=== PATIENT | male | born 1960 | race Caucasian/White ===

== ENCOUNTER 2020-04-27 15:09 | Emergency (ER) | payer BC, SELFPAY ==
--- NOTE | ~2020-04-27 | CT_ITS ---
EXAMINATION: CT abdomen pelvis w con INDICATION: Diarrhea TECHNIQUE: Computed tomographic images of the abdomen and pelvis were obtained after the administrati on of 100 cc of Omnipaque 350 intravenous contrast. The dose-length product (DLP) was 991.60 mGy-cm. Automated exposure control and iterative reconstruction technique were employed. COMPARISON: None available FINDINGS: Minimal dependent atelectasis is present in the lung bases. The heart size is normal. The g allbladder is surgically absent. The liver is diffusely low in attenuation when compared with the spl een, consistent with hepatic steatosis. The spleen, pancreas, and adrenal glands are normal. The left kidney is unremarkable. There is a 1.4 x 1.1 cm exophytic soft tissue density lesion projecting from the posterolateral aspect of the right kidney lower pole. There is calcified atherosclerosis of the aorta and many of the other arteries. No pathologically enlarged abdominal or pelvic lymph nodes are identified. There is no free intraperitoneal gas or evidence of bowel obstruction. There was liquid s tool in the colon to the level of the rectum, consistent with clinical history of diarrhea. There is mild lumbar spondylosis. There is a small fat-containing umbilical hernia. IMPRESSION: 1. Liquid stool in colon to the level of the rectum, consistent with history of diarrhea. 2. Indeterminate right kidney mass. Follow-up with nonemergent CT or MRI without and with contrast is recommended. Reviewed, dictated and finalized at location A. IMPRESSION: 1. Liquid stool in colon to the level of the rectum, consistent with history of diarrhea. 2. Indeterminate right kidney mass. Follow-up with nonemergent CT or MRI withou t and with contrast is recommended.
[2020-04-27 15:14] VITALS: BP 147/67; PULSE 73; RESP 20; TEMP 36.2; O2SAT 98
[2020-04-27] MEDS: ONDANSETRON INJ 4 MG/2 ML VIAL IV PUSH (15:36)
[2020-04-27] MEDS: FAMOTIDINE 20 MG/2 ML VIAL IV PUSH (15:36)
[2020-04-27] MEDS: SODIUM CHLORIDE 0.9% IV 1,000 ML 999 ML IV CONT (15:36)
[2020-04-27 15:41] LABS: Basophils Absolute Auto 0.1 K/mm3 (0.0-0.1); Basophils Percent Auto 0.7 % (0.2-1.2); Eosinophils Absolute Auto 0.4 K/mm3 (0-0.3); Eosinophils Percent Auto 4.7 % (0-4.4); Hematocrit 38.3 % (42.0-52.0); Immature Granulocyte Absolute 0.02 K/mm3 (0.00-0.031); Immature Granulocyte Percent A 0.2 % (0-0.5); Lymphocytes Absolute Auto 2.53 K/mm3 (0.9-3.2); Lymphocytes Percent Auto 28.7 % (18.3-44.2); Mean Corpuscular HGB Conc 33.9 g/dl (32-36); Mean Corpuscular Hemoglobin 29.7 pg (26-34); Mean Corpuscular Volume 87.4 fl (80-100); Mean Platelet Volume 10.2 fl (7.4-10.4); Monocytes Absolute Auto 0.8 K/mm3 (0.1-0.6); Monocytes Percent Auto 9.4 % (2.6-8.5); Neutrophils Percent Auto 56.3 % (45.5-73.1); Platelet Count Result 285 k/mm3 (150-375); Red Blood Count 4.38 M/mm3 (4.6-6.20); Red Cell Distribution Width 13.2 % (11.5-14.5); White Blood Count 8.8 K/mm3 (4.5-10.0)
--- NOTE | 2020-04-27 15:47 | ED.GENADULT ---
HPI - General Adult General Chief complaint: Nausea/Vomiting/Diarrhea <Mal Pichardo PA-C - Last Filed: 04/27/20 19:15> Stated complaint: diarrhea <Mal Pichardo PA-C - Last Filed: 04/27/20 19:15> Time Seen by Provider: 04/27/20 15:19 <Mla Pichardo PA-C - Last Filed: 04/27/20 19:15> Source: patient <Mal Pichardo PA-C - Last Filed: 04/27/20 19:15> Mode of arrival: ambulatory <Mal Pichardo PA-C - Last Filed: 04/27/20 19:15> Limitations: no limitations <Mal Pichardo PA-C - Last Filed: 04/27/20 19:15> History of Present Illness HPI narrative: Patient is a 59-year-old male who presents to emergency department for evaluation of abdominal pain in the lower quadrants of the abdomen coupled with multiple loose stools for which she has been taken Imodium patient on arrival to emergency department is in the room in no distress denies similar occurrence in the past or any sick contacts patient. Denies rectal bleeding or melena. Notes nausea but denies emesis <Mal Pichardo PA-C - Last Filed: 04/27/20 19:15> Related Data Allergies/adverse reactions: Allergies Allergy/AdvReac Type Severity Reaction Status Date / Time No Known Allergies Allergy Verified 04/27/20 15:16 <Mal Pichardo PA-C - Last Filed: 04/27/20 19:15> Review of Systems Review of Systems: All systems reviewed & are unremarkable except as noted in HPI and below <Mal Pichardo PA-C - Last Filed: 04/27/20 19:15> [facility] Past Medical History Medical History: Medical History Alternating constipation and diarrhea Colon cancer screening GERD (gastroesophageal reflux disease) Psoriasis <Mal Pichardo PA-C - Last Filed: 04/27/20 19:15> Family History Family History: Family History (Updated 07/26/19 @ 14:40 by DOCTOR UNKNOWN) Father Family history of diabetes mellitus in first degree relative Family history of heart disease in male family member before age 55 Diabetes mellitus Mother Family history of diabetes mellitus in first degree relative Diabetes mellitus Grandparent Family history of malignant neoplasm Other Family history of allergic disorder Family history of tuberculosis Hypertension <Mal Pichardo PA-C - Last Filed: 04/27/20 19:15> Social History Social History: Social History Smoking status: Current every day smoker Alcohol intake: current <Mal Pichardo PA-C - Last Filed: 04/27/20 19:15> Exam Narrative: Exam Narrative: GENERAL: Well-appearing, well-nourished, and in no acute distress. HEAD: Normocephalic, atraumatic. EYES: PERRLA and EOMI. ENT: Nares clear, no rhinorrhea or epistaxis. Mucous membranes moist. CHEST: Clear to auscultation. No respiratory distress. No wheezes rales or rhonchi HEART: Regular rate and rhythm. No murmur heard. Normal peripheral pulses. ABDOMEN: Soft, tenderness in the lower quadrants of the abdomen, distended EXTREMITIES: Normal range of motion. No edema. SKIN: Warm, dry, no rash. NEURO: No focal deficits. Alert and oriented x3. Cranial nerves II through XII grossly intact PSYCH: Normal mood and affect. <Mal Pichardo PA-C - Last Filed: 04/27/20 19:15> Course Course Emergency Course: Patient in the room aware of case findings treatment plan and diagnosis agreeing to follow-up as directed or to return if symptoms worsen or concerns patient aware of case findings was given 3 L of fluid in the emergency department will be discharged home. Provided with reasons to return <Mal Pichardo PA-C - Last Filed: 04/27/20 19:15> Vital Signs Vital signs: Vital Signs Temperature 97.1 F L 04/27/20 15:14 Pulse Rate 73 04/27/20 15:14 Respiratory Rate 20 04/27/20 15:14 Blood Pressure 147/67 H 04/27/20 15:14 Pulse Oximetry 98 04/27/20 15:14 Te
[2020-04-27 16:02] LABS: Alanine Aminotransferase 92 U/L (4-50); Albumin Level 5.2 g/dL (3.5-5.1); Alkaline Phosphatase 71 U/L (38-126); Anion Gap 20.6 mmol/L (7-16); Aspartate Amino Transferase 85 U/L (17-59); Bilirubin,Total 0.8 mg/dL (0.2-1.3); Blood Urea Nitrogen 26 mg/dL (9-20); Calcium 9.8 mg/dL (8.4-10.2); Carbon Dioxide 19 mmol/L (22-30); Chloride 102 mmol/L (98-107); Estimated CRCL calculation 46 ml/min; Estimated Glomerular Filt Rate 42; Glucose 141 mg/dL (75-110); Lipase 113 U/L (23-300); Potassium 4.6 mmol/L (3.4-5.0); Sodium 137 mmol/L (137-145)
[2020-04-27] MEDS: LACTATED RINGERS 1,000 ML 999 ML IV CONT ×2 (17:00→18:05)
[2020-04-27 18:13] VITALS: BP 136/78; PULSE 80; RESP 12; O2SAT 99
[2020-04-27 18:36] LABS: Add Urine Microscopic? NO; Appearance Urine Clear (Clear); Bilirubin Urine Negative (Negative); Blood Urine Negative (Negative); Color Urine Colorless (Yellow); Glucose Urine UA Negative (Negative); Ketones Urine Negative (Negative); Leukocyte Esterase Ur Negative LEU/UL (Negative); Nitrate Urine Negative (Negative); Protein Urine Negative (Negative); Specific Grav Ur 1.016 (1.001-1.035); Urobilinogen Urine Negative mg/dL (<2.0)
[2020-04-27 19:32] VITALS: BP 141/82; PULSE 76; RESP 18; TEMP 36.7; O2SAT 99
== END 2020-04-27 19:33 | disposition home or self-care (01) ==
PROVIDERS: Emergency Medicine Emergency Medical Services; Emergency Provider Emergency Medicine; PCP Family Medicine Sports Medicine
DX: R19.7 Diarrhea, unspecified (principal); E86.0 Dehydration; K21.9 Gastro-esophageal reflux disease without esophagitis; F17.200 Nicotine dependence, unspecified, uncomplicated
CPT/HCPCS: 36415; 74177; 80053; 81003; 83690; 85025; 96361; 96374; 96375; 99284; J2405; J7030; J7120; Q9967

== ENCOUNTER 2021-04-20 00:18 | Day surgery (SDC) | payer BC, SELFPAY ==
[2021-04-04 12:28] VITALS: BMI 27.6
[2021-04-20 10:34] LABS: Glucose Point of Care 117 mg/dl (65-105)
[2021-04-20 10:35] VITALS: BP 150/78; PULSE 71; RESP 16; TEMP 36.3; O2SAT 98; BMI 29.0
[2021-04-20] MEDS: LACTATED RINGERS 1,000 ML 150 ML IV CONT (10:43)
--- NOTE | 2021-04-20 10:48 | WPDANESEPPF ---
Anes - Initial Pre Proc Eval Procedure: Operation Date: 04/20/21 11:30 Proposed Procedures p Esophagogastroduodenoscopy - Cecil Rai MD Date/Time: 04/20/21 10:48 Surgeon: eCcil Rai MD Pre Op Diagnosis: GERD Patient Data Age: 60 Gender: M Height: 1.8 m Weight: 94.3 kg Last Vital Signs Temp 36.3 C L 04/20/21 10:35 Pulse 71 04/20/21 10:35 Resp 16 04/20/21 10:35 BP 150/78 H 04/20/21 10:35 Pulse Ox 98 04/20/21 10:35 Allergies Allergy/AdvReac Type Severity Reaction Status Date / Time No Known Allergies Allergy Verified 04/20/21 10:34 Home Medications Medication Instructions Recorded Confirmed Type amlodipine 10 mg tablet 10 mg PO DAILY 02/08/21 04/04/21 History aspirin 81 mg tablet,delayed 81 mg PO DAILY 02/08/21 04/04/21 History release atorvastatin 40 mg tablet 40 mg PO DAILY 02/08/21 04/04/21 History certolizumab pegol 400 mg SUBCUT ONCE 02/08/21 04/04/21 History dulaglutide 0.75 mg/0.5 mL 0.75 mg SUBCUT WEEKLY 02/08/21 04/04/21 History subcutaneous pen injector fenofibrate 40 mg tablet 48 mg PO DAILY tablet 02/08/21 04/04/21 History icosapent ethyl 1 gram capsule 2 g PO BID 02/08/21 04/04/21 History losartan 100 1 tablet PO DAILY 02/08/21 04/04/21 History mg-hydrochlorothiazide 12.5 mg tablet meloxicam 7.5 mg tablet 7.5 mg PO DAILY 02/08/21 04/04/21 History metformin 1,000 mg tablet 1,000 mg PO BID 02/08/21 04/04/21 History metoprolol tartrate 50 mg tablet 50 mg PO Q12H 02/08/21 04/04/21 History Laboratory Tests 04/20/21 10:31 POC Capillary Glucose 117 mg/dl H mg/dl (65-105) Patient hx anesthesia problems: none Family hx anesthesia problems: none PMFSH Past Medical History Medical History Alternating constipation and diarrhea Arthritis Bloating CAD (coronary artery disease) Chronic pain syndrome Colon cancer screening Diabetes GERD (gastroesophageal reflux disease) Hyperlipidemia Hypertension Irritable bowel syndrome with diarrhea Myocardial infarction Psoriasis Surgical History Surgical History Stented coronary artery Family History Family History Father Family history of diabetes mellitus in first degree relative Family history of heart disease in male family member before age 55 Diabetes mellitus Mother Family history of diabetes mellitus in first degree relative Diabetes mellitus Grandparent Family history of malignant neoplasm Other Family history of allergic disorder Family history of tuberculosis Hypertension Social History Social History Smoking status: Former smoker Tobacco type: cigarettes Alcohol intake: current Alcohol use details: socially Substance use: never Substance use type: does not use Gender identity (if verbalized by the patient): Male Spiritual care concerns: No Anes - Eval Final PreProcedure Day of Procedure 04/20/21 10:48 Patient weight: obese Heart: regular rate and rhythm Lungs: decreased breath sounds Airway: Mallampati scale class III Neurological: alert and oriented ASA classification: III Emergent: no Anesthetic plan: proceed Anesthesia type and monitoring: general GIVS and standard monitoring Informed Consent: The patient's anesthetic plan and its attendant risks and benefits were discussed with the patient/family/POA. Questions were solicited and answers provided to the satisfaction of the patient/family/POA.
--- NOTE | 2021-04-20 12:25 | PM.HPGS ---
History of Present Illness History of Present Illness Consent: Risks, benefits, and alternatives have been discussed and questions answered. Patient agrees to proceed with procedure. Chief complaint: GERD Narrative: Alberto Schroeder is a 60 year old male with gerd controlled with ppi but recurrent bloating and diarrhea (improved briefly after second round of xifaxan), colonoscopy 2019 in [facility]. Review of Systems Constitutional: Constitutional: Denies headache(s) and Denies weakness Eyes: Eyes: Denies blurry vision ENT: Reports Normal hearing present, Denies headache(s) and Denies neck pain Cardiovascular: Cardiovascular: Denies chest pain and Denies dyspnea Respiratory: Respiratory: Denies dyspnea Gastrointestinal: Gastrointestinal: Reports no additional gastrointestinal complaints Genitourinary: Genitourinary: Denies dysuria Musculoskeletal: Musculoskeletal: Denies neck pain Integumentary/Breasts: Skin/Breast: Denies dry skin Neurologic: Reports Normal hearing present, Denies headache(s) and Denies weakness Psychiatric: Psychiatric: Denies anxiety Endocrine: Endocrine: Denies change in body appearance Hematologic/Lymphatic: Hematologic/Lymphatic: Denies easy bleeding Allergic/Immunologic: Allergic/Immunologic: Denies urticaria PMFSH Past Medical History Medical History Alternating constipation and diarrhea Arthritis Bloating CAD (coronary artery disease) Chronic pain syndrome Colon cancer screening Diabetes GERD (gastroesophageal reflux disease) Hyperlipidemia Hypertension Irritable bowel syndrome with diarrhea Myocardial infarction Psoriasis Surgical History Surgical History Stented coronary artery Family History Family History Father Family history of diabetes mellitus in first degree relative Family history of heart disease in male family member before age 55 Diabetes mellitus Mother Family history of diabetes mellitus in first degree relative Diabetes mellitus Grandparent Family history of malignant neoplasm Other Family history of allergic disorder Family history of tuberculosis Hypertension Social History Social History Smoking status: Former smoker Tobacco type: cigarettes Alcohol intake: current Alcohol use details: socially Substance use: never Substance use type: does not use Gender identity (if verbalized by the patient): Male Spiritual care concerns: No Meds Home Medications and Allergies Home Medications Medication Instructions Recorded Confirmed Type amlodipine 10 mg tablet 10 mg PO DAILY 02/08/21 04/20/21 History aspirin 81 mg tablet,delayed 81 mg PO DAILY 02/08/21 04/20/21 History release atorvastatin 40 mg tablet 40 mg PO DAILY 02/08/21 04/20/21 History certolizumab pegol 400 mg SUBCUT ONCE 02/08/21 04/20/21 History dulaglutide 0.75 mg/0.5 mL 0.75 mg SUBCUT WEEKLY 02/08/21 04/20/21 History subcutaneous pen injector fenofibrate 40 mg tablet 48 mg PO DAILY tablet 02/08/21 04/20/21 History icosapent ethyl 1 gram capsule 2 g PO BID 02/08/21 04/20/21 History losartan 100 1 tablet PO DAILY 02/08/21 04/20/21 History mg-hydrochlorothiazide 12.5 mg tablet meloxicam 7.5 mg tablet 7.5 mg PO DAILY 02/08/21 04/20/21 History metformin 1,000 mg tablet 1,000 mg PO BID 02/08/21 04/20/21 History metoprolol tartrate 50 mg tablet 50 mg PO Q12H 02/08/21 04/20/21 History Allergies Allergy/AdvReac Type Severity Reaction Status Date / Time No Known Allergies Allergy Verified 04/20/21 10:34 Vital Signs Vital Signs - 24 hr 04/20/21 10:35 Temperature 97.3 F L Pulse Rate 71 Respiratory Rate 16 Blood Pressure 150/78 H Pulse Oximetry 98 Exam Const: General: comfortable and no acute distress HENMT:
[2021-04-20] MEDS: BENZOCAINE (*SP) 60 ML SPRAY CAN (HURRICAINE) 1 SPRAY MUCOUS MEM (12:36)
[2021-04-20 12:50] VITALS: BP 143/70; PULSE 80; RESP 24; O2SAT 100
[2021-04-20 13:00] VITALS: BP 152/73; PULSE 72; RESP 20; O2SAT 97
[2021-04-20 13:10] VITALS: BP 145/79; PULSE 67; RESP 20; O2SAT 98
== END 2021-04-20 13:21 | disposition home or self-care (01) ==
PROVIDERS: PCP Family Medicine Sports Medicine; Visit Provider Internal Medicine Gastroenterology
PROC: 0DJ08ZZ Inspection of Upper Intestinal Tract, Via Natural or Artificial Opening Endoscopic (ICD-10-PCS; CPT 43235; principal; 2021-04-20 11:30)
DX: K21.9 Gastro-esophageal reflux disease without esophagitis (principal); K29.70 Gastritis, unspecified, without bleeding; K58.2 Mixed irritable bowel syndrome; R14.0 Abdominal distension (gaseous); I25.10 Atherosclerotic heart disease of native coronary artery without angina pectoris; E11.9 Type 2 diabetes mellitus without complications; E78.5 Hyperlipidemia, unspecified; I10 Essential (primary) hypertension; I25.2 Old myocardial infarction; L40.9 Psoriasis, unspecified; M19.90 Unspecified osteoarthritis, unspecified site; G89.29 Other chronic pain; Z95.5 Presence of coronary angioplasty implant and graft; Z87.891 Personal history of nicotine dependence
CPT/HCPCS: 43239; 82948; 87070; 87075; 87077; 87185; 87205; 88305; 88342; J2704; J7120

== ENCOUNTER 2021-04-20 09:10 | Outpatient (CLI) | payer BC, SELFPAY ==
[2021-04-20 09:36] LABS: Basophils Absolute Auto 0.1 K/mm3 (0.0-0.1); Basophils Percent Auto 0.9 % (0.2-1.2); Eosinophils Absolute Auto 0.2 K/mm3 (0-0.3); Eosinophils Percent Auto 2.5 % (0-4.4); Hematocrit 38.2 % (42.0-52.0); Hemoglobin 12.3 g/dL (14.0-18.0); Immature Granulocyte Absolute 0.02 K/mm3 (0.00-0.031); Immature Granulocyte Percent A 0.3 % (0-0.5); Lymphocytes Absolute Auto 2.79 K/mm3 (0.9-3.2); Lymphocytes Percent Auto 37.3 % (18.3-44.2); Mean Corpuscular HGB Conc 32.2 g/dl (32-36); Mean Corpuscular Hemoglobin 28.6 pg (26-34); Mean Corpuscular Volume 88.8 fl (80-100); Mean Platelet Volume 9.6 fl (7.4-10.4); Monocytes Absolute Auto 0.5 K/mm3 (0.1-0.6); Monocytes Percent Auto 7.2 % (2.6-8.5); Neutrophils Absolute Auto 3.9 K/mm3 (1.3-6.7); Neutrophils Percent Auto 51.8 % (45.5-73.1); Platelet Count Result 279 k/mm3 (150-375); Red Cell Distribution Width 13.2 % (11.5-14.5); White Blood Count 7.5 K/mm3 (4.5-10.0)
[2021-04-20 09:58] LABS: Alanine Aminotransferase 48 U/L (4-50); Albumin Level 4.9 g/dL (3.5-5.1); Alkaline Phosphatase 62 U/L (38-126); Anion Gap 14 mmol/L (8-16); Aspartate Amino Transferase 43 U/L (17-59); Bilirubin,Total 0.6 mg/dL (0.2-1.3); Blood Urea Nitrogen 26 mg/dL (9-20); Calcium 9.7 mg/dL (8.4-10.2); Carbon Dioxide 24 mmol/L (22-30); Chloride 101 mmol/L (98-107); Estimated Glomerular Filt Rate 39; Glucose 131 mg/dL (75-110); Potassium 4.6 mmol/L (3.4-5.0); Sodium 139 mmol/L (137-145)
== END 2021-04-20 09:11 | disposition home or self-care (01) ==
LOC: ANHLAB 09:11
PROVIDERS: PCP Family Medicine Sports Medicine; Visit Provider Internal Medicine Cardiovascular Disease
DX: I25.118 Atherosclerotic heart disease of native coronary artery with other forms of angina pectoris (principal)
CPT/HCPCS: 36415; 80053; 85025

== ENCOUNTER 2021-04-24 01:25 | Day surgery (SDC) | payer BC, SELFPAY ==
[2021-04-24] VITALS (19 sets, daily range): BP systolic 132–163; BP diastolic 45–91; PULSE 65–90; RESP 10–20; TEMP 36.4–36.7; O2SAT 96–100; BMI 28.8
--- NOTE | 2021-04-24 10:14 | WPDMODSED ---
Moderate Sedation Note-Pt Data Patient Data Allergies Allergy/AdvReac Type Severity Reaction Status Date / Time No Known Allergies Allergy Verified 04/20/21 10:34 Home Medications Medication Instructions Recorded Confirmed Type amlodipine 10 mg tablet 10 mg PO DAILY 02/08/21 04/23/21 History aspirin 81 mg tablet,delayed 81 mg PO DAILY 02/08/21 04/23/21 History release atorvastatin 40 mg tablet 40 mg PO DAILY 02/08/21 04/23/21 History certolizumab pegol 400 mg SUBCUT ONCE 02/08/21 04/23/21 History dulaglutide 0.75 mg/0.5 mL 0.75 mg SUBCUT WEEKLY 02/08/21 04/23/21 History subcutaneous pen injector fenofibrate 40 mg tablet 48 mg PO DAILY tablet 02/08/21 04/23/21 History icosapent ethyl 1 gram capsule 2 g PO BID 02/08/21 04/23/21 History losartan 100 1 tablet PO DAILY 02/08/21 04/23/21 History mg-hydrochlorothiazide 12.5 mg tablet meloxicam 7.5 mg tablet 15 mg PO DAILY 02/08/21 04/23/21 History metformin 1,000 mg tablet 1,000 mg PO BID 02/08/21 04/23/21 History metoprolol tartrate 50 mg tablet 50 mg PO Q12H 02/08/21 04/23/21 History clobetasol 1 applic TOPICAL PRN PRN 04/23/21 04/23/21 History [id number] oil-D3 1 cap PO 04/23/21 History [Vitamin-D + [place]-3] Current Medications: Active Medications Sodium Chloride (Normal Saline Iv) 500 mls @ 100 mls/hr IV CONT .Q5H JESUS Sedation/Anesthesia: No previous sedation/anesthesia problems (including family history). [facility] Past Medical History Medical History Alternating constipation and diarrhea Arthritis Bloating CAD (coronary artery disease) Chronic pain syndrome Colon cancer screening Diabetes GERD (gastroesophageal reflux disease) Hyperlipidemia Hypertension Irritable bowel syndrome with diarrhea Myocardial infarction Psoriasis Surgical History Surgical History Stented coronary artery Family History Family History Father Family history of diabetes mellitus in first degree relative Family history of heart disease in male family member before age 55 Diabetes mellitus Mother Family history of diabetes mellitus in first degree relative Diabetes mellitus Grandparent Family history of malignant neoplasm Other Family history of allergic disorder Family history of tuberculosis Hypertension Social History Social History Smoking status: Former smoker Tobacco type: cigarettes Additional smoking assessment comments: 3/4 PPD for 40 years Alcohol intake: never Alcohol use details: socially Substance use: never Substance use type: does not use Living arrangements: with family Additional living arrangements comments: with juventino Gender identity (if verbalized by the patient): Male Spiritual care concerns: No Mod Sed Physical Exam Physical Exam Pre Procedural Exam: Normal: Airway Hours since solid foods: 10 Hours since liquid intake: 10 Mallampati Classification: class II Internal Medicine - PN: Obj Da Vital Signs Vital Signs: Vital Signs - 24 hr 04/24/21 09:00 Temperature 36.4 C Pulse Rate 68 Respiratory Rate 11 L Blood Pressure 143/72 H Pulse Oximetry 96 Meds/Results Medications: Active Medications Generic Name Dose Route Start Last Admin Trade Name Freq PRN Reason Stop Dose Admin Sodium Chloride 500 mls @ 100 mls/hr 04/24/21 08:30 Normal Saline Iv IV CONT .Q5H JESUS ASA Classification/Sedation ASA Classification/Sedation ASA Class: III Emergent: No Risks: Risks, benefits and alternatives explained and patient/family accepted plan for sedation. Patient re-evaluated immediately prior to sedation.
--- NOTE | 2021-04-24 10:15 | WPDHPUPDATE1 ---
History and Physical Update Update Date/Time: 04/24/21 10:15 History and Physical has been reviewed, including an updated exam of the patient. There are NO changes in the patient's condition. Risks, benefits, and alternatives have been discussed and questions answered. Patient agrees to proceed with procedure.
--- NOTE | 2021-04-24 11:22 | WPDCARDPROC ---
Cardiac Cath Procedure Note Date of procedure:: 04/24/21 Performing physician:: Edwin Eastman MD Procedure Procedure note:: LEFT HEART CATHETERIZATION AND CORONARY ANGIOGRAM REPORT DATE OF PROCEDURE: 04/24/2021 INDICATION FOR PROCEDURE: Angina, CAD, history of PCI/stenting BRIEF CLINICAL HISTORY: 60-year-old male with CAD, history of PA, status post PCI/bare metal stenting of OM branch ( in ?2001 at [facility], intervention report not available), hypertension, diabetes mellitus, CKD, psoriatic arthritis; history of right groin pseudoaneurysm. Patient was referred by Dr. Berman for cardiac catheterization in the setting of anginal chest pain. Patient has been experiencing chest discomfort with radiation to the jaw and left arm associated with shortness of breath . Patient was prehydrated with normal saline prior to the catheterization. Benefits and risks of the procedure were discussed with the patient in depth, and informed consent was obtained prior to the procedure. Risks of the procedure include but are not limited to vascular complications including groin hematoma, retroperitoneal bleed, vessel perforation; periprocedural PA, cardiac arrhythmias, stroke, contrast induced nephropathy, and . After discussing all the benefits, risks and alternatives, patient was willing to proceed with the procedure. PROCEDURES PERFORMED: 1. Left heart catheterization- Selective left and right coronary angiogram; LV pressure measurement and hemodynamic assessment 2. Moderate sedation-CPT code 07797 MODERATE SEDATION: Midazolam 2 mg; fentanyl 50 mcg; Start time 1040 , Stop time 1106 ; Total [id number] time 26 minutes; Carmen Carranza RN was trained observer for moderate sedation. ACCESS SITE: Left common femoral artery PROCEDURE NOTE: After obtaining informed consent, patient was brought to catheterization lab and prepped and draped in a usual sterile manner. Patient has history of right femoral pseudoaneurysm repair. After local anesthesia with lidocaine, left common femoral artery access was taken with micropuncture needle followed by insertion of a 5 Lao sheath. Selective left and right coronary angiogram was performed using 5 Lao JL4 and JR4 catheters respectively. Orthogonal views were taken. Next, a 5 Lao pigtail catheter was advanced in the LV cavity and was flushed with normal saline. LV pressure measurement was performed LV gram was not performed due to patient's renal insufficiency. The gradient across the aortic valve was measured on the pullback of the catheter. The sheath was secured in place, which will be taken out in the analytical laboratory technician holding area, manual pressure will be used for local hemostasis. Patient tolerated procedure well without any immediate procedure related complications. FINDINGS: LEFT MAIN CORONARY: The left main coronary artery is a medium caliber vessel, no angiographic significant focal stenosis. The vessel bifurcates into LAD and left circumflex branches. LEFT ANTERIOR DESCENDING ARTERY: The LAD is a medium caliber vessel in the proximal most segment with minor irregularities. There is a high-grade about 80-90% stenosis in the lower part of the proximal segment at the origin of the major diagonal branch. The stenosis best seen in LEONARD cranial view. The major diagonal branch is a medium caliber vessel which arises at the site of the stenosis, however, the origin of the diagonal branch is not well visualized due to tortuosity in that segment. The remainder of the LAD in the mid segment has diffuse about 40% calcific stenosis. The LAD tapers distally and wraps LV apex. LEFT CIRCUMFLEX ARTERY: The left circumflex artery is a medium to large caliber, dominant vessel. There is poorly defined About 50-60% stenosis in the proximal -mid segment. The vessel gives rise to small caliber OM 1 to OM 3 branches, and medium caliber LPDA. previously placed stent in the LPDA is patent without significant lum
--- NOTE | 2021-04-24 14:31 | SUR.PHASEII ---
Unable to document administered medications in DEC. Called pharmacy to for assistance and still unable to document. The following medications have been given by this RN at these specified times: 10 mg hydralazine IV at 1141, 25 mcg fentanyl IV at 1211, additional 25 mcg IV at 1235. Administered dose of medications verified by second RNs Adriana Guillen RN and Lavinia Lua RN. Dr. Raiza rios.
== END 2021-04-24 19:18 | disposition home or self-care (01) ==
PROVIDERS: PCP Family Medicine Sports Medicine; Visit Provider Internal Medicine Cardiovascular Disease
PROC: 4A023N7 Measurement of Cardiac Sampling and Pressure, Left Heart, Percutaneous Approach (ICD-10-PCS; CPT 93452; principal; 2021-04-24 10:00)
DX: I25.10 Atherosclerotic heart disease of native coronary artery without angina pectoris (principal); R07.9 Chest pain, unspecified; I25.2 Old myocardial infarction; Z95.5 Presence of coronary angioplasty implant and graft; I12.9 Hypertensive chronic kidney disease with stage 1 through stage 4 chronic kidney disease, or unspecified chronic kidney disease; N18.9 Chronic kidney disease, unspecified; E11.22 Type 2 diabetes mellitus with diabetic chronic kidney disease; E78.5 Hyperlipidemia, unspecified; K58.0 Irritable bowel syndrome with diarrhea; L40.9 Psoriasis, unspecified; Z79.82 Long term (current) use of aspirin; Z79.84 Long term (current) use of oral hypoglycemic drugs; Z87.891 Personal history of nicotine dependence
CPT/HCPCS: 93458; C1887; C1894; J0360; J0461; J1644; J2250; J3010; J7030; J7040

== ENCOUNTER 2021-10-11 16:30 | Outpatient (RCR) | payer BC, SELFPAY ==
[2021-07-20 15:37] VITALS: PULSE 68
--- NOTE | 2021-08-20 15:21 | PCCPR ---
absent-not feeling well.
== END 2021-10-11 19:30 | disposition home or self-care (01) ==
LOC: ANHCPREHAB 16:30
PROVIDERS: PCP Family Medicine Sports Medicine; Visit Provider Internal Medicine Cardiovascular Disease
DX: Z95.1 Presence of aortocoronary bypass graft (principal)
CPT/HCPCS: 93798

== ENCOUNTER 2022-05-14 09:12 | Outpatient (CLI) | payer BC, SELFPAY ==
--- NOTE | ~2022-05-14 | XR_ITS ---
EXAMINATION: XR chest 2V 05/14/2022 09:25 INDICATION: Dyspnea with exertion. History of Covid. PROCEDURE: PA and lateral views of the chest COMPARISON: No prior studies for comparison FINDINGS: The lungs are clear. The cardiomediastinal silhouette is within normal limits. There are no pleural effusions. There is no pneumothorax suspected. Status post median sternotomy for CABG. IMPRESSION: 1: NO ACUTE CARDIOPULMONARY DISEASE. Reviewed, dictated and finalized at location A.
== END 2022-05-14 09:13 | disposition home or self-care (01) ==
PROVIDERS: PCP Family Medicine Sports Medicine; Visit Provider Internal Medicine Cardiovascular Disease
DX: R06.00 Dyspnea, unspecified (principal)
CPT/HCPCS: 71046

== ENCOUNTER 2022-05-14 14:22 | Outpatient (CLI) | payer BC, SELFPAY ==
--- NOTE | 2022-05-14 16:20 | WPDPFTINT ---
PFT Procedure Performed PFT Procedure Performed Spirometry with Pre/Post Bronchodilator Plethysmography (Lung Vol) Diffusing Cap (DLCO) Flow Vol Loop PFT Interpretation Lung volumes were measured with the body plethysmography method. Lung volumes are unremarkable. Spirometry showed normal expiratory flow rates and a normal FEV1 to FVC ratio of 75%. Lung diffusion capacity is mildly reduced at 61% predicted. No post bronchodilator study was carried out. Impression: Spirometry and lung volumes within normal range. Mild reduction in lung diffusion capacity.
== END 2022-05-14 14:23 | disposition home or self-care (01) ==
PROVIDERS: PCP Family Medicine Sports Medicine; Visit Provider Internal Medicine Cardiovascular Disease
DX: R06.00 Dyspnea, unspecified (principal); Z86.16 Personal history of COVID-19
CPT/HCPCS: 94375; 94726; 94729

== ENCOUNTER 2022-08-08 12:12 | Observation (INO) | payer BC, SELFPAY ==
[2022-08-08] VITALS (20 sets, daily range): BP systolic 141–213; BP diastolic 71–91; PULSE 68–103; RESP 12–18; TEMP 36.2–36.6; O2SAT 96–100; BMI 26.4
--- NOTE | ~2022-08-08 | CT_ITS ---
EXAMINATION: CTA chest PE protocol DATE: 08/09/2022 09:29 INDICATION: Chest pressure. TECHNIQUE: Computed tomography angiography (CTA) of the chest was performed with 100 mL Omnipaque-350 intravenous contrast timed to evaluate the pulmonary arteries. Coronal maximum intensity projection 3D-reconstructions were created by the technologist. Automated exposure control and iterative reconst ruction technique were employed. The dose-length product was 609.41 mGy-cm. COMPARISON: CT abdomen and pelvis 04/27/2020 FINDINGS: There is mild emphysema. There is mild atelectasis bilaterally. No pleural effusion. Cardio megaly is noted. No pericardial effusion. There are coronary artery calcifications. There are changes of coronary artery bypass grafting. There is no pulmonary embolus. There is diffuse hepatic steatosi s. There are changes of cholecystectomy. There are bridging endplate osteophytes at multiple levels i n the spine, consistent with diffuse idiopathic skeletal hyperostosis (DISH). IMPRESSION: 1. No pulmonary embolus. 2. Mild emphysema. Reviewed, dictated and finalized at location A.
--- NOTE | ~2022-08-08 | XR_ITS ---
EXAMINATION: XR chest 2V DATE: 08/08/2022 12:49 INDICATION: Palpitations. Chest pressure. TECHNIQUE: Frontal and lateral views of the chest were obtained. COMPARISON: Chest 2 views 05/14/22, CT abdomen and pelvis 04/27/2020 FINDINGS: The chest demonstrates clear lungs without pneumonia, pleural effusion, or pneumothorax. Th e heart size is normal. Median sternotomy wires and mediastinal surgical clips are seen, likely from prior coronary artery bypass grafting. Surgical clips in the right upper quadrant are likely from cho lecystectomy. There are changes of anterior fusion procedure in cervical spine. IMPRESSION: 1. No acute cardiopulmonary disease. Reviewed, dictated and finalized at location A.
--- NOTE | 2022-08-08 12:14 | ECG_ITS ---
Measurements Intervals [place] Rate: 90 P: 62 SD: 136 QRS: -42 QRSD: 102 T: 58 QT: 360 QTc: 442 Interpretive Statements SINUS RHYTHM LEFT AXIS DEVIATION INCOMPLETE RIGHT BUNDLE BRANCH BLOCK BORDERLINE R WAVE PROGRESSION, ANTERIOR LEADS BORDERLINE ST-T WAVE ABNORMALITY- ANT/HIGH LAT LEADS BORDERLINE ECG NO PREVIOUS ECG AVAILABLE FOR COMPARISON Electronically Signed On 08-08-2022 12:53:16 CDT by Per Hernandez D.O.
[2022-08-08] MEDS: ASPIRIN 81 MG CHEWABLE TABLET 324 MG PO (12:31)
[2022-08-08 12:40] LABS: Basophils Absolute Auto 0.1 K/mm3 (0.0-0.1); Basophils Percent Auto 0.8 % (0.2-1.2); Eosinophils Absolute Auto 0.2 K/mm3 (0-0.3); Eosinophils Percent Auto 2.4 % (0-4.4); Hematocrit 34.4 % (42.0-52.0); Hemoglobin 10.7 g/dL (14.0-18.0); Immature Granulocyte Absolute 0.03 K/mm3 (0.00-0.031); Immature Granulocyte Percent A 0.3 % (0-0.5); Lymphocytes Absolute Auto 2.24 K/mm3 (0.9-3.2); Mean Corpuscular HGB Conc 31.1 g/dl (32-36); Mean Corpuscular Hemoglobin 25.4 pg (26-34); Mean Corpuscular Volume 81.7 fl (80-100); Mean Platelet Volume 9.8 fl (7.4-10.4); Monocytes Absolute Auto 0.7 K/mm3 (0.1-0.6); Monocytes Percent Auto 8.1 % (2.6-8.5); Neutrophils Absolute Auto 5.4 K/mm3 (1.3-6.7); Neutrophils Percent Auto 62.4 % (45.5-73.1); Platelet Count Result 294 k/mm3 (150-375); Red Blood Count 4.21 M/mm3 (4.6-6.20); Red Cell Distribution Width 14.8 % (11.5-14.5); White Blood Count 8.6 K/mm3 (4.5-10.0)
[2022-08-08 12:50] LABS: Prothrombin Time 12.6 Seconds (11.1-14.7)
[2022-08-08 12:51] LABS: Partial Thromboplastin Time 35.8 SECONDS (22.3-36.8)
[2022-08-08 13:04] LABS: Alanine Aminotransferase 36 U/L (6-50); Alkaline Phosphatase 63 U/L (38-126); Anion Gap 15 mmol/L (8-16); Aspartate Amino Transferase 42 U/L (17-59); Bilirubin,Total 0.4 mg/dL (0.2-1.3); Blood Urea Nitrogen 23 mg/dL (9-20); Calcium 9.4 mg/dL (8.4-10.2); Carbon Dioxide 24 mmol/L (22-30); Chloride 98 mmol/L (98-107); Estimated CRCL calculation 50 ml/min; Estimated Glomerular Filt Rate 48; Glucose 114 mg/dL (65-110); Lipase 102 U/L (23-300); Potassium 4.3 mmol/L (3.4-5.0); Sodium 137 mmol/L (137-145)
[2022-08-08 13:16] LABS: Troponin I < 0.012 ng/mL (0.000-0.034)
--- NOTE | 2022-08-08 13:21 | ED.ARRPALP ---
HPI - Arrhythmia/Palpitations General Chief Complaint: Arrhythmia/Palpitations Stated Complaint: palpations Time Seen by Provider: 08/08/22 12:47 History of Present Illness HPI narrative: Patient is a 61-year-old male with a history of CAD status post CABG x3, hypertension, hyperlipidemia, diabetes presenting with palpitations and chest pressure. Patient states that he woke this morning around 6 AM and noticed that his heart was racing. States that this was associated with chest pressure as well as intermittent shortness of breath and diaphoresis. States that it would worsen as he was exerting himself and if he sat down for an extended period, his breathing and pulse rate would improve. States that Max heart rate was in the 120s. Patient reports having CABG approximately 1 year ago. Since that time, he states he has had very brief episodes of some chest pressure but they have never lasted this long. Patient also reports that he stopped taking metoprolol 4 days ago due to a cough. He denies fevers, headache, numbness or weakness, lightheadedness, cough, abdominal pain, nausea or vomiting, diarrhea, leg swelling. States he has been compliant with his daily aspirin and Plavix. States he received 4 baby aspirin from EMS earlier. Related Data Home Medications Medication Instructions Recorded Confirmed amlodipine 10 mg tablet 10 mg PO DAILY 02/08/21 08/08/22 aspirin 81 mg tablet,delayed 81 mg PO DAILY 02/08/21 08/08/22 release dulaglutide 0.75 mg/0.5 mL 0.75 mg subcut WEEKLY 02/08/21 08/08/22 subcutaneous pen injector (Trulicity) fenofibrate 40 mg tablet 48 mg PO HS 02/08/21 08/08/22 losartan 100 1 tablet PO DAILY 02/08/21 08/08/22 mg-hydrochlorothiazide 12.5 mg tablet metoprolol tartrate 50 mg tablet 50 mg PO Q12H 02/08/21 08/08/22 certolizumab pegol 400 mg/2 mL See Rx Instructions .Route 07/20/21 08/08/22 (200 mg/mL x2) subcutaneous .COMPLEX psorasis syringe kit (Cimzia) clopidogrel 75 mg tablet 75 mg PO DAILY 07/20/21 08/08/22 icosapent ethyl 0.5 gram capsule 1 g PO Q12H 07/20/21 08/08/22 (Vascepa) metformin 500 mg tablet 1,000 mg PO BID 07/20/21 08/08/22 ergocalciferol (vitamin D2) 1,000 1,000 unit PO DAILY 08/08/22 08/08/22 unit capsule omeprazole 20 mg capsule,delayed 20 mg PO DAILY 08/08/22 08/08/22 release rosuvastatin 40 mg tablet 40 mg DAILY 08/08/22 08/08/22 Allergies Allergy/AdvReac Type Severity Reaction Status Date / Time lisinopril AdvReac Cough Verified 08/08/22 17:12 Review of Systems Review of Systems: All systems reviewed & are unremarkable except as noted in HPI and below PMFSH Past Medical History Medical History (Updated 08/10/22 @ 13:10 by Geri Epstein MD) Alternating constipation and diarrhea Arthritis Bloating CAD (coronary artery disease) Chronic pain syndrome Chronic renal disease, stage 3, moderately decreased glomerular filtration rate (GFR) between 30-59 mL/min/1.73 square meter Colon cancer screening Diabetes GERD (gastroesophageal reflux disease) Hemorrhage following tonsillectomy and adenoidectomy Hyperlipidemia Hypertension Irritable bowel syndrome with diarrhea Myocardial infarction Psoriasis Psoriatic arthritis Surgical History Surgical History (Updated 08/08/22 @ 22:41 by Josefina Wu NP) History of eyelid surgery History of foot surgery Hx of cholecystectomy S/P CABG x 3 Stented coronary artery Family History Family History Father Family history of heart disease in male family member before age 55 Diabetes mellitus Family history of diabetes mellitus in first degree relative Hypertension Heart disease Acute myocardial infarction Mother Diabetes mellitus Family history of diabetes mellitus in first degree relative Hyperlipemia Hypertension Heart disease Acute myocardial infarction Grandparent Family history of malignant neoplasm Other Family history of
--- NOTE | 2022-08-08 14:42 | PC.NURSE ---
Patient ambulatory to the BR with steady gait.
--- NOTE | 2022-08-08 17:35 | ADMGEN ---
This patient, Alberto Schroeder, was admitted to IMU Room 214-01 @ 1530. Patient oriented to hospital policies and general routines including ID bracelet, bed and alarms, visiting hours, pain management, procedures, bathroom and other care routines, personal items, smoking policy, room service/diet, and visiting hours. Information on how to activate the Rapid Response Team has been discussed. Patient encouraged to report perceived risks to care and to ask questions if they do not understand what he is told
[2022-08-08 17:58] LABS: Troponin I < 0.012 ng/mL (0.000-0.034)
[2022-08-08 21:59] LABS: Troponin I < 0.012 ng/mL (0.000-0.034)
--- NOTE | 2022-08-08 22:34 | PM.IMHP ---
H&P: HPI History of Present Illness Date/Time: 08/08/22 22:34 Chief Complaint: Arrhythmia palpitations Narrative: this is a 61-year-old male patient who has a history of coronary artery disease with 1 [address] bypass approximately 1 year ago. He also has a history of hypertension, hyperlipidemia and diabetes. The patient was having palpitations and chest pain. He woke up this morning around 6:00 a.m. and noticed his heart racing. He also had some chest pressure as well as intermittent shortness of breath and diaphoresis. The pain worsened with movement and then calmed down once he sat down for an extended period time. His pulse and breathing would improve after he rested for quite a bit. He stated that his heart rate got up to 120s. The patient has had some chest pressure in the past after his CABG but it did not last this long. He denies any fever or chills. No lightheadedness. No cough for fever chills. No nausea vomiting or diarrhea. The patient stated he believes he had a echo the last 3 months. He has been compliant with his aspirin and Plavix. He received 4 baby aspirins per via EMS today. Patient's H&H is 10.7 and 34.4. His creatinine is 1.5 with a previous reading of 1.8. All 3 troponins have been negative. The patient stated that he recently had COVID and has had a cough since COVID. The patient stated that he had been on metoprolol but was taken off because of his cough. Patient's heart rate was in the 90s with the sinus rhythm incomplete right bundle-branch block.The patient is being admitted to observation status on the date of service of 08/08/2022. Review of Systems Review of Systems: See HPI All systems reviewed & are unremarkable except as noted in HPI and below Constitutional: Constitutional: Reports as per HPI and Reports no additional constitutional complaints Eyes: Eyes: Reports as per HPI and Reports no additional eye complaints ENT: Reports system reviewed and no additional complaints, except as documented and Reports Normal hearing present Cardiovascular: Cardiovascular: Reports no additional cardiovascular complaints Respiratory: Respiratory: Reports no additional respiratory complaints and Reports no additional respiratory complaints Gastrointestinal: Gastrointestinal: Reports as per HPI and Reports no additional gastrointestinal complaints Musculoskeletal: Musculoskeletal: Reports no additional musculoskeletal complaints Integumentary/Breasts: Skin/Breast: Reports system reviewed and no additional complaints, except as docu and Reports as per HPI Neurologic: Reports system reviewed and no additional complaints, except as documented, Reports as per HPI and Reports Normal hearing present Psychiatric: Psychiatric: Reports no additional psychiatric complaints and Reports as per HPI Endocrine: Endocrine: Reports no additional endocrine complaints Hematologic/Lymphatic: Hematologic/Lymphatic: Reports no additional hematologic/lymphatic complaints Allergic/Immunologic: Allergic/Immunologic: Reports no additional allergic/immunologic complaints [facility] Past Medical History Medical History (Updated 08/08/22 @ 22:56 by Josefina Wu NP) Alternating constipation and diarrhea Arthritis Bloating CAD (coronary artery disease) Chronic pain syndrome Chronic renal disease, stage 3, moderately decreased glomerular filtration rate (GFR) between 30-59 mL/min/1.73 square meter Colon cancer screening Diabetes GERD (gastroesophageal reflux disease) Hemorrhage following tonsillectomy and adenoidectomy Hyperlipidemia Hypertension Irritable bowel syndrome with diarrhea Myocardial infarction Psoriasis Psoriatic arthritis Surgical History Surgical History (Updated 08/08/22 @ 22:41 by Josefina Wu NP) History of eyelid surgery History of foot surgery Hx of cholecystectomy S/P CABG x 3 Stented coronary artery Family History Family History (Reviewed 08/08/22 @ 22:43 by Josefina Cortez
[2022-08-09] VITALS (8 sets, daily range): BP systolic 124–144; BP diastolic 66–75; PULSE 62–88; RESP 16–70; TEMP 36.1–37; O2SAT 97–100
[2022-08-09] MEDS: METOPROLOL TARTRATE 50 MG TAB PO ×2 (01:45→08:50)
[2022-08-09] MEDS: PANTOPRAZOLE SODIUM IV 40 MG VIAL IV PUSH ×2 (01:45→08:51)
[2022-08-09] MEDS: FENOFIBRATE,MICRONIZED 48 MG TABLET PO (01:45)
[2022-08-09 05:18] LABS: Basophils Absolute Auto 0.1 K/mm3 (0.0-0.1); Eosinophils Absolute Auto 0.3 K/mm3 (0-0.3); Eosinophils Percent Auto 5.4 % (0-4.4); Hematocrit 32.6 % (42.0-52.0); Hemoglobin 10.2 g/dL (14.0-18.0); Immature Granulocyte Absolute 0.02 K/mm3 (0.00-0.031); Immature Granulocyte Percent A 0.3 % (0-0.5); Lymphocytes Absolute Auto 2.64 K/mm3 (0.9-3.2); Lymphocytes Percent Auto 43.4 % (18.3-44.2); Mean Corpuscular HGB Conc 31.3 g/dl (32-36); Mean Corpuscular Volume 79.9 fl (80-100); Mean Platelet Volume 10.2 fl (7.4-10.4); Monocytes Absolute Auto 0.6 K/mm3 (0.1-0.6); Neutrophils Absolute Auto 2.4 K/mm3 (1.3-6.7); Neutrophils Percent Auto 39.9 % (45.5-73.1); Platelet Count Result 248 k/mm3 (150-375); Red Blood Count 4.08 M/mm3 (4.6-6.20); Red Cell Distribution Width 14.7 % (11.5-14.5); White Blood Count 6.1 K/mm3 (4.5-10.0)
[2022-08-09 05:34] LABS: Alanine Aminotransferase 36 U/L (6-50); Albumin Level 4.4 g/dL (3.5-5.1); Alkaline Phosphatase 58 U/L (38-126); Anion Gap 13 mmol/L (8-16); Aspartate Amino Transferase 39 U/L (17-59); Bilirubin,Total 0.4 mg/dL (0.2-1.3); Blood Urea Nitrogen 18 mg/dL (9-20); Calcium 8.9 mg/dL (8.4-10.2); Carbon Dioxide 24 mmol/L (22-30); Chloride 103 mmol/L (98-107); Estimated CRCL calculation 50 ml/min; Estimated Glomerular Filt Rate 48; Glucose 115 mg/dL (65-110); Lipase 78 U/L (23-300); Magnesium 1.4 mg/dL (1.6-2.3); Phosphorus 4.3 mg/dL (2.5-4.5); Potassium 4.1 mmol/L (3.4-5.0); Sodium 140 mmol/L (137-145)
[2022-08-09 05:49] LABS: Hemoglobin A1C 7.1 % (<5.7)
--- NOTE | 2022-08-09 08:23 | PM.IMPN ---
Progress Note: A&P Assessment and Plan (1) Chest pain: Code(s): R07.9 - Chest pain, unspecified Status: Acute Assessment and Plan: -the patient has a history of coronary artery disease and he has had 1 stent in a 3 vessel CABG. The patient stated he has been faithful with his Plavix and aspirin. -An echo has been ordered the patient stated he thought he had in echo approximately 3 months ago but I do not see any in the system. - Restarted his metoprolol since he initially had some tachycardia and was feeling palpitations. -continue with his rosuvastatin -all 3 cardiac enzymes have been negative. 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 -Continue with heart healthy diet. (2) CAD (coronary artery disease): Code(s): I25.10 - Atherosclerotic heart disease of [place] coronary artery without angina pectoris Status: Acute Assessment and Plan: - continue with heart healthy diet - the patient has a history of having 1 Cardiac stent and 3 vessel CABG - continue with aspirin and Plavix -restart metoprolol -continue with fenofibrate and Crestor (3) Diabetes: Code(s): E11.9 - Type 2 diabetes mellitus without complications Status: Acute Assessment and Plan: -hold metformin for tonight. The patient does have chronic renal failure may consider alternative. -Accu-Cheks AC and HS with sliding scale insulin. - A1c is 7.1 - Trulicity is weekly and I believe it is non formulary. The patient may bring his from home. (4) Hyperlipidemia: Code(s): E78.5 - Hyperlipidemia, unspecified Status: Acute Assessment and Plan: -Continue with Crestor and fenofibrate the patient is on Vascepa which may be non formulary and he may need to bring his from home. (5) Hypertension: Code(s): I10 - Essential (primary) hypertension Status: Acute Assessment and Plan: -continue with amlodipine -losartan with hydrochlorothiazide -metoprolol (6) Psoriatic arthritis: Code(s): L40.50 - Arthropathic psoriasis, unspecified Status: Acute Assessment and Plan: Cimzia is non formulary. The patient may bring his own from home (7) GERD (gastroesophageal reflux disease): Qualifiers: Esophagitis presence: esophagitis presence not specified Qualified Code(s): K21.9 - Gastro-esophageal reflux disease without esophagitis Code(s): K21.9 - Gastro-esophageal reflux disease without esophagitis Status: Acute Assessment and Plan: - IV per time (8) Chronic renal disease, stage 3, moderately decreased glomerular filtration rate (GFR) between 30-59 mL/min/1.73 square meter: Code(s): N18.30 - Chronic kidney disease, stage 3 unspecified Status: Acute Assessment and Plan: stage III. Creatinine stable and at baseline Plan Hypo magnesemia replace Subjective Date/time seen: 08/09/22 08:23 Interval history: this is a 61-year-old male patient who has a history of coronary artery disease with 1 stent [address] bypass approximately 1 year ago.? He also has a history of hypertension, hyperlipidemia and diabetes.? The patient was having palpitations and chest pain.? He woke up this morning around 6:00 a.m. and noticed his heart racing.? He also had some chest pressure as well as intermittent shortness of breath and diaphoresis.? The pain worsened with movement and then calmed down once he sat down for an extended period time.? His pulse and breathing would improve after he rested for quite a bit.? He stated that his heart rate got up to 120s.? The patient has had some chest pressure in the past after his CABG but it did not last this long.? He denies any fever or chills.? No lightheadedness.? No cough for fever chills.? No nausea vomiting or diarrhea.? The patient stated he believes he had a echo the last 3 months.? He has been compliant with his aspirin and Plavix.? He received 4 ba
[2022-08-09 08:26] LABS: Glucose Point of Care 179 mg/dl (65-105)
[2022-08-09] MEDS: amLODIPine BESYLATE 5 MG TABLET 10 MG PO (08:50)
[2022-08-09] MEDS: ROSUVASTATIN 10 MG TABLET 40 MG BY MOUTH (08:50)
[2022-08-09] MEDS: CLOPIDOGREL BISULFATE 75 MG TABLET PO (08:50)
[2022-08-09] MEDS: CHOLECALCIFEROL 1,000 UNITS TABLET 1000 UNITS PO (08:50)
[2022-08-09] MEDS: LOSARTAN POTASSIUM 100 MG TABLET PO (08:50)
[2022-08-09] MEDS: hydroCHLOROthiazide 12.5 MG CAPSULE PO (08:50)
[2022-08-09] MEDS: ASPIRIN 81 MG ENTERIC TABLET PO (08:51)
[2022-08-09] MEDS: ENOXAPARIN 40 MG/0.4 ML SYRINGE SUB-Q (08:51)
[2022-08-09] MEDS: MAGNESIUM SULF 1 GM/D5W 100 ML 1 GM/100 ML BAG IVPB (09:30)
--- NOTE | 2022-08-09 10:51 | PM.CNCAR ---
Assessment and Plan Assessment and plan (1) Chest pain: Code(s): R07.9 - Chest pain, unspecified Status: Acute Plan This is a 61-year-old man with multivessel coronary disease who underwent surgical revascularization a year ago as described in my note. He has not had any anginal-type chest pain since revascularization. He has noticed some coughing and some occasional palpitations after promise coronavirus in the early part of this calendar year. There was an attempt this week to remove his beta-alma to see if that was contributing to his symptoms. He came to the hospital yesterday it sounds like feeling worse off of the metoprolol. I would recommend resuming the medication and the hospitalist team has already done that. There is no evidence of acute coronary syndrome his a biomarkers showed no signs of ACS and at this point I do not have additional cardiac reasons he needs to remain in the hospital. I will make my partner aware that he was admitted overnight for observation and we will arrange appropriate follow-up in our office. He did have a favorable echocardiogram as recently as May of this year. I do not feel strongly that he needs another 1 in the hospital at this time it looks that way like 1 has been ordered by the hospitalist team Rc Pham MD [facility] History of Present Illness History of Present Illness Consult date/time: 08/09/22 10:51 Consult reason: chest pain Reason For Visit: Chest Pain Narrative: This is a pleasant 61-year-old man I am seeing at the request of the hospitalist after he was admitted yesterday following experiencing some palpitations and chest pain while he was at his home. The patient has a known history of coronary artery disease, hyperlipidemia and psoriatic arthritis. He follows in our office actively with my partner, Dr. Berman. He was in his usual state of fairly good health when he has been noticing problems with occasional coughing and some occasional palpitations beginning in the early part of this year after he was infected with coronavirus. He had a relatively mild illness with his COVID but has been not feeling well since then. He saw my partner in the office on Friday and there was some discussion about the coughing and whether his beta-alma might be associated with this. The patient consulted with his PCP and his metoprolol was discontinued on Friday. Yesterday he came to the hospital after feeling a bit worse with the sense of palpitations he stated he noticed his heart rate which typically is in the about 70 beats per minute was in the range of 90-110 and was somewhat variable. He became concerned and came to the emergency room. In the emergency room his ECG shows sinus rhythm with an incomplete right bundle branch block and some mild nonspecific ST segment changes. He had 3 sets of troponin levels done which are normal. He is comfortable this morning and denies any active complaints. The patient has a known history of coronary artery disease and underwent stenting of a distal obtuse marginal branch of his circumflex a long time ago in the setting of an acute MS. He I he was reporting symptoms of exertional angina last year underwent a follow-up angiogram here at [facility] demonstrating significant proximal LAD disease as well as stenosis in the mid circumflex and left PDA. He underwent coronary bypass grafting in May of 2021 at [facility] receiving an ROSALIE graft to the LAD, a vein graft to the diagonal and a vein graft to the left PDA. He did well following his operation and was once again seen in the office just as recently as Friday of this week. The remainder of his cardiac medical regimen consists of aspirin, clopidogrel, amlodipine, losartan with hydrochlorothiazide and rosuvastatin. Review of Systems Constitutional: Constitutional: Reports no additional constitutional complaints Eyes: Eyes: Reports no additional eye complaints ENT: R
--- NOTE | 2022-08-09 11:35 | PM.DS ---
DS: Admitting Diagnosis Discharge Date 08/09/2022 Admitting Diagnosis palpitations DS: Discharge Diagnosis Discharge Diagnosis (1) Chest pain: Code(s): R07.9 - Chest pain, unspecified Status: Acute (2) CAD (coronary artery disease): Code(s): I25.10 - Atherosclerotic heart disease of [place] coronary artery without angina pectoris Status: Acute (3) Diabetes: Code(s): E11.9 - Type 2 diabetes mellitus without complications Status: Acute (4) Hyperlipidemia: Code(s): E78.5 - Hyperlipidemia, unspecified Status: Acute (5) Hypertension: Code(s): I10 - Essential (primary) hypertension Status: Acute (6) Psoriatic arthritis: Code(s): L40.50 - Arthropathic psoriasis, unspecified Status: Acute (7) GERD (gastroesophageal reflux disease): Qualifiers: Esophagitis presence: esophagitis presence not specified Qualified Code(s): K21.9 - Gastro-esophageal reflux disease without esophagitis Code(s): K21.9 - Gastro-esophageal reflux disease without esophagitis Status: Acute (8) Chronic renal disease, stage 3, moderately decreased glomerular filtration rate (GFR) between 30-59 mL/min/1.73 square meter: Code(s): N18.30 - Chronic kidney disease, stage 3 unspecified Status: Acute DS: Summary Hospital Course Hospital Course: # Chest pain: atypical ?-the patient has a history of coronary artery disease and he has had 1 stent in a 3 vessel CABG.? The patient stated he has been faithful with his Plavix and aspirin. -An echo has been ordered the patient stated he thought he had? in echo approximately 3 months ago Which was unremarkable per Cardiology note. - He has been recently taken off metoprolol due to his chronic cough. Since he has been on he has been having tachycardia palpitations. No arrhythmias were noted on telemetry review His all 3 cardiac enzymes is negative. He was restarted back on his metoprolol which is resolved his symptoms. Will continue to follow-up with his PCP with regard to his chronic cough management. CTA was done which ruled out PE but does show mild emphysema.? # coronary artery disease status post three-vessel CABG and cardiac stent: - continue with aspirin and Plavix -restart metoprolol -continue with fenofibrate and Crestor # diabetes mellitus type 2: ? Continue home medication at discharge - A1c is 7.1 # hyperlipidemia: ? -Continue with Crestor and fenofibrate ?the patient is on Vascepa which may be non formulary and he may need to bring his from home. # Hypertension: ?-continue with amlodipine -losartan with hydrochlorothiazide -metoprolol # psoriatic arthritis: ?? Cimzia is non formulary.? The patient may bring his own from home # GERD: Home medication # chronic kidney disease stage 3 ?stage III.? Creatinine stable and at baseline # Hypo magnesemia replace Time Spent with Patient Time attestation: Total time spent providing and/or coordinating discharge services: 40 minutes Exam Narrative: GENERAL: Well-appearing, well-nourished, and in no acute distress. HEAD: Normocephalic, atraumatic. EYES: PERRLA and EOMI. ENT: Nares clear, no rhinorrhea or epistaxis.? Mucous membranes moist. NECK: Supple. CHEST: Clear to auscultation.? No respiratory distress.? Well-healed midsternal incision HEART: Regular rate and rhythm.? No murmur heard.? Normal peripheral pulses in all 4 extremities ABDOMEN: Soft, nontender, nondistended, normal active bowel sounds. EXTREMITIES: Normal range of motion.? No edema. SKIN: Warm, dry, no rash. NEURO: No focal deficits.? Alert and oriented x3. PSYCH: Normal mood and affect. DS: Data Data Completed and Pending Labs on day of discharge: Labs from last 24 hours 08/09/22 08/09/22 08/09/22 08:23 04:57 04:57 WBC RBC Hgb Hct MCV MCH MCHC RDW Plt Count MPV Immature Gran % (Auto) Neut % (Auto) Lymph % (
[2022-08-09 11:46] LABS: Glucose Point of Care 174 mg/dl (65-105)
== END 2022-08-09 12:15 | disposition home or self-care (01) ==
LOC: ANHED 13:01 → ANHIMU 17:05
PROVIDERS: Emergency Medicine; Nurse Practitioner; Admitting Provider Family Medicine; Emergency Provider Emergency Medicine; PCP Family Medicine Sports Medicine; Visit Provider Internal Medicine
DX: R07.9 Chest pain, unspecified (principal); I25.10 Atherosclerotic heart disease of native coronary artery without angina pectoris; Z95.1 Presence of aortocoronary bypass graft; Z95.5 Presence of coronary angioplasty implant and graft; E78.5 Hyperlipidemia, unspecified; I12.9 Hypertensive chronic kidney disease with stage 1 through stage 4 chronic kidney disease, or unspecified chronic kidney disease; E11.22 Type 2 diabetes mellitus with diabetic chronic kidney disease; N18.30 Chronic kidney disease, stage 3 unspecified; L40.50 Arthropathic psoriasis, unspecified; K21.9 Gastro-esophageal reflux disease without esophagitis; R00.2 Palpitations; R06.02 Shortness of breath; Z86.16 Personal history of COVID-19; G89.4 Chronic pain syndrome; K58.0 Irritable bowel syndrome with diarrhea; I45.10 Unspecified right bundle-branch block; I25.2 Old myocardial infarction; Z87.891 Personal history of nicotine dependence; Z79.82 Long term (current) use of aspirin; Z79.02 Long term (current) use of antithrombotics/antiplatelets; Z79.84 Long term (current) use of oral hypoglycemic drugs; Z79.899 Other long term (current) drug therapy; Z82.49 Family history of ischemic heart disease and other diseases of the circulatory system; Z83.3 Family history of diabetes mellitus
CPT/HCPCS: 36415; 71046; 71275; 80053; 82948; 83036; 83690; 83735; 84100; 84443; 84484; 85025; 85610; 85730; 93005; 96372; 96374; 96375; 96376; 99285; A9270; C9113; G0378; J1650; J3475; Q9967

== ENCOUNTER 2025-04-28 09:48 | Outpatient (CLI) | payer BC, SELFPAY ==
--- NOTE | ~2025-04-28 | US_ITS ---
US right upper quadrant INDICATION: Elevated liver enzymes PROCEDURE: Realtime right upper abdominal ultrasound. COMPARISON: No prior studies for comparison. FINDINGS: The pancreas is normal without focal mass or pancreatic ductal dilation. Liver echotexture is increased, consistent with fatty infiltration. There is normal directional flow in the portal ve in. Gallbladder is surgically absent. Common bile duct measures 4 mm. No sonographic Au's sign. IMPRESSION: 1: Fatty infiltration of the liver. Reviewed, dictated and finalized at location A.
== END 2025-04-28 09:49 | disposition home or self-care (01) ==
LOC: MICIMG 09:50
PROVIDERS: PCP Internal Medicine; Visit Provider Internal Medicine
DX: K76.0 Fatty (change of) liver, not elsewhere classified (principal); R74.8 Abnormal levels of other serum enzymes
CPT/HCPCS: 76705

== ENCOUNTER 2025-07-08 09:18 | Inpatient (IN) | payer BC, SELFPAY ==
--- OUTSIDE RECORDS SUMMARY | 2024-06-24 11:23 | XMS_ITS | Continuity of Care Document ---
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 Role Phone Mane WRIGHT, Amber Unavailable Unavailable Medications Medication Instructions Dosage Effective Dates (start - stop) Status Comments Remicade 100 mg intravenous solution infuse (5MG/KG) by intravenous route every 6 weeks over 5 MG/KG - Active metformin 1,000 mg tablet take 1 tablet by oral route 2 times every day with morning and evening meals 1000 MG - Active FENOFIBRATE (unknown strength) take 1 capsule by oral route every day with a meal Not Available - Active metoprolol tartrate 50 mg tablet take 1 tablet by oral route 2 times every day with meals 50 MG - Active meloxicam 7.5 mg tablet take 1 tablet by oral route every day 7.5 MG - Active atorvastatin 40 mg tablet take 1 tablet by oral route every day 40 MG - Active clopidogrel 75 mg tablet take 1 tablet by oral route every day 75 MG - Active clopidogrel 75 mg tablet take 1 tablet by oral route every day 75 MG - Active FLUOCINONIDE (unknown strength) apply by topical route 2 times every day to the affected area(s) Not Available - Active NITROMIST (unknown strength) place 1 spray by translingual route onto or under the tongue at the first sign of an attack; no more than3 sprays/15 minute period as needed Not Available - Active Procedures Procedure Date COLONOSCOPY AND BIOPSY Advance Directives Directive Yes / No Effective Date File Name No Information Encounters Encounter Description Practice Location Reason(s) For Visit Diagnoses Date Provider Providers Copied on Encounter [facility], [address], [place], [place], [id number], tel:[phone] [facility] No Information Mane Marcdul. [facility], [address], [id number], . tel:[phone] [facility] [employer], [address], [place], [place], [id number], tel:[phone] [facility] No Information Mane Satoñodul. [address] [facility], [address], [id number], . tel:[phone] Referring Provider: Jimbo Pinzon, [facility], [place], [address]. tel:[phone] [facility] [employer], [address], [place], [place], [id number], tel:[phone] [facility] No Information Mane Marcdul. [address] [place] [address], [address], [id number], . tel:[phone] Family History Family Member Type Diagnosis Age At Onset No Information Payers Payer name Insurance type Covered libertarian ID Authorbrendaa jorge(s) [facility] ACCESS BL [id number] Social History Type Description Quantity Date Captured Comments Sex Male Smoking Status No Information Sexual Orientation Straight or heterosexual Gender Identity Male Chief Complaint And Reason For Visit No Information Reason For Referral Reason For Referral No Information History Of Present Illness Encounter Date Complaint History Of Prese nt Illness No Information Functional Status Date Functional Assessmen t No Information Instructions Date Instruction Additional Infor mation No Information Assessments Type Assessment Date No Information Patient Care Teams Name Effective Dates (start - stop) Status Members No Information
[2025-07-08] VITALS (12 sets, daily range): BP systolic 119–173; BP diastolic 44–70; PULSE 59–82; RESP 14–19; TEMP 36.5–36.8; O2SAT 97–100; BMI 30.2; BMI 30.3
--- NOTE | ~2025-07-08 | US_ITS ---
EXAMINATION: US renal BI, 07/09/2025 12:02 CDT HISTORY: Chronic renal failure Comparison: None Technique: Hart-scale and color Doppler images were obtained. Findings: KIDNEYS: Renal cortices intact, no solid masses, cysts or calculi, no hydronephrosis. Right Kidney: Right kidney 8.5 x 5.8 x 5.5 cm. Left Kidney: Left kidney 11.1 x 6 x 5.4 cm. Bladder: The bladder is unremarkable. . Impression: No acute abnormality. Reviewed, dictated and finalized at location P. Impression: No acute abnormality.
--- NOTE | ~2025-07-08 | XR_ITS ---
EXAMINATION: XR chest 2V, 07/08/2025 9:42 CDT HISTORY: chest pain, hx of heart attack in 2013, hx of cardiac bypass COMPARISON: No comparisons available. Technique: 2 views obtained. Findings: The lungs are clear, no effusion. No pneumothorax. Heart is normal size. Mediastinal and hilar contours are within normal limits. Bony thorax no acute abnormality. Impression: No acute cardiopulmonary abnormality. Reviewed, dictated and finalized at location P. Impression: No acute cardiopulmonary abnormality.
--- NOTE | 2025-07-08 09:19 | ECG_ITS ---
Test Date: 2025-07-08 09:26:01 Measurements Intervals Leupp Rate: 63 P: 35 LA: 152 QRS: -45 QRSD: 101 T: 76 QT: 352 QTc: 361 Interpretive Statements SINUS RHYTHM INCOMPLETE RIGHT BUNDLE BRANCH BLOCK LEFT ANTERIOR FASCICULAR BLOCK POSSIBLE ANTERIOR MYOCARDIAL INFARCTION , OF INDETERMINATE AGE BORDERLINE ST-T WAVE ABNORMALITY- ANT/HIGH LAT LEADS BASELINE ARTIFACT- I, II, III, AVR, AVL, AVF ABNORMAL ECG No previous ECG available for comparison Electronically Signed On 07-08-2025 09:47:41 CDT by Per Hernandez D.O.
--- OUTSIDE RECORDS SUMMARY | 2025-07-08 09:25 | XMS_ITS | Clinical Summary ---
Author Organization [facility] Address [address] [place] [address] Phone Care Team Providers Care Resaw Tailer Name Role Phone Les Jennings MD Primary Care Provider [phone] Allergies Active Allergy Reactions Criticality Noted Date Comments Lisinopril Cough 06/01/2020 Medications amLODIPine (NORVASC) 10 MG tablet 0 Active atorvastatin (LIPITOR) 40 MG tablet TK 1 T PO QD 0 Active azelastine (OPTIVAR) 0.05 % ophthalmic solution INT 1 GTT IN OD BID 0 Active Clobetasol Propionate 0.05 % external spray 0 Active clotrimazole (LOTRIMIN) 1 % cream BHUMI EXT AA BID 0 Active TRULICITY 0.75 MG/0.5ML solution pen-injector INJ 0.75 MG SC ONCE A WK 0 Active famotidine (PEPCID) 20 MG tablet TK 1 T PO BID 0 Active fenofibrate (TRICOR) 48 MG tablet TK 1 T PO D 0 Active Fluocinonide 0.1 % cream 0 Active hyoscyamine (ANASPAZ,LEVSIN) 0.125 MG tablet TK 1 T PO QID PRF UPSET STOMACH 0 Active losartan-hydroCHLO ROthiazide (HYZAAR) 100-12.5 MG per tablet TK 1 T PO QD 0 Active metFORMIN XR (GLUCOPHATE-XR) 500 MG 24 hr tablet TK 2 TS PO BID 08/05/202 0 Active metoprolol tartrate (LOPRESSOR) 50 MG tablet TK 1 T PO BID 0 Active ondansetron ODT (ZOFRAN-ODT) 4 MG dispersible tablet DIS 1 T ON THE TONGUE Q 6 H PRF NAUSEA OR VOM 0 Active aspirin EC 81 MG EC tablet Take 81 mg by mouth daily Active Calcium Polycarbophil (FIBER) 625 MG tablet 625 mg 6 Active certolizumab pegol (Cimzia Prefilled) 2 X 200 MG/ML kit inj Inject 400 mg under the skin 9 Active Magnesium 200 MG tablet 200 mg Active meloxicam (MOBIC) 7.5 MG tablet Take 7.5 mg by mouth daily Active nitroglycerin (NITROSTAT) 0.4 MG SL tablet 0.4 mg 6 Active omeprazole (PriLOSEC) [address] capsule Take 10 mg by mouth daily Active Saline 0.9 % aerosol solution 0.9 % 6 Active Active Problems Problem Noted Date Diagnosed Date Low back pain 01/02/2021 Entropion of right lower eyelid 05/31/2020 Overview (06/01/2020): Added automatically from request for surgery [id number] Diabetic dyslipidemia associ ated with type 2 diabetes mellitus 10/31/2017 Dyspnea on exertion 10/31/2017 Tobacco use and exposure - finding 10/31/2017 Atypical chest pain 09/04/2016 Overview (06/01/2020): Atypical chest pain Aneurysm of heart 03/09/2013 Diabetes mellitus Chronic kidney disease Hypertension Gastroesophageal reflux disease Hyperlipidemia Psoriasis Psoriatic arthritis Renal mass Family History Medical History Relation Comments Diabetes mellitus Father Diabetes mellitus Mother Heart failure Mother Hypertension Mother Relation Status Comments Father Mother Social History Tobacco Use Types Packs/Day Years Used Date Smoking Tobacco: Former Cigarettes Q uit: 2012 Smokeless Tobacco: Never Alcohol Use Standard Drinks/Week Comments Yes 0 (1 standard drink = 0.6 oz pur e alcohol) Sex and Gender Information Value Date Recorded Sex Assigned at Not on file Legal Sex Male 12:32 PM MDT Gender Identity Not on file Sexual Orientation Not on file Last Filed Vital Signs Vital Sign Reading Time Taken Comments Blood Pressure 132/72 01/02/2021 2:18 PM CDT Pulse - - Temperature 36.4 C (97.6 F) 01/02/2021 2:18 PM CDT Respiratory Rate 18 01/02/2021 2:18 PM CDT Oxygen Saturation - - Inhaled Oxygen Concentration - - Weight 94.8 kg (209 lb) 01/02/2021 2:18 PM CDT Height 180.3 cm (5' 11) 01/02/2021 2:18 PM CDT Body Mass Index 29.15 01/02/2021 2:18 PM CDT Plan of Treatment Health Maintenance Due Date Last Done Comments Influenza Vaccine (#1) 2025 Insurance Care Teams Resaw Tailer Relationship Specialty Start Date End Date Les Jennings MD PCP - General Family Medicine 05/25/20
--- OUTSIDE RECORDS SUMMARY | 2025-07-08 09:25 | XMS_ITS | Patient Health Record ---
Author Organization [employer] [facility] Address 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 Name Role Phone Jimbo Pinzon Primary Care Provider Katie Gar Unavailable [phone] DICK ALMAZAN Unavailable Unavailable REASON FOR REFERRAL No Information MEDICATIONS Medication SIG (Take, Route, Fr equency, Duration) Notes Start Date End Date Status Remicade 100 mg 0 intravenously every 8 weeks Active clopidogrel 75 mg 1 tab(s) orally once a day Active fenofibrate 48 mg 1 tab(s) orally once a day Active metoprolol 50 mg 1 tab(s) orally once a day Active atorvastatin 40 mg 1 tab(s) orally once a day (at bedtime) Active metFORMIN 1000 mg 1 tab(s) orally 2 times a day Active aspirin 81 mg 1 tab(s) orally once a day Active lisinopril 20 mg 1 tab(s) orally once a day Active Tramadol 50 mg 1 tablet orally tid prn for 30 day 06/02/2015 Not-Taking SOCIAL HISTORY Tobacco Use: Social History Observation Description Date Details (start date - stop date) Current Smoker NA - NA Sex Assigned At : Social History Observation Description Sex Assigned At Unknown Tobacco Use: Question Answer Notes Smoking Status current smoker PROBLEMS Problem Type ICD Code Onset Dates Problem Status W/U Status Risk SNOMED Code Notes Problem Psoriatic Arthritis (696.0) Active confirmed Psoriatic arthritis (294648973) Problem Low back pain (724.2) Active confirmed Low back pain (838252812) Problem MONITOR MED (V58.69) Active confirmed Long-term drug therapy (361862245) Problem Psoriatic arthritis (L40.50) Active confirmed 72908519 Problem Other skilled nursing (current) drug therapy (Z79.899) Active confirmed [id number] PLAN OF TREATMENT Pending Test Test Name Order Date X ray : Hand, left 05/26/2015 X ray : Hand, right 05/26/2015 Insurance Providers Payer Name Payer Address Payer Phone Subscriber Number Group Number Insured Name Patient Relationship to Insured Coverage Start Date Coverage End Date [facility] [address] [address] [place] [address] [id number] Alberto Schroeder Self - patient is the insured 1 MEDICAL (GENERAL) HISTORY Medical History History ICD Code bruises easily migraine headache Ringing in ears sinus problems diabetes high blood pressure pneumonia heart attack measles Surgical History Surgery Date(Month/Year) Stent 2012 femoral artery repair 2012 cervical fusion 2008 bone spurr 2004
--- OUTSIDE RECORDS SUMMARY | 2025-07-08 09:25 | XMS_ITS | Clinical Summary ---
Author Organization [facility] Address [address] [place] [address] Care Team Providers Care Staff Trainer Name Role Phone Unavailable Primary Care Provider Unavailabl e Source Comments [facility],non-owned Affiliates and Associated Physician Practices is amultiple site organization consisting of ambulatory clinics and hospital sitesin [place], [place], [place] and [place]. This disclosure is being madepursuant to the Care Everywhere program and may not contain all information available regarding this patient. Last updated 18.[facility] Allergies Active Allergy Reactions Criticality Noted Date Comments Lisinopril Cough Low 06/01/2020 Medications * Be aware that medications may not be up to date on this document. Alwaysverify current medications with the patient. metoprolol tartrate IR (LOPRESSOR) 25 MG tablet Take 1 (one) tablet by mouth 2 times daily Active aspirin EC (ECOTRIN) 81 MG tablet Take 1 (one) tablet by mouth once daily Active fenofibrate (TRICOR) 48 MG tablet Take 1 (one) tablet by mouth once daily Active clopidogrel (plaVIX) 75 MG tablet 1 tab(s) Active amLODIPine (Norvasc) 10 MG tablet 08/06/20 22 Active Trulicity 0.75 MG/0.5ML injection INJECT 0.75 MG SUBCUTANEOUSLY ONCE A WEEK 09/03/20 22 Active certolizumab pegol (Cimzia) injectionIndica tions:Other psoriasis Inject 400 (four hundred) mg subcutaneously every 14 days 1 kit 5 10/09/19 23 Active ISOSORBIDE MONONITRATE ER PO Take 30 mg by mouth once daily Active metoprolol tartrate IR (Lopressor) 50 MG tablet Take 1 (one) tablet by mouth 2 times daily 01/03/20 23 Active rosuvastatin (Crestor) 40 MG tablet Take 1 (one) tablet by mouth once daily 01/21/20 23 Active metFORMIN ER 24hr (Glucophage XR) 500 MG tablet Take 2 (two) tablets by mouth 2 times daily 12/17/19 23 Active losartan-hydroC HLOROthiazide (Hyzaar) 100-12.5 MG tablet Take 1 (one) tablet by mouth once daily 12/17/19 23 Active Fluocinonide 0.1 % APPLY CREAM TOPICALLY TWICE DAILY NEEDED TO THE AFFECTED AREA OF ARMS, LEGS AND TORSO DIRECTED 11/22/19 22 Active clobetasol (Temovate) 0.05 % creamIndication s:Other psoriasis APPLY CREAM TOPICALLY TO AFFECTED AREAS DAILY NEEDED TO CONTROL PSORIASIS 60 g 3 02/07/20 23 Active Active Problems No known active problems Social History Tobacco Use Types Packs/Day Years Used Date Smoking Tobacco: Former Cigarettes 1 - 07/28/2012 Tobacco Cessation:Counseling Given: No Alcohol Use Standard Drinks/Week Comments No 0 (1 standard drink = 0.6 oz pur e alcohol) Sex and Gender Information Value Date Recorded Sex Assigned at Not on file 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 Gender Identity Not on file Sexual Orientation Not on file Last Filed Vital Signs Vital Sign Reading Time Taken Comments Blood Pressure 156/85 08/07/2012 10:25 AM CDT Pulse 60 08/07/2012 10:25 AM CDT Temperature 37.1 C (98.7 F) 08/07/2012 10:25 AM CDT Respiratory Rate 16 08/07/2012 10:25 AM CDT Oxygen Saturation 100% 08/07/2012 10:25 AM CDT Inhaled Oxygen Concentration - - Weight 92 kg (202 lb 13.2 oz) 08/07/2012 7:02 AM CDT Height 180.3 cm (5' 11) 08/07/2012 7:02 AM CDT Body Mass Index 28.29 08/07/2012 7:02 AM CDT Plan of Treatment Health Maintenance Due Date Last Done Comments COLOGMATTY (AGES 45-75) - COLON CA SCREENING 1961 COLON MONITORING 1961 COLONOSCOPY - COLON CA SCREENING 1961 CT COLONOGRAPHY - COLON CA SCREENING 1961 Colorectal Cancer Screening 1961 FIT - COLON CA SCREENING 1961 FLEX SIG - COLON CA SCREENING 1961 HIV SCREENING 1976 HEPATITIS C SCREENING 08/14/1979 DTAP/TDAP/TD VACCINES (1 - Tdap) 1980 PNEUMOCOCCAL VACCINE 50+ (1 of 1 - PCV) 2011 ZOSTER VACCINE (1 of 2) 2011 Respiratory Syncytial Virus (RSV) Vaccine Pt: or over 60 yrs (1 - Risk 60-74 years 1-dose series) 2021 DEPRESSION SCREENING 10/06/2024 COVID-19 VACCINE (3 - season) 2025 12/05/2020, 11/14/2020 INFLUENZA VACCINE (#1) 2025 , 07/24/2020, 07/14/2015, Additional history exists HEPATITIS B VACCINE Aged Out No longe r eligible based on patient's age to complete this topic HIB VACCINE Aged Out No longer eligi ble based on patient's age to complete this topic HPV VACCINE Aged Out No longer eligi ble based on patient's age to complete this topic MENINGOCOCCAL (Group B) VACCINE SHARED DECISION-MAKING Aged Out No longer eligible based on patient's age to complete this topic MENINGOCOCCAL GROUPS A/C/Y/W VACCINE Aged Out No longer eligible based on patient's age to complete this topic Insurance [facility] Address: [facility] [id number] [place] [address]
--- OUTSIDE RECORDS SUMMARY | 2025-07-08 09:25 | XMS_ITS | Clinical Summary ---
Author Organization [facility] [address] Address [address] [place] [address] Care Team Providers Care Cloth Picker Name Role Phone Frantz Presley MD Unavailable [phone] Jose Simon MD Primary Care Provide r Allergies Active Allergy Reactions Criticality Noted Date Comments Lisinopril Cough Low 06/01/2020 Medications metFORMIN (GLUCOPHAGE) 1,000 mg tablet take 1 tablet by oral route 2 times every day with morning and evening meals 0 0 10/15/19 14 Active aspirin 81 mg enteric coated tabletIndications:My ocardial Reinfarction Prevention Take 1 tablet (81 mg total) by mouth daily before breakfast Active ergocalciferol, vitamin D2, (VITAMIN D2 ORAL) Take 1,000 Units by mouth daily Active metoprolol tartrate (LOPRESSOR) 50 mg immediate release tablet Take 1 tablet (50 mg total) by mouth 2 (two) times a day Active losartan-hydroCHLORO thiazide (HYZAAR) 100-12.5 mg per tablet Take 1 tablet by mouth daily Active omeprazole (PriLOSEC) 20 mg capsule Take 1 capsule (20 mg total) by mouth daily Active nitroglycerin (NITROSTAT) 0.[address] 1 tablet (0.4 mg total) under the tongue every 5 (five) minutes as needed for chest pain May repeat dose q 5 min, up to 3 doses total 25 tablet 3 07/15/20 23 025 Active clobetasoL (TEMOVATE) 0.05 % cream Apply 1 Application topically as needed 06/10/20 23 Active colchicine (COLCRYS) 0.6 mg tablet Take 1 tablet (0.6 mg total) by mouth daily 30 tablet 1 08/01/20 23 Active Skyrizi 150 mg/mL pen injector Every 12 weeks 12/01/19 24 Active cyclobenzaprine (FLEXERIL) 5 mg tablet Take 1 tablet (5 mg total) by mouth 2 (two) times a day as needed for muscle spasms 05/03/20 24 Active Mounjaro 2.5 mg/0.5 mL pen injector Inject 0.5 mL (2.5 mg total) under the skin once a week 08/12/20 24 Active amLODIPine (NORVASC) 10 mg tabletIndications:Co ronary artery disease of [place] artery of [place] heart with stable angina pectoris,Hypertensio n associated with diabetes (HCC) TAKE 1 TABLET BY MOUTH ONCE DAILY BEFORE BREAKFAST 90 tablet 3 08/19/20 24 Active rosuvastatin (CRESTOR) 40 mg tabletIndications:Co ronary artery disease of [place] artery of [place] heart with stable angina pectoris,Hyperlipide vivi associated with type 2 diabetes mellitus (HCC) Take 1 tablet by mouth once daily 90 tablet 1 10/18/19 25 Active fenofibrate nanocrystallized (TRICOR) 48 mg tablet Take 1 tablet (48 mg total) by mouth daily before breakfast 90 tablet 3 02/01/20 25 Active clopidogreL (PLAVIX) 75 mg tablet Take 1 tablet by mouth once daily 90 tablet 1 02/22/20 25 Active isosorbide mononitrate ER (IMDUR) 60 mg 24 hr tabletIndications:Co ronary artery disease of [place] artery of [place] heart with stable angina pectoris Take 1 tablet (60 mg total) by mouth daily 90 tablet 3 03/15/20 25 026 Active Active Problems Problem Noted Date Diagnosed Date Palpitations 03/15/2025 Coronary artery disease invo lving [place] coronary artery of [place] heart with unstable angina pectoris 07/29/2023 History of COVID-19 04/23/2022 Chronic renal impairment 07/04/2021 Entropion of right lower eyelid 05/31/2020 Overview (05/31/2020): Added automatically from request for surgery [id number] Dyslipidemia 12/03/2018 Coronary artery disease of n ative artery of [place] heart with stable angina pectoris 10/31/2017 Hyperlipidemia LDL goal <70 10/31/2017 Hyperlipidemia associated with type 2 diabetes m ellitus 10/31/2017 Essential hypertension 10/31/2017 Hypertension associated with diabetes 10/31/2017 History of tobacco abuse 10/31/2017 CONTRERAS (dyspnea on exertion) 10/31/2017 Type 2 diabetes mellitus 09/04/2016 Overview (01/10/2017): Type 2 diabetes mellitus with hyperlipidemia Chest tightness 09/04/2016 Overview (01/10/2017): Atypical chest pain Immunizations Immunization Administration Dates Next Due Pfizer SARS-CoV-2 Monovalent Vaccination (12+ Yrs) PURPLE 12/05/2020,11/14/2020 Surgical History Surgery Date Site/Laterality Comments CORONARY STENT PLACEMENT Coronary Stent Placement OTHER SURGICAL HISTORY Pseudo-aneurysm repair NECK SURGERY Neck surgery FOOT SURGERY Foot surgery CHOLECYSTECTOMY ENTROPION REPAIR 06/16/2020 Right Extensive lower eyelid entropion repair, right TONSILLECTOMY CORONARY ARTERY BYPASS GRAFT Medical History Medical History Date Comments Hx Other Medical Dyslipidemia Hx Other Medical Tobacco use Cardiovascular disease Coronary Artery Disease Myocardial infarction (HCC) Myoc ardial infarction Psoriasis Psoriasis Hx Other Medical Psoriatic arthr itis Coronary artery disease GERD (gastroesophageal reflux disease) Type 2 diabetes mellitus Psoriatic arthritis (HCC) Heart disease Hypertension CAD (coronary artery disease) CONTRERAS (dyspnea on exertion) Family History Medical History Relation Name Comments Heart attack Father Mario Myocardial Infa rction; Heart disease Father Mario Cataracts Mother Kelly Heart attack Mother Kelly Heart disease Mother Kelly Amblyopia Neg Hx Anesthesia problems Neg Hx Blindness Neg Hx Glaucoma Neg Hx Macular degeneration Neg Hx Retinal detachment Neg Hx Strabismus Neg Hx Relation Name Status Comments Father Mario Alive Mother Kelly Social History Tobacco Use Types Packs/Day Years Used Date Smoking Tobacco: Former Cigarettes 0.8 40.4 0 10/06/1978 - 09/30/2016 Smokeless Tobacco: Never Tobacco Cessation:Counseling Given: Not Answered Alcohol Use Standard Drinks/Week Comments Yes 0 (1 standard drink = 0.6 oz pur e alcohol) [facility] Utilities Answer Date Recorded In the past 12 months has th e electric, gas, oil, or water company threatened to shut off services in your home? No 07/29/2023 Social Connection and Isolation Panel Answer Date Recorded In a typical week, how many times do you talk on the phone with family, friends, or neighbors? More than three times a week 07/29/2023 How often do you get togethe r with friends or relatives? More than three times a week 07/29/2023 How often do you attend chur ch or congregation services? Never 07/29/2023 Do you belong to any clubs o r organizations such as religion groups, unions, fraternal or athletic groups, or school groups? No 07/29/2023 How often do you attend meet ings of the clubs or organizations you belong to? Never 07/29/2023 Are you , , di vorced, , never , or living with a partner? 07/29/2023 AUDIT-C Answer Date Recorded Q1: How often do you have a drink containing alc ohol? Never 05/18/2021 Average Number of Drinks Not on file 021 Frequency of Binge Drinking Not on file 05/06 Overall Financial Resource Strain (CARDIA) Answe r Date Recorded How hard is it for you to pa y for the very basics like food, housing, medical care, and heating? Not hard at all 07/29/2023 Hunger Vital Sign Answer Date Recorded Within the past 12 months, y ou worried that your food would run out before you got the money to buy more. Never true 07/29/20 23 Within the past 12 months, t he food you bought just didn't last and you didn't have money to get more. Never true 07/29/2023 PRAPARE - Transportation Answer Date Re corded In the past 12 months, has l ack of transportation kept you from medical appointments or from getting medications? No 07/07 In the past 12 months, has l ack of transportation kept you from meetings, work, or from getting things needed for daily living? No 07/29/2023 Housing Stability Vital Sign Answer Kem e Recorded In the last 12 months, was t here a time when you were not able to pay the mortgage or rent on time? No 07/29/2023 In the last 12 months, how many places have you lived? 1 07/29/2023 In the last 12 months, was t here a time when you did not have a steady place to sleep or slept in a senior living (including now)? No 07/29/2023 Personal Safety Answer Date Recorded Have you ever been in or are you currently in a harmful physical or emotional relationship or is someone making you feel afraid or unsafe? Denies 07/29/2023 Sex and Gender Information Value Date Recorded Sex Assigned at Not on file Legal Sex Male 9:27 AM [employer] PLATE [employer] Gender Identity Male 05/11/2021 11:00 AM CDT Sexual Orientation Not on file Obstetrics History Last Filed Vital Signs Vital Sign Reading Time Taken Comments Blood Pressure 132/80 03/15/2025 3:02 PM CDT Pulse 60 03/15/2025 3:02 PM CDT Temperature 36.6 C (97.9 F) 07/31/2023 12:15 PM CDT Respiratory Rate 16 05/04/2024 3:07 PM CDT Oxygen Saturation 99% 03/15/2025 3:02 PM CDT Inhaled Oxygen Concentration - - Weight 95.3 kg (210 lb) 03/15/2025 3:02 PM CDT Height 185.4 cm (6' 1) 03/15/2025 3:02 PM CDT Body Mass Index 27.71 03/15/2025 3:02 PM CDT Plan of Treatment Health Maintenance Due Date Last Done Comments Albumin Creatinine Ratio, Urine 1961 Colon Cancer Screening-Colonoscopy 1961 Depression Screening 1961 Hepatitis C Screening 1961 Prostate Cancer Screening-PSA 1961 Dilated Eye Exam 1961 Foot Exam 1961 Hepatitis B Screening 1979 Regular Well Visit/Exam 18-64 1979 Pneumococcal vaccine <65 (1 of 2 - PCV) 1980 Lung Cancer Screening 2011 Covid-19 Vaccine (3 - Pfizer risk series) 10/19/2021 09/21/2021, 12/05/2020, 11/14/2020 Hemoglobin A1C 11/22/2021 05/22/2021 eGFR 01/23/2025 01/24/2024, 07/07, 07/30/2023, Additional history exists Influenza Vaccine (#1) 2025 , 07/01/2023, 08/10/2022, Additional history exists Lipid Panel 03/15/2026 03/15/2025, /, 05/07/2023, Additional history exists DTaP/Tdap/Td Vaccine (2 - Td or Tdap) 08/05/2034 08/05/2024 Zoster Vaccine Completed 08/15/2023, 05/14/2023 Medical Devices Implanted Type Area Civil Preparedness Coordinator Device Identifier Shelf Expiration Date Model / Serial / Lot Medtronic [facility] Vasc Surgery 3.0 X 15mm [place] Economy Rx Coronary Stent [id number] - [id number] Implanted:Qty: 1 on 07/29/2023 by Mireille Ley MD at [facility] Medtronic [facility] Vas Surgery 03/25/2026 [id number] / / [id number] Medtronic [facility] Surgery 3.0 X 18mm [place] Economy Rx Coronary Stent [id number] - [id number] Implanted:Qty: 1 on 07/29/2023 [facility] Vas Surgery 12/07/2025 [id number] / / [id number] [employer] Pk Papyrus 3mm 15mm 140mm Delivery System Cover Nonwoven [id number] - [id number] Implanted:Qty: 1 on 07/29/2023 by Mireille Ley MD at [facility] [employer] 08/06/2024 [id number] / / [id number] [employer] Pk Papyrus 3mm 15mm 140mm Delivery System Cover Nonwoven [id number] - [id number] Implanted:Qty: 1 on 07/29/2023 by Mireille Ley MD at [facility] [employer] 01/22/2025 [id number] / / [id number] [employer] Pk Papyrus 2.5mm 15mm 140mm Delivery System Cover Nonwoven [id number] - [id number] Implanted:Qty: 1 on 07/29/2023 by Mireille Ley MD at [facility] Metaps 07/31/2024 [id number] / / [id number] The Gluten Free [employer] 2Peer ([employer]lipso) [facility] Device Vascular Closure Femoral Artery Bioabsorbable Dual Method Vascade 6-7fr Collagen [id number] - [id number] Implanted:Qty: 1 on 07/29/2023 by Mireille Ley MD at [facility] Lanyrd 01/13/2025 [id number] / / [id number] Procedures Procedure Name Priority Date/Time Associated Diagnosis Comments POCT LIPID PANEL Routine 03/15/2025 2:57 PM CDT Coronary artery disease of [place] artery of [place] heart with stable angina pectoris Hyperlipidemia associated with type 2 diabetes mellitus (HCC) COMPREHENSIVE METABOLIC PANEL Routine 01/24/2024 9:18 AM CDT Chest tightness Coronary artery disease of [place] artery of [place] heart with stable angina pectoris Pre-operative cardiovascular examination HEMOGLOBIN A1C Add-On 05/22/2021 8:15 AM CDT from Last 3 Months or Most Recently Relevant to Health Maintenance Results * (ABNORMAL) POCT lipid panel (03/15/2025 2:57 PM CDT) Cholesterol, POC 105 <200 MG/DL HDL, POC 31(A) >=40 mg/dL Triglycerides, POC 205(A) <=149 mg/dL LDL Cholesterol POC 33 <=129 mg/dL Chol/HDL Ratio, POC 3.4 NONE Non-HDL Cholesterol, POC 74 NONE mg/dL Cholesterol Total, POC 105 30 - 199 mg/dL Capillary blood 03/15/2025 2 :57 PM CDT us Gerard Berman MD POINT OF CARE TEST ORDERA BLES Final Result * (ABNORMAL) Comprehensive metabolic panel (01/24/2024 9:18 AM CDT) Glucose 134(H) 70 - 99 mg/dL [facility] - 01 BUN 23 8 - 27 mg/dL [facility] - 01 Creatinine, Serum 1.54(H) 0.76 - 1.27 mg/dL [facility] - 01 eGFR 51(L) >59 mL/min/1.7 3 [facility] - 01 BUN/creat ratio 15 10 - 24 [facility] - 01 Sodium 137 134 - 144 mmol/L [facility] - 01 Potassium, sr 4.8 3.5 - 5.2 mmol/L [facility] - 01 Chloride 100 96 - 106 mmol/L [facility] - 01 CO2 22 20 - 29 mmol/L [facility] - 01 Calcium 9.7 8.6 - 10.2 mg/dL [facility] - 01 Protein, sr 7.5 6.0 - 8.5 g/dL [facility] - 01 Albumin 4.7 3.9 - 4.9 g/dL [facility] - 01 Globulin, Total 2.8 1.5 - 4.5 g/dL [facility] - 01 A/G Ratio 1.7 1.2 - 2.2 [facility] - 01 Bilirubin, Total 0.3 0.0 - 1.2 mg/dL [facility] - 01 Alk phos 62 44 - 121 IU/L [facility] - 01 AST 45(H) 0 - 40 IU/L [facility] - 01 ALT 41 0 - 44 IU/L [facility] - 01 Blood 01/24/2024 9:18 AM CDT 01/24/2024 Narrative [facility] - 01/25/2024 7:07 AM CDT Performed at: - [facility] [id number] Corporate Relations Director: Roberto Gordon PhD, Phone: [phone] us Gerard Berman MD LAB BLOOD ORDERABLES [facility] Result [facility] - 01 * (ABNORMAL) Hemoglobin A1c (05/22/2021 8:15 AM CDT) Hgb A1C 6.5(H) 4.0 - 5.6 % [facility] Estimated Average Glucose 140 mg/dL [facility] Comment: The ADA recommends reporting an estimated Average Glucose (eAG) with all Hemoglobin A1c results using the equation derived from a study of 507 normal and diabetic adults. Minority populations were underrepresented and children were not included. (Diabetes Care 31:7976-6098, 2008). The eAG is not equivalent to a fasting glucose. 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
[2025-07-08] MEDS: ASPIRIN 81 MG CHEWABLE TABLET 324 MG PO (09:31)
--- NOTE | 2025-07-08 09:34 | ED.GENADULT ---
HPI - General Adult General Chief complaint: Chest Pain Stated complaint: chest pain Time Seen by Provider: 07/08/25 09:20 History of Present Illness HPI narrative: 64-year-old male with prior cardiac history presents to the emergency department for evaluation for chest pain that started last night. Patient states that about 230 he rolled over and had chest pain that radiate into his back jaw and left arm. Patient reports he does have prior history of [place] in 2012 a CABG and 2020 done at [facility] and then an additional 5 stents placed in 2022. Related Data Home Medications ?Medication ?Instructions ?Recorded ?Confirmed ?Last Taken ?Type amlodipine 10 mg tablet 10 mg PO DAILY 02/08/21 05/16/25 08/07/22 09:00 History aspirin 81 mg tablet,delayed 81 mg PO DAILY 02/08/21 05/16/25 08/07/22 09:00 History release fenofibrate 40 mg tablet 48 mg PO HS 02/08/21 05/16/25 08/07/22 21:00 History losartan 100 1 tablet PO DAILY 02/08/21 05/16/25 08/07/22 09:00 History mg-hydrochlorothiazide 12.5 mg tablet metoprolol tartrate 50 mg tablet 50 mg PO Q12H 02/08/21 05/16/25 08/05/22 09:00 History clopidogrel 75 mg tablet 75 mg PO DAILY 07/20/21 05/16/25 08/07/22 21:00 History metformin 500 mg tablet 1,000 mg PO BID 07/20/21 05/16/25 08/07/22 17:00 History ergocalciferol (vitamin D2) 1,000 1,000 unit PO DAILY 08/08/22 05/16/25 08/07/22 21:00 History unit capsule omeprazole 20 mg capsule,delayed 20 mg PO DAILY 08/08/22 05/16/25 08/07/22 09:00 History release atorvastatin 80 mg tablet 80 mg PO DAILY 05/16/25 05/16/25 Unknown History meloxicam 15 mg tablet 15 mg PO DAILY 05/16/25 05/16/25 Unknown History risankizumab-rzaa 150 mg/mL mg subcut ONCE 05/16/25 05/16/25 Unknown History subcutaneous pen injector (Jaylan) tirzepatide 5 mg/0.5 mL mg subcut 05/16/25 05/16/25 Unknown History subcutaneous pen injector (Mounjaro) Allergies Allergy/AdvReac Type Severity Reaction Status Date / Time lisinopril AdvReac Cough Verified 07/08/25 09:26 Review of Systems Review of Systems: All systems reviewed & are unremarkable except as noted in HPI and below PMFSH Past Medical History Medical History Chronic renal disease, stage 3, moderately decreased glomerular filtration rate (GFR) between 30-59 mL/min/1.73 square meter Hemorrhage following tonsillectomy and adenoidectomy Psoriatic arthritis Arthritis Chronic pain syndrome Myocardial infarction Hypertension Hyperlipidemia Diabetes CAD (coronary artery disease) Bloating Irritable bowel syndrome with diarrhea Colon cancer screening GERD (gastroesophageal reflux disease) Psoriasis Alternating constipation and diarrhea Surgical History Surgical History History of foot surgery History of eyelid surgery Hx of cholecystectomy S/P CABG x 3 Stented coronary artery Family History Family History Father Family history of heart disease in male family member before age 55 Diabetes mellitus Family history of diabetes mellitus in first degree relative Hypertension Heart disease Acute myocardial infarction Mother Diabetes mellitus Family history of diabetes mellitus in first degree relative Hyperlipemia Hypertension Heart disease Acute myocardial infarction Grandparent Family history of malignant neoplasm Other Family history of allergic disorder Family history of tuberculosis Social History Social History Social History: the patient works at [employer] 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 He has 3 children. The patient quit smoking in approximately 2016. He lives with his Linda and she is the durable power ip attorney for healthcare. He denies any marijuana alcohol or illicit drugs. Code status full code Smoking packs per day: 0.75 Smoking cigarettes per day: 15.0 Years smoked: 30 Smoking pack-years: 22.50 Smoking status: Former smoker Tobacco type: cigarettes Second hand tobacco smoke exposure: No Additional smoking assessment comments: 3/4 PPD for 40 years Alcohol intake: never Drinks per week: 1 Alcohol use details: socially Substance use: never Substance use type: does not use Lack of Transportation: No Lack of Food: Never True Current Housing: I Have Housing Concerned About Future Housing: No Difficulty Paying Gas/Electric Bills: No Difficulty Paying for Meds: No Currently Unemployed: No Education: Decline to Answer Difficulty w/ Childcare or Family Care: Decline to Answer Living arrangements: with family Additional living arrangements comments: with linda Gender identity (if verbalized by the patient): Male Sexual Orientation (if Verbalized by the Patient): Straight or Heterosexual Spiritual care concerns: No Exam Narrative: APPEARANCE: Well appearing, no pain, no distress, well-nourished. HEAD: normocephalic, atraumatic. EYES: PERRLA/EOMI, conjunctivae clear. NOSE: Normal no drainage EARS:TMS clear with good light reflex. THROAT: Pharynx clear, no exudate. NECK: Supple. No adenopathy, no masses. RESPIRATORY: Airway patent, respirations nonlabored. Clear to auscultation bilaterally, no rales, rhonchi, wheezing. CARDIOVASCULAR: Regular rate and rhythm without murmurs rubs or gallops. ABDOMINAL: Soft, nontender, nondistended, normal bowel sounds MUSCULOSKELETAL: Moves all extremities. Strength/ROM intact, No edema, No calf tenderness. NEURO: Alert. Cranial nerves II through XII intact. Grossly intact SKIN: Warm, dry. Normal Color Course Vital Signs Vital signs: Vital Signs Pulse Rate 69 07/08/25 09:22 Respiratory Rate 19 07/08/25 09:22 Blood Pressure 164/67 H 07/08/25 09:22 Pulse Oximetry 99 07/08/25 09:22 Oxygen Delivery Room Air 07/08/25 09:22 Temperature 97.7 F 07/08/25 09:26 Pulse Rate 71 07/08/25 17:38 Respiratory Rate 18 07/08/25 17:38 Blood Pressure 138/53 L 07/08/25 17:38 Pulse Oximetry 99 07/08/25 17:38 Oxygen Delivery Room Air 07/08/25 09:28 Medical Decision Making [facility] Narrative Medical decision making narrative: 64-year-old male with significant cardiac history presents emergency department for evaluation for chest pain that does sound reminiscent cardiac chest pain. Patient states his pain is significantly improved but does still have some radiation pain to the left arm. Patient denies any associated shortness of breath. Patient is currently afebrile with no leukocytosis hemoglobin of 12.0. INR of 1.0. Patient does have a creatinine 1.53 which is similar to his baseline chronic kidney disease. Patient had negative serial troponins and EKG showing no evidence of acute STEMI. I did consult Cardiology and we discussed transfer to [facility] versus cardiac catheterization at our facility. Patient's last cardiac catheterization here resulted in a transfer to [facility]. Cardiology did feel comfortable keeping the patient here over the weekend and anticipates doing a cardiac catheterization on Friday morning. Patient and family were updated on results of the workup and plan for admission and cardiac catheterization Friday. Patient was comfortable with the plan for admission. All questions concerns were addressed and patient was pain-free and well appearing at time of admission. Hospitalist was updated on the plan for admission. All questions were addressed. Differential Diagnosis Differential Diagnosis: ACS, pulmonary embolism, pneumonia, CHF, COVID, RSV, influenza, pleurisy, pneumothorax Vital Signs Vital Signs: Vital Signs Pulse Rate 69 07/08/25 09:22 Respiratory Rate 19 07/08/25 09:22 Blood Pressure 164/67 H 07/08/25 09:22 Pulse Oximetry 99 07/08/25 09:22 Oxygen Delivery Room Air 07/08/25 09:22 Temperature 97.7 F 07/08/25 09:26 Pulse Rate 71 07/08/25 17:38 Respiratory Rate 18 07/08/25 17:38 Blood Pressure 138/53 L 07/08/25 17:38 Pulse Oximetry 99 07/08/25 17:38 Oxygen Delivery Room Air 07/08/25 09:28 Lab Data Lab results reviewed: Yes I reviewed the patient's lab results. 07/08/25 09:32 07/08/25 09:32 Labs: Lab Results 07/08/25 07/08/25 07/08/25 Range/Units 09:32 12:35 15:25 WBC 6.4 (4.5-10.0) K/mm3 RBC 4.75 (4.6-6.20) M/mm3 Hgb 12.0 L (14.0-18.0) g/dL Hct 38.1 L (42.0-52.0) % MCV 80.2 (80-100) fl MCH 25.3 L (26-34) pg MCHC 31.5 L (32-36) g/dl RDW 15.2 H (11.5-14.5) % Plt Count 259 (150-375) k/mm3 MPV 10.1 (7.4-10.4) fl Immature Gran % (Auto) 0.3 (0-0.5) % Neut % (Auto) 57.1 (45.5-73.1) % Lymph % (Auto) 30.3 (18.3-44.2) % [place] % (Auto) 7.8 (2.6-8.5) % Eos % (Auto) 3.1 (0-4.4) % Baso % (Auto) 1.4 H (0.2-1.2) % Lymph # (Auto) 1.94 (0.9-3.2) K/mm3 [place] # (Auto) 0.5 (0.1-0.6) K/mm3 Eos # (Auto) 0.2 (0-0.3) K/mm3 Baso # (Auto) 0.1 (0.0-0.1) K/mm3 Abs Immat Gran (auto) 0.02 (0.00-0.031) K/mm3 Absolute Neuts (auto) 3.7 (1.3-6.7) K/mm3 Absolute Nucleated RBC 0.000 (0.0-0.012) K/mm3 Nucleated RBC % 0.0 (0.0-0.2) % PT 13.1 (11.1-14.7) Seconds INR 1.0 APTT 26.4 (22.3-36.8) Seconds Sodium 135 L (137-145) mmol/L Potassium 4.5 (3.4-5.0) mmol/L Chloride 102 (98-107) mmol/L Carbon Dioxide 20 L (22-30) mmol/L Anion Gap 13 H (4-12) mmol/L BUN 30 H D (9-20) mg/dL Creatinine 1.53 H (0.7-1.3) mg/dL Estim Creat Clear Calc 53 ml/min Estimated GFR 46 L (59 - ) Glucose 216 H (65-110) mg/dL Calcium 9.9 (8.4-10.2) mg/dL Total Bilirubin 0.5 (0.2-1.3) mg/dL AST 85 H (17-59) U/L ALT 96 H (6-50) U/L Alkaline Phosphatase 74 (38-126) U/L Troponin I < 0.012 < 0.012 < 0.012 (0.000-0.034) ng/mL Total Protein 8.7 H (6.3-8.2) g/dL Albumin 4.8 (3.5-5.1) g/dL Amylase 104 (30-110) U/L Lipase 404 H (23-300) U/L Imaging Data Radiologist's impression: Impressions Chest X-Ray 07/08/25 09:53 Impression: No acute cardiopulmonary abnormality. ECG Data EKG #1: EKG Interpretation: normal rate, sinus rhythm, no ectopy, non-specific ST changes, normal QRS and NL axis Discharge Plan Discharge Clinical Impression: Chest pain Patient Disposition: Still a Patient Condition: Serious Quality HEART score for chest pain patients History: moderately suspicious ECG: normal Age: > 45 and < 65 years Risk factors: > or = to 3 risk factors of atherosclerotic disease Troponin: < or = to 1x normal limit Heart score: 4
[2025-07-08] MEDS: MORPHINE SULFATE (*CRX) 4 MG/ML INJ 2 MG IV PUSH (09:36)
[2025-07-08] MEDS: NITROGLYCERIN SL 0.4 MG TABLET SUBLINGUAL (09:38)
[2025-07-08 09:42] LABS: Hematocrit 38.1 % (42.0-52.0); Hemoglobin 12.0 g/dL (14.0-18.0); Immature Granulocyte Percent A 0.3 % (0-0.5); Lymphocytes Absolute Auto 1.94 K/mm3 (0.9-3.2); Mean Corpuscular HGB Conc 31.5 g/dl (32-36); Mean Corpuscular Hemoglobin 25.3 pg (26-34); Mean Corpuscular Volume 80.2 fl (80-100); Nucleated Red Blood Cells Absolute Auto 0.000 K/mm3 (0.0-0.012); Nucleated Red Blood Cells Perc 0.0 % (0.0-0.2); Platelet Count Result 259 k/mm3 (150-375); Red Blood Count 4.75 M/mm3 (4.6-6.20); White Blood Count 6.4 K/mm3 (4.5-10.0)
[2025-07-08 09:56] LABS: Alanine Aminotransferase 96 U/L (6-50); Albumin Level 4.8 g/dL (3.5-5.1); Alkaline Phosphatase 74 U/L (38-126); Anion Gap 13 mmol/L (4-12); Aspartate Amino Transferase 85 U/L (17-59); Bilirubin,Total 0.5 mg/dL (0.2-1.3); Blood Urea Nitrogen 30 mg/dL (9-20); Calcium 9.9 mg/dL (8.4-10.2); Carbon Dioxide 20 mmol/L (22-30); Chloride 102 mmol/L (98-107); Estimated CRCL calculation 53 ml/min; Estimated Glomerular Filt Rate 46; Glucose 216 mg/dL (65-110); Lipase 404 U/L (23-300); Potassium 4.5 mmol/L (3.4-5.0); Sodium 135 mmol/L (137-145); Total Protein 8.7 g/dL (6.3-8.2)
[2025-07-08 10:06] LABS: Troponin I < 0.012 ng/mL (0.000-0.034)
[2025-07-08 10:17] LABS: INR 1.0; Prothrombin Time 13.1 Seconds (11.1-14.7)
[2025-07-08 10:18] LABS: Partial Thromboplastin Time 26.4 Seconds (22.3-36.8)
--- OUTSIDE RECORDS SUMMARY | 2025-07-08 10:28 | XMS_ITS | Clinical Summary ---
Author Organization [facility] Address [address] [place] [address] Care Team Providers Care Director Of Residence Life Name Role Phone Unavailable Primary Care Provider Unavailabl e Source Comments [facility],non-owned Affiliates and Associated Physician Practices is amultiple site organization consisting of ambulatory clinics and hospital sitesin [place], [place], [place] and [place]. This disclosure is being madepursuant to the Care Everywhere program and may not contain all information available regarding this patient. 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
--- OUTSIDE RECORDS SUMMARY | 2025-07-08 10:28 | XMS_ITS | Clinical Summary ---
Author Organization [facility] Address [address] [place] [address] Phone Care Team Providers Care Prosthetic Aides Teacher Name Role Phone Les Jennings MD Primary Care Provider Allergies Active Allergy Reactions Criticality Noted Date [...] (06/01/2020): Added automatically from request for surgery [id number] Diabetic dyslipidemia associ ated with type 2 [...] Influenza Vaccine (#1) 2025 Insurance Care Teams Prosthetic Aides Teacher Relationship Specialty Start Date End Date Les Jennings MD PCP - General Family Medicine 05/25/20
--- OUTSIDE RECORDS SUMMARY | 2025-07-08 10:28 | XMS_ITS | Clinical Summary ---
Author Organization [facility] [address] Address [address] [place] [address] Care Team Providers Care Talcer Name Role Phone Frantz Presley MD Unavailable [phone] Jose Simon MD Primary Care Provide r [...] 10 mg tabletIndications:Co ronary artery disease of council artery of council heart with stable angina pectoris,Hypertensio n associated with diabetes (HCC) TAKE 1 TABLET BY MOUTH ONCE DAILY BEFORE BREAKFAST 90 tablet 3 08/19/20 24 Active rosuvastatin (CRESTOR) 40 mg tabletIndications:Co ronary artery disease of council artery of council heart with stable angina pectoris,Hyperlipide vivi associated [...] 24 hr tabletIndications:Co ronary artery disease of council artery of council heart with stable angina pectoris Take 1 tablet (60 mg total) by mouth daily 90 tablet 3 03/15/20 25 026 Active Active Problems Problem Noted Date Diagnosed Date Palpitations 03/15/2025 Coronary artery disease invo lving council coronary artery of council heart with unstable angina pectoris 07/29/2023 History of COVID-19 04/23/2022 Chronic renal impairment 07/04/2021 Entropion of right lower eyelid 05/31/2020 Overview (05/31/2020): Added automatically from request for surgery [id number] Dyslipidemia 12/03/2018 Coronary artery disease of n ative artery of council heart with stable angina pectoris 10/31/2017 Hyperlipidemia [...] drink = 0.6 oz pur e alcohol) [facility] Utilities Answer Date Recorded In the [...] often do you attend chur ch or uatsdin services? Never 07/29/2023 Do you belong to any clubs o r organizations such as scientology groups, unions, fraternal or athletic groups, or [...] place to sleep or slept in a group home (including now)? No 07/29/2023 Personal Safety Answer Date Recorded Have you ever been in or are you currently in a harmful physical or emotional relationship or is someone making you feel afraid or unsafe? 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 Gender Identity Male 05/11/2021 11:00 AM CDT [...] 08/15/2023, 05/14/2023 Medical Devices Implanted Type Area Relationship Counselor Device Identifier Shelf Expiration Date Model / Serial / Lot Medtronic [facility] Vasc Surgery 3.0 X 15mm [place] [employer] Coronary Stent [id number] - [id number] Implanted:Qty: 1 on 07/29/2023 by Mireille Ley MD at [facility] Medtronic [facility] Vas Surgery 03/25/2026 [id number] / / [id number] Medtronic [facility] Surgery 3.0 X 18mm [place] [employer] Coronary Stent [id number] - [id number] Implanted:Qty: 1 on 07/29/20[facility] 12/07/2025 [id number] / / [id number] [employer] Pk Papyrus 3mm 15mm 140mm Delivery System Cover Nonwoven [id number] - [id number] Implanted:Qty: 1 on 07/29/2023 by Mireille Ley MD at [facility] [employer] 08/06/2024 [id number] / / [id number] [employer] Pk Papyrus 3mm 15mm 140mm Delivery System Cover Nonwoven [id number] - [id number] Implanted:Qty: 1 on 07/29/2023 by Mireille Ley MD at [facility] [employer] 01/22/2025 [id number] / / [id number] [employer] Pk Papyrus 2.5mm 15mm 140mm Delivery System Cover Nonwoven [id number] - [id number] Implanted:Qty: 1 on 07/29/2023 by Mireille Ley MD at [facility] [employer] 07/31/2024 [id number] / / [id number] [employer] [facility] Device Vascular Closure Femoral Artery Bioabsorbable Dual Method Vascade 6-7fr Collagen [id number] - [id number] Implanted:Qty: 1 on 07/29/2023 by Mireille Ley MD at [facility] [employer] 42cm 01/13/2025 [id number] / / [id number] Procedures Procedure Name Priority Date/Time Associated Diagnosis Comments POCT LIPID PANEL Routine 03/15/2025 2:57 PM CDT Coronary artery disease of council artery of council heart with stable angina pectoris Hyperlipidemia associated with type 2 diabetes mellitus (HCC) COMPREHENSIVE METABOLIC PANEL Routine 01/24/2024 9:18 AM CDT Chest tightness Coronary artery disease of council artery of council heart with stable angina pectoris Pre-operative cardiovascular [...] 01/25/2024 7:07 AM CDT Performed at: - [address] [id number] Railroad Baggage Porter: Roberto Gordon PhD, Phone: [phone] us Gerard Berman MD LAB BLOOD ORDERABLES [...] and children were not included. (Diabetes Care 31:3778-1082, 2008). The eAG is not equivalent to a fasting glucose. 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 [facility] [address] [address] [place] [address] PCP - General Internal Medicine 08/17/24 Frantz Presley MD Surgeon Ophthalmology 06/16/20
--- OUTSIDE RECORDS SUMMARY | 2025-07-08 10:28 | XMS_ITS | Data Portability ---
Author Organization [facility] [employer], Main Office Address [address] [place] [address] Care Team Providers Care Echocardiographer Name Role Phone FREDDY SIMON Primary Care Provider FREDDY SIMON Referring Provider [phone] FREDDY SIMNO Primary Care Provider YOUSUF GILLIAM Cobol Programmer [phone] Assessment Encounter Date Assessment Date Assessment LastModified by Organization Details LastModified Time 09/14/2024 09/14/2024 Heel lift and low-dye tape/strap Lt. [email or web address] Not available 09/15/2024 13:07:55 12/01/2024 12/01/2024 08/12/2024: PSA 0.68 A1C 7.1 Urine micro alb 934.2H Not available 12/01/2024 17:34:46 03/30/2025 03/30/2025 08/12/2024: PSA 0.68 A1C 7.1 Urine micro alb 934.2H 03/05/2025: A1C 6.2 H/H 11.2/37.1 Gluc 141, Cr 1.42, GFR 56, AST 46 TG 234 Not available 03/30/2025 18:01:18 04/06/2025 04/06/2025 64-year-old patient presents today with bilateral hip pain that has been going on for about 10 months but is starting to get worse. He states that when he is walking 50+ yds he starts to have pain in both hips. If he sits and rests for a few minutes he feels better and is able to continue walking. He states he does not have pain at rest. The pain is located in the posterior hips and pelvis And sometimes radiates up to his lower back. For treatment he has tried ibuprofen and Aspercreme which did not help. He rates the pain 4/10. Review of systems per patient questionnaire Imaging: X-rays reviewed of bilateral hips show no acute bony abnormality or fracture. Mild degenerative osteoarthritic changes, left worse than right. Physical exam: No tenderness to palpitation over lateral hip bilaterally. No restrictions in range of motion, no pain with range of motion. Negative FADIR TONY. No weakness or pain with straight leg raise bilaterally. No tenderness along posterior hips with palpitation. Sensation intact. We discussed the since he is having difficulty walking long distances he would benefit from a course of physical therapy to help strengthen the hips. This suggestion upset him, as he works during the day and would not have time to do this. I explained that he could find a location close to work or home and inquire about evening hours, but he disagreed that this would be possible. He stated that this appointment was a waste of time. I also recommended a stronger anti-inflammatory , we will try meloxicam. We provided a hip exercise handout to work on at home. If the pain continues we can try fluro guided cortisone injections. He states he will call if he decides to come back. [email or web address] Not available 04/06/2025 17:09:08 06/29/2025 06/29/2025 08/12/2024: PSA 0.68 A1C 7.1 Urine micro alb 934.2H 03/05/2025: A1C 6.2 H/H 11.2/37.1 Gluc 141, Cr 1.42, GFR 56, AST 46 TG 234 06/25/2025: Dr Weinstein Gluc 182, GFR 44 Not available 06/29/2025 18:05:48 Plan of Treatment Reminders Order Date Submit Date Provider Last Modified By Organization Details Last Modified Time Details Appointments New Patient 15 2024 02:00P M Kerri Pete MD Not available Not available Not available Any 15 2025 04:00P M Freddy zhou MD Not available Not available Not available Lab lipid panel, serum 2024 025 [facility], [address] [place], [address], 06/30/2025 12:35:24 CMP, serum or plasma 2024 025 [facility], [address] [place], [address], 06/30/2025 12:35:24 CBC w/ auto diff 2024 025 [facility], [address] [place], [address], 06/30/2025 12:35:24 TSH, serum or plasma 2024 025 [facility], [address] [place], [address], 06/30/2025 12:35:24 T4, free, serum 2024 025 [facility], [address] [place], [address], 06/30/2025 12:35:24 vitamin D, 25-hydro xy, total, serum 2024 025 [facility], [address] [place], [address], 06/30/2025 12:35:24 microalb umin, urine 2024 025 [facility], [address] [place], [address], 06/30/2025 12:35:24 glycohem oglobin, total, blood 2024 025 [facility], [address] [place], [address], 06/30/2025 12:35:24 gamma-gl utamyl transfer ase (ggt), serum 2024 025 [facility], [address] [place], [address], 06/30/2025 12:35:24 hepatiti s panel (A+B+C), acute, serum 2024 025 [facility], [address] [place], [address], 06/30/2025 12:35:24 vitamin B12 + folate, serum or blood 2024 025 [facility], [address] [place], [address], 06/30/2025 12:35:24 lipid panel, serum [address] Outpatient Lab, [address] [place], [address], 04/07/2025 08:57:29 CMP, serum or plasma [address] Outpatient Lab, [address] [place], [address], 04/07/2025 08:57:38 CBC w/ auto diff [address] Outpatient Lab, [address] [place], [address], 04/07/2025 08:57:46 TSH, serum or plasma [address] Outpatient Lab, [address] [place], [address], 04/07/2025 08:57:58 T4, free, serum [address] Outpatient Lab, [address] [place], [address], 04/07/2025 08:58:06 vitamin D, 25-hydro xy, total, serum [address] Outpatient Lab, [address] [place], [address], 04/07/2025 08:57:12 microalb umin, urine [address] Outpatient Lab, [address] [place], [address], 04/07/2025 08:57:01 glycohem oglobin, total, blood [address] [facility], [address] [place], [address], 03/31/2025 12:41:27 gamma-gl utamyl transfer ase (ggt), serum [address] [place] [address] Outpatient Lab, [address] [place], [address], 04/07/2025 08:58:15 hepatiti s panel (A+B+C), acute, serum [address] Outpatient Lab, [address] [place], [address], 04/07/2025 08:58:23 vitamin B12 + folate, serum or blood [address] [place] [address] Outpatient Lab, [address] [place], [address], 04/07/2025 08:57:21 lipid panel, serum [address] [place] [address] Outpatient Lab, [address] [place], [address], 12/14/2024 15:15:31 CMP, serum or plasma [address] Outpatient Lab, [address] [place], [address], 12/14/2024 15:15:31 CBC w/ auto diff [address] Outpatient Lab, [address] [place], [address], 12/14/2024 15:15:32 TSH, serum or plasma [address] Outpatient Lab, [address] [place], [address], 12/14/2024 15:15:32 T4, free, serum [address] Outpatient Lab, [address] [place], [address], 12/14/2024 15:15:32 vitamin D, 25-hydro xy, total, serum [address] Outpatient Lab, [address] [place], [address], 12/14/2024 15:15:31 microalb umin, urine [address] Outpatient Lab, [address] [place], [address], 12/14/2024 15:15:31 glycohem oglobin, total, blood [address] Outpatient Lab, [address] [place], [address], 05/30/2025 10:54:38 vitamin B12 + folate, serum or blood [address] Outpatient Lab, [address] [place], [address], 12/14/2024 15:15:31 Referral orthoped ic surgeon referral - Please call patient to schedule an appointm ent. Thank you. 2024 025 [email or web address] Les Lopez MD, [address], [place], [address], 06/30/2025 15:19:17 pulmonol ogist referral - Please call patient to schedule an appointm ent. Thank you. 2024 025 [email or web address] Jim Humphries MD, [address], [place], [address], 07/06/2025 10:38:33 nephrolo gist referral - Please call patient to schedule an appointm ent. Thank you. 2024 025 KARTHIK Weinstein MD, [address], [address], [place], [address], 07/06/2025 11:12:[address] referral - Please call patient to schedule an appointm ent. Thank you. 2024 025 KARTHIK Willis MD, [address], [address], [place], [address], 07/06/2025 11:11:13 orthoped ic surgeon referral - Please call patient to schedule an appointm ent. Thank you. 2024 025 FAMILIA Lopez MD, [address], [place], [address], 04/06/2025 17:10:29 urologis t referral - Please call patient to schedule an appointm ent. Thank you. 2024 025 [email or web address] Avtar Martin MD, [address], [address], [place], [address], 07/05/2025 09:16:43 nephrolo gist referral - Please call patient to schedule an appointm ent. Thank you. 2024 025 [email or web address] Alice Weinstein MD, [address] [facility] [address], [place], [address], 07/05/2025 09:05:07 cardiolo gist referral - Please call patient to schedule an appointm ent. Thank you. 2024 025 dutch Berman, [address] [facility], [place], [address], 06/09/2025 11:25:36 Procedures None recorded . Surgeries None recorded . Imaging LDCT, chest, for lung cancer screenin g - Please call patient to schedule . 2024 025 [facility] ([facility]), [address], [place], [address], 06/30/2025 10:50:44 XR, hip + pelvis, unilater al 2024 025 [email or web address] [facility]leen Osorio, [address] [facility] [address], [place], [address], 04/17/2025 18:49:47 US, liver - Please call patient to schedule . [address] [facility], [address], [place], [address], 04/28/2025 15:07:23 Medication Orders Mounjaro 7.5 mg/0.5 mL subcutan eous pen injector 2024 025 [facility], [place], [address], 06/29/2025 18:12:09 meloxica m 15 mg tablet 2024 [facility] [address], [place], [address], 06/29/2025 17:27:57 atorvast atin 80 mg tablet 2024 025 [facility], [address], [place], [address], 03/30/2025 17:57:37 amoxicil jair 875 mg-potas sium clavulan ate 125 mg tablet 2024 025 [facility], [address], [place], [place], [address], 03/30/2025 17:09:50 metoprol ol tartrate 50 mg tablet 2024 025 [facility], [address], [place], [place], [address], 12/01/2024 17:49:00 Patient TargetsNo targets recorded. Patient Instructions Encounter Date Encounter Id Patient Instructions Last Modified By Organization Details Last Modified Time 09/14/2024 [id number] Pt to leave dressing intact and dry for three d and RTC for orthotics/heel lift as needed. [email or web address] Not available 09/15/2024 13:08:17 Reason for Referral Heading And Priming Tool Setter Referral for Co ronary arteriosclerosis Please call patient to schedule an appointment. Thank you. Referring Physician: Freddy Simon, Internal Medicine, Encounter Date: 12/01/2024 Certified Lactation Counselor Referral for Ch ronic kidney disease Please call patient to schedule an appointment. Thank you. Referring Physician: Freddy Simon Internal Medicine, Encounter Date: 03/30/2025 Urologist Referral for Benig n prostatic hyperplasia without outflow obstruction Please call patient to schedule an appointment. Thank you. Referring Physician: Freddy Simon Internal Medicine, Encounter Date: 03/30/2025 Orthopedic Surgeon Referral for Pain of hip region Please call patient to schedule an appointment. Thank you. Referring Physician: Freddy Simon Internal Medicine, Encounter Date: 03/30/2025 Certified Lactation Counselor Referral for Ch ronic kidney disease Please call patient to schedule an appointment. Thank you. Referring Physician: Freddy Simon, Internal Medicine, Encounter Date: 06/29/2025 Orthopedic Surgeon Referral for Pain of hip region Please call patient to schedule an appointment. Thank you. Referring Physician: Freddy Simon, Internal Medicine, Encounter Date: 06/29/2025 Cobol Programmer Referral for Liver enzymes level above reference range Please call patient to schedule an appointment. Thank you. Referring Physician: Freddy Simon, Internal Medicine, Encounter Date: 06/29/2025 Director Medicaid Referral for D isorder of respiratory system suspected Please call patient to schedule an appointment. Thank you. Referring Physician: Freddy Simon, Internal Medicine, Encounter Date: 06/29/2025 Results Created Date Observation Date Name Description Value Unit Range Abnormal Flag Note LastModifiedBy Organization Detail LastModifiedTime 08/25/20 24 08/25/2024 LDCT, chest , for lung cance r scree tila [facility] [place] [address] Patien t Name: ALBERTO CRISTINA Access ion #: [id number] Sex: M : 1959 9 Dictat ed By: Jesse Trujillo ms Attend ing Physic manuel: DEE SANCHES Orderi Physic manuel: DEE SANCHES Exam Date: 2023 11:02 AM Exam Name: CT LOW DOSE CNCR SCREEN ING Admitt ing Diagno sis(es ): CT Chest withou t intrav enous contra st INDICA TION: [place]acc o use TECHNI QUE: Multid etecto r spiral CT of the chest was perfor med from the lung apices to the upper abdome n utiliz ing axial images . Peng l and sagitt al multip lanar reform ats were perfor med. Radiat ion Dose : 1. Chest: CTDI volume is 2.2 mGy. Dose-l ength produc t is 93.2 mGy*cm The dose indica tors for CT are the volume Comput ed Tomogr aphy (CT) Dose Index (CTDIv ol) and the Dose Length Produc t (DLP), and are measur ed in units of mGy and mGy-cm , respec tively . These indica tors are not patien t dose, but values genera john from the CT scanne r acquis ition factor s. The report includ es radiat ion exposu re data for exposu res receiv ed during this examin ation. Compar timmy: Chest radiog raph perfor med on 2021. Findin gs: Lower neck: Unrema rkable thyroi d Lungs: Left lower lobe atelec tasis. No suspic ious pulmon haley nodule s. Bilate ral apical emphys carolynn. Centra l airway s: Patent . Pleura : No pleura l effusi ons. No pneumo thorax Heart/ Vascul ar Struct ures: The heart is normal in size. No perica rdial Page 1 [facility] [address] [address] Patien t Name: ALBERTO CRISTINA Access ion #: [id number] Sex: M : 1959 9 Dictat ed By: Jesse Trujillo ms Attend ing Physic manuel: MILKA PEREZ [facility] Physic manuel: DEE SANCHES Exam Date: 2023 11:02 AM Exam Name: CT LOW DOSE CNCR SCREEN ING Admitt ing Diagno sis(es ): effusi on. There are peng ry artery calcif icatio ns. Normal calibe r thorac ic aorta. The main pulmon haley artery is normal in calibe r. Lymph Nodes: No adenop athy Muscul oskele rosalee: No fractu re or suspic ious bone lesion s. Body wall: Unrema rkable Upper abdome n: Unrema rkable . IMPRES TAHMINA: 1. No suspic ious pulmon haley nodule s. 2. Emphys carolynn. 3. Left lower lobe atelec tasis. 4. Peng ry artery calcif icatio ns. Lung-R ADS: Catego ry 1: Recomm endati on: Contin ue annual screen ing with LDCT https: //[email or web address]. [email or web address] [email or web address] [email or web address] /[email or web address]- [email or web address] [email or web address]-[email or web address] Electr onical ly Signed by: Jessenew Trujillo ms at 2023 12:16: 35 PM Page [email or web address] [facility] (Imaging) [address] [place], [address], 12/01/2024 17:50:15 08/25/20 24 08/25/2024 LDCT, chest , for lung cance r scree tila No observ ation record ed. [facility] [address] [place], [address], 08/25/2024 13:29:40 04/06/20 25 XR, hip + pelvi s, unila teral No observ ation record ed. [email or web address] [facility] [place] [address], [place], [address], 04/06/2025 17:08:18 04/28/20 25 04/28/2025 US, liver No observ ation record ed. [facility] [address], [place], [address], 04/28/2025 15:07:23 Result Notes None recorded. Problems Name Problem SNOMED Code Status Onset Date Resolution Date Notes Provider Name and Address Organization Details Recorded Time Essential hypertensio n 36568105 Active 2023 Freddy lima MD [address], [address], [place], [address], [facility] [employer] 16:10:55 Hyperlipide [facility] 69233862 Active 2023 Freddy lima MD [address], [address], [place], [address], [facility] 5 18:12:51 Type 2 diabetes mellitus without complicatio n 969222717 Active 2023 Freddy lima MD [address], [address], [place], [address], [facility] 5 18:08:37 Coronary arterioscle rosis 67848203 Active 2023 Freddy lima MD [address], [address], [place], [address], [facility] 5 18:03:56 Vitamin D deficiency 94767984 Active 2023 Freddy lima MD [address], [address], [place], [address], [facility] 5 09:31:13 Serum vitamin B12 below reference range 917046831 Active 2023 Freddy lima MD [address], [address], [place], [address], [facility] 5 09:31:13 Benign prostatic hyperplasia without outflow obstruction 808300051 Active 2023 Freddy lima MD [address], [address], [place], [address], [facility] - [facility] [employer] [facility] 5 18:10:13 Plaque psoriasis 587088818 Active 2023 Freddy lima MD [address], [address], [place], [address], [facility] 5 09:31:13 Otitis media 36511987 Active 2023 Freddy lima MD [address], [address], [place], [address], [facility] 4 16:55:24 Otitis media 07674809 Active 2023 Freddy lima MD [address], [address], [place], [address], [employer] 4 16:56:20 Benign prostatic hyperplasia with outflow obstruction 387528430 Active 2023 Brian Amaya MD [address], [address], [place], [address], [employer] 4 18:54:13 Peripheral neuropathy due to type 2 diabetes mellitus 0350384478017 Active 2023 Cameron Zuleta DPM [address], [address], [place], [address], [employer] - [facility] [employer] 4 09:02:01 Pain in right foot 0476342786699 07 Active 2023 Cameron Zuleta DPM [address], [place], [address], [facility] [employer] [facility] [employer] [facility] 4 09:02:09 Paronychia of toe 073195981 Active 2023 Clifton Daniels [facility] null, [place] [employer] [facility] 4 16:47:20 Upper respiratory infection 28935042 Active 2024 Freddy lima MD [address], [place], [address], [employer] [facility] 5 17:47:25 Chronic kidney disease 729348710 Active 2024 Freddy lima MD [address], [address], [place], [address], [employer] [facility] [employer] [facility] 5 13:57:02 Liver enzymes level above reference range 158737633 Active 2024 Freddy lima MD [address], [address], [place], [address], [employer] [facility] 5 17:53:18 Pain of hip region 20086108 Active 2024 Freddy ilma MD [address], [place], [address], [facility] 18:01:12 Daytime somnolence 449039110693 Active 2024 Freddy lima MD [address], [place], [address], [facility] 18:10:14 Disorder of respiratory system suspected 345186361 Active 2024 Freddy lima MD [address], [place], [address], [facility] [employer] [facility] [facility] 18:10:25 Problem Notes Documentation Provider Name and Address Organization Details Recorded Time Orthopedic Surgeon Consult Note : [facility] [address], [facility] [id number], Tony (id #[id number], : 1960) Documents sent via fax will include the following message: This fax may contain sensitive and confidential personal health information that is being sent for the sole use of the intended recipient. Unintended recipients are directed to securely destroy any materials received. You are hereby notified that the unauthorized disclosure or other unlawful use of this fax or any personal health information is prohibited. To the extent patient information contained in this fax is subject to 42 CFR Part 2, this regulation prohibits unauthorized disclosure of these records. If you received this fax in error, please visit [email or web address] to notify the sender and confirm that the information will be destroyed. If you do not have internet access, please call to notify the sender and confirm that the information will be destroyed. Thank you for your attention and cooperation. [ID:[id number]] , Date: 04/06/2025RE: Anais Stacy MD, I would like to thank you for referring Alberto Cristina to me for consultation and evaluation of Bilateral hip pain , on 04/06/2025. I have enclosed a copy of the office assessment and plan for your records. Once again, thank you for allowing me to participate in the care of this patient. Sincerely, Electronically Signed by: MARIANO HANEY NP Assessment/Manx46-ndod-qa d patient presents today with bilateral hip pain that has been going on for about 10 months but is starting to get worse. He states that when he is walking 50+ yds he starts to have pain in both hips. If he sits and rests for a few minutes he feels better and is able to continue walking. He states he does not have pain at rest. The pain is located in the posterior hips and pelvis And sometimes radiates up to his lower back. For treatment he has tried ibuprofen and Aspercreme which did not help. He rates the pain 4/10. Review of systems per patient questionnaire Imaging: X-rays reviewed of bilateral hips show no acute bony abnormality or fracture. Mild degenerative osteoarthritic changes, left worse than right. Physical exam: No tenderness to palpitation over lateral hip bilaterally. No restrictions in range of motion, no pain with range of motion. Negative FADIR TONY. No weakness or pain with straight leg raise bilaterally. No tenderness along posterior hips with palpitation. Sensation intact. We discussed the since he is having difficulty walking long distances he would benefit from a course of physical therapy to help strengthen the hips. This suggestion upset him, as he works during the day and would not have time to do this. I explained that he could find a location close to work or home and inquire about evening hours, but he disagreed that this would be possible. He stated that this appointment was a waste of time. I also recommended a stronger anti-inflammatory, we will try meloxicam. We provided a hip exercise handout to work on at home. If the pain continues we can try fluro guided cortisone injections. He states he will call if he decides to come back. 1.Bilateral hip painM25.551: Pain in right hip M25.552: Pain in left hip XR, HIP + PELVIS, UNILATERAL Side: BILATERAL meloxicam 15 mg tablet - Take 1 tablet(s) every day by oral route. Qty: (30) tablet Refills: 2 [facility] XR, HIP + PELVIS, UNILATERAL Side: BILATERAL Return to Office Freddy Simon MD for Any [address] [facility] Primary Care Zimmerman on 06/29/2025 at 04:15 PM Not Available [facility] 04/06/2025 17:11:34 Procedures Surgical History Date Name Laterality Status Provider Name and Address Organization Details Recorded Time 09/14/20 24 Strapping Foot & Ankle completed Cameron Zuleta DPM [address], [address], [place], [address], [facility] [employer] [facility] [facility] [employer] [facility] 09/15/2024 13:07:38 08/31/20 24 Trigger Point Injection completed Cameron Zuleta DPM [address], [address], [place], [address], [facility] [employer] [facility] [employer] [facility] 09/01/2024 11:33:33 08/25/20 24 Trigger Point Injection completed Cameron Zuleta DPM [address], [address], [place], [address], [facility] [employer] [facility] [facility] [employer] [facility] 08/26/2024 09:01:43 open heart surgery completed Ines Kraft MA [facility] [employer] [facility] 08/05/2024 15:56:00 coronary artery bypass grafts x 3 completed Ines Kraft MA [facility] [employer] [facility] 08/05/2024 15:56:10 Cardiac Stent Placement completed Ines Kraft MA [facility] [employer] [facility] 08/05/2024 15:56:37 [facility]ole[facility] [employer] [facility] 08/05/2024 15:56:45 Tonsillectomy completed NICK Cantu [facility] [employer] [facility] 08/05/2024 15:56:55 Cyst Removal [facility] [employer] [facility] 08/05/2024 15:57:16 procedure on eyelid completed Santos Kraft MA [facility] [employer] [facility] 08/05/2024 15:57:26 Foot Surgery completed Ines Kraft MA [facility] [employer] 08/05/2024 15:57:44 Imaging Results None recorded. Procedure Notes None recorded. Medical Equipment None Reported. Allergies Allergen ID Allergen Name Allergen Category Reaction Reaction Severity Criticality Documentation Date Start Date Code Code System Note Provider Name and Address Organization Details Recorded Time 63229 lisinopri l medicatio n cough severe Not available 07/21/2024 95127 RxNorm ANAND Cartwright, [facility] 16:24:13 Medications Name Sig Start Date Stop Date Status Note LastModified by Organization Details LastModified Time cyclobenzap rine 10 mg tablet 08/05 completed Not Available Not Available Not Available amoxicillin 500 mg capsule TAKE 1 CAPSULE BY MOUTH TWICE DAILY FOR 7 DAYS 08/05 completed Not Available Not Available Not Available atorvastati n 80 mg tablet TAKE 1 TABLET BY MOUTH ONCE DAILY active Not Available Not Available No t Available doxycycline hyclate 100 mg capsule TAKE 1 CAPSULE BY MOUTH TWICE DAILY FOR 7 DAYS 08/05 completed Not Available Not Available Not Available azithromyci n 250 mg tablet TAKE 2 TABLETS BY MOUTH ON DAY 1, AND THEN TAKE 1 TABLET BY MOUTH ONCE A DAY ON DAY 2 THROUGH DAY 5 06/29 completed Not Available Not Available Not Available meloxicam 15 mg tablet TAKE 1 TABLET BY MOUTH ONCE DAILY 06/29 completed Not Available Not Available Not Available isosorbide mononitrate ER 30 mg tablet,exte nded release 24 hr TAKE 1 TABLET BY MOUTH ONCE DAILY 03/30 completed Not Available Not Available Not Available clopidogrel 75 mg tablet TAKE 1 TABLET BY MOUTH ONCE DAILY active Not Available Not Available No t Available isosorbide mononitrate ER 60 mg tablet,exte nded release 24 hr TAKE 1 TABLET BY MOUTH ONCE DAILY active Not Available Not Available No t Available tamsulosin 0.4 mg capsule TAKE 1 CAPSULE BY MOUTH TWICE DAILY active Not Available Not Available No t Available amlodipine 10 mg tablet TAKE 1 TABLET BY MOUTH ONCE DAILY BEFORE BREAKFAST active Not Available Not Available No t Available metformin 1,000 mg tablet TAKE 1 TABLET BY MOUTH TWICE DAILY 03/30 completed Not Available Not Available Not Available metoprolol tartrate 50 mg tablet TAKE 1 TABLET BY MOUTH TWICE DAILY active Not Available Not Available No t Available nitroglycer in 0.4 mg sublingual tablet DISSOLVE ONE TABLET UNDER THE TONGUE EVERY 5 MINUTES NEEDED FOR CHEST PAIN. DO NOT EXCEED A TOTAL OF 3 DOSES IN 15 MINUTES active Not Available Not Available No t Available albuterol sulfate HFA 90 mcg/actuati on aerosol inhaler INHALE 2 PUFFS BY MOUTH 4 TIMES DAILY NEEDED FOR SHORTNESS OF BREATH FOR WHEEZING active Not Available Not Available No t Available clobetasol 0.05 % scalp solution APPLY SOLUTION TOPICALLY ONE TO TWO TIMES DAILY FOR UP TO 2 CONSECUTI VE WEEKS AT A TIME. MAY RESUME WITH FLARES NEEDED FOR NO LONGER THAN 2 WEEKS AT A TIME active Not Available Not Available No t Available metformin ER 500 mg tablet,exte nded release 24 hr TAKE 2 TABLETS BY MOUTH TWICE DAILY 08/05 completed Not Available Not Available Not Available amoxicillin 875 mg-potassiu m clavulanate 125 mg tablet TAKE 1 TABLET BY MOUTH EVERY 12 HOURS FOR 7 DAYS 03/30 completed Not Available Not Available Not Available cyclobenzap rine 5 mg tablet TAKE 1 TABLET BY MOUTH THREE TIMES DAILY WITH ONE DOSE AT BEDTIME 08/05 completed Not Available Not Available Not Available rosuvastati n 40 mg tablet TAKE 1 TABLET BY MOUTH ONCE DAILY 03/30 completed Not Available Not Available Not Available clobetasol 0.05 % shampoo APPLY TOPICALLY TO AFFECTED AREA DAILY. LET SIT FOR 3 TO 5 MINUTES BEFORE RINSING. active Not Available Not Available No t Available losartan 100 mg-hydrochl orothiazide 12.5 mg tablet TAKE 1 TABLET BY MOUTH ONCE DAILY active Not Available Not Available No t Available Fish Oil active Not Available Not Avai lable Not Available fenofibrate nanocrystal lized 48 mg tablet TAKE 1 TABLET BY MOUTH ONCE DAILY BEFORE BREAKFAST active Not Available Not Available No t Available fenofibrate 40 mg tablet Take 1 tablet every day by oral route. 03/30 completed Not Available Not Available Not Available Trulicity 0.75 mg/0.5 mL subcutaneou s pen injector INJECT 3/4 (THREE-FO URTHS ) ML SUBCUTANE OUSLY ONCE A WEEK 08/05 completed Not Available Not Available Not Available Skyrizi 150 mg/mL subcutaneou s pen injector Inject 150 mg every 3 months by subcutane ous route. active Not Available Not Available No t Available aspirin 81 mg capsule Take 1 capsule every day by oral route. active Not Available Not Available No t Available Mounjaro 7.5 mg/0.5 mL subcutaneou s pen injector Inject 7.5 mg every week by subcutane ous route for 30 days. 2024 active Not Available Not Available Not Avai lable Mounjaro 5 mg/0.5 mL subcutaneou s pen injector active Not Available Not Available Not Available Mounjaro 2.5 mg/0.5 mL subcutaneou s pen injector INJECT 2.5 MG SUBCUTANE OUSLY ONCE A WEEK, EVERY 7 DAYS 03/30 completed Not Available Not Available Not Available Vitals Date Recorded Body height Body mass index (BMI) Body weight Body temperature Heart rate Systolic And Diastolic Provider Name and Address Organization Details Last Updated DateTime 180.34 cm 28.7 kg/m2 94801.0 3 g 98.2 [degF] 66 /min 122/64 mm[Hg] ANAND Mcconnell [employer] 17:25:08 Date Recorded Body height Body mass index (BMI) Body weight Body temperature Heart rate Oxygen saturation Oxygen saturation in Arterial blood by Pulse oximetry Pain severity - 0-10 verbal numeric rating [Score] - Reported Systolic And Diastolic Provider Name and Address Organization Details Last Updated DateTime 180.34 cm 29.1 kg/m2 57566.8 1 g 98.2 [degF] 62 /min 97 % 97 % 0 124/62 mm[Hg] Ines Kraft MA [employer] 17:09:15 Date Recorded Body height Body mass index (BMI) Body weight Provider Name and Address Organization Details Last Updated DateTime 04/06/2025 180.34 cm 27.9 kg/m2 51421.47 g Sosa Saavedra [employer] 04/06/2025 15:42:30 Date Recorded Body height Body mass index (BMI) Body weight Body temperature Pain severity - 0-10 verbal numeric rating [Score] - Reported Heart rate Oxygen saturation Oxygen saturation in Arterial blood by Pulse oximetry Systolic And Diastolic Provider Name and Address Organization Details Last Updated DateTime 180.34 cm 30.5 kg/m2 94186.7 3 g 98.1 [degF] 0 70 /min 99 % 99 % 128/64 mm[Hg] Ines Kraft MA [facility] [employer] 17:27:05 Date Recorded Body height Provider Name an d Address Organization Details Last Updated DateTime 09/14/2024 180.34 cm [place] ANAND Daniels [facility] [employer] 09/14/2024 16:23:30 Social History Question Answer Notes LastModified by Organization Details LastModified Time Tobacco Smoking Status Former [facility] Sep 2016 [facility] [employer] [facility] 17:21:18 What Is Your Level Of Caffeine Consumption? Heavy Information not available 08/05/2024 In The 14 Days Before Symptom Onset, Have You Had Close Contact With A Laboratory-confi rmed COVID-19 While That Case Was Ill? No Information not available 08/05/2024 In The 14 Days Before Symptom Onset, Have You Had Close Contact With A Person Who Is Under Investigation For COVID-19 While That Person Was Ill? No Information not available 08/05/2024 What Type Of Diet Are You Following? REGULAR Information not available 08/05/2024 Have There Been Any Changes To Your Family Or Social Situation? No Information not available 08/05/2024 When Did You Quit Smoking? 6-10yearssincelastc igarette Information not available 08/05/2024 Do You Use Insect Repellent Routinely? Yes Information not available 08/05/2024 Where Do You Live? SingleLevelHouse Information not available 08/05/2024 What Was The Date Of Your Most Recent Tobacco Screening? 06/29/2025 Information not available 06/29/2025 How Many Children Do You Have? 2 Information not available 08/05/2024 What Is Your Current Pack Years? 30ormorepackyears Information not available 06/30/2025 Do You Have Any Pets? Yes Information not available 08/05/2024 What Is Your Relationship Status? Information not available 08/05/2024 Do You Use Your Seat Belt Or Car Seat Routinely? Yes Information not available 08/05/2024 Do You Have Smoke And Carbon Monoxide Detectors In Your Home? Yes Information not available 08/05/2024 At What Age Did You Start Smoking Tobacco? 17 Information not available 08/05/2024 Are You Passively Exposed To Smoke? No Information not available 08/05/2024 Are There Any Smokers In Your House? No Information not available 08/05/2024 How Much Tobacco Do You Smoke? No Was 1ppd [email or web address] Information not available 2024 Do You Use Sunscreen Routinely? Yes Information not available 08/05/2024 How Many Years Have You Smoked Tobacco? 39 [email or web address] Information not available 06/30/2025 Have You Recently Traveled Abroad? No Information not available 08/05/2024 Do You Have Any Dietary Restrictions? No Information not available 08/05/2024 Sex: Unknown Functional Status Question Answer Note LastModified by Organizat ion Details LastModified Time Do you use any illicit or recreational drugs? No Information not available 08/05/2024 Do you or have you ever used any other forms of tobacco or nicotine? No Information not available 08/05/2024 What is your level of alcohol consumption? Occasional Information not available 08/05/2024 Are you currently employed? Yes Information not available 08/05/2024 What is your occupation? [employer] Information not available 08/05/2024 What is your exercise level? Occasional Information not available 08/05/2024 Mental Status Question Answer Note LastModified by Organization D etails LastModified Time Do you feel stressed (tense, restless, nervous, or anxious, or unable to sleep at night)? [id number] Information not available 08/05/2024 Family History Relationship Description Onset Age of this Age Resolved Age Notes LastModified by Organization Details LastModified Time Mother Diabetes mellitus [email or web address] Not available 2023 17:20:10 Mother Myocardial infarction [email or web address] Not available 08/18 17:20:43 Father Hypertensive disorder [email or web address] Not available 2023 17:20:20 Father Myocardial infarction [email or web address] Not available 08/18 17:20:43 Medical History Condition Response HEART DISEASE/HEART PROBLEMS Y SKIN PROBLEMS Y ARTHRITIS Y DIABETES, TYPE Y USE OF BLOOD THINNERS Y Immunizations Vaccine Type Date Status Note Provider Nam e and Address Organization Details Recorded Time Influenza, MDCK, quadrivalent, PF 07/20/2021 completed Joan Freeman RMA null, [facility] 2024 17:19:45 Influenza, MDCK, quadrivalent, PF 08/10/2022 completed Joan Freeman RMA null, [facility] 2024 17:19:45 Influenza, MDCK, quadrivalent, PF 09/06/2017 completed Joan Freeman RMA null, [facility] 2024 17:19:45 zoster recombinant 05/14/2023 completed Joan Freeman RMA null, [facility] 2024 17:19:45 zoster recombinant 08/15/2023 completed Joan Freeman RMA null, [facility] 2024 17:19:45 COVID-19, mRNA, LNP-S, PF, 100 mcg/0.5mL dose or 50 mcg/0.25mL dose 09/21/2021 completed Joan Freeman RMA null, [facility] 2024 17:19:45 COVID-19, mRNA, LNP-S, PF, esequiel-sucrose, 30 mcg/0.3 mL 08/15/2023 completed Joan Freeman RMA null, [facility] 2024 17:19:45 Influenza, split virus, trivalent, PF 07/02/2024 completed Joan Freeman RMA null, [facility] 2024 17:19:45 Influenza, split virus, quadrivalent, PF 07/01/2023 completed ANAND Mcconnell, [place] [facility] [employer] [facility] 2024 17:19:45 Tdap 08/05/2024 completed ANAND Mcconnell[place] [facility] [employer] [facility] 08/06/2024 11:12:19 Past Encounters Encounter ID Performer Location Encounter Start Date Encounter Closed Date Diagnosis/Indication Diagnosis SNOMED-CT Code Diagnosis ICD10 Code Diagnosis IMO Codes Diagnosis Note [id number] Freddy zhou MD [facility] [address] [facility], [address] [place] [address] 08/05/2024 15:37:44 08/05/2024 16:49:29 Screening - NAD 435051405 Z13.9 C-scope: Dr Amber Gilliam MD 06/11/2024 , next in 6 years Get yearly flu shotGet tdap if not doneCan do shingrix vaccineCan do COVID 19 boostersGe t RSV vaccine RTC in 3 months, do labs, ER if worse, he did verbalize his understand ing of the above Ex-cigarette smoker 2810 09066 Z87.891 Get LDCTGet [place] AAA at age 66 years Hyperlipidemia 50169624 E78.5 On rosuvastat in 40mg dailyGet labs Type 2 linnea betes mellitus without complication 592613600 E11.9 On metformin 1000mg bidOn trulicity will d/c this as his insurance is not paying for this, will start on MounjaroNo hx of MEN2 or MCT or thyroid or parathyroi d or pancreatic complaints Will bring the pen for teachingGe t labs Coronary arteriosclerosis 56428037 I25.10 On ASAOn amlodipine 10mg dailyOn plavixOn isosorbide ER 30mg dailyOn losartan-H CTZ 100-12.5mg dailyOn metoprolol 50mg bidOn NTG Sees cardiologi st Dr Berman Screening for malignant neoplasm of prostate 148058753 Z12.5 Vitamin D deficiency 347 91425 E55.9 Serum kam min B12 below reference range 626139306 R79.89 Benign pro static hyperplasia without outflow obstruction 614532323 N40.0 Seen on his c-scopeGet a referral to urologist Plaque psoriasis 09 L40.0 Sees dermatolog ist On SkyriziOn clobetasol Otitis media 34891628 H6 6.91 TM not red, mild redness of the post pharynxGet on augmentinN otify if not better [id number] Freddy zhou MD [facility] [address] [facility] [address] [place] [address] 2024 16:34:14 2024 18:01:35 Type 2 diabetes mellitus without complication 163685080 E11.9 On metformin 1000mg bidOn trulicity will d/c this as his insurance is not paying for this, will start on MounjaroNo hx of MEN2 or MCT or thyroid or parathyroi d or pancreatic complaints Will bring the pen for teachingGe t labs OV 2024 :On Mounjaro, all side effects explained, demonstrat ed the use of the pen, must hydrate and take his supplement sIs to see Dr Zuleta 08/25/2024 Screening - NAD 25075754 3 Z13.9 C-scope: Dr Amber Gilliam MD 06/11/2024 , next in 6 years Get yearly flu shotGet tdap if not doneCan do shingrix vaccineCan do COVID 19 boostersGe t RSV vaccine RTC in 3 months, do labs, ER if worse, he did verbalize his understand ing of the above Ex-cigarette smoker 2810 79549 Z87.891 Get LDCTGet [place] AAA at age 66 years Hyperlipidemia 14867431 E78.5 On rosuvastat in 40mg dailyGet labs Coronary arteriosclerosis 10893296 I25.10 On ASAOn amlodipine 10mg dailyOn plavixOn isosorbide ER 30mg dailyOn losartan-H CTZ 100-12.5mg dailyOn metoprolol 50mg bidOn NTG Sees cardiologi st Dr Berman Vitamin D deficiency 347 04628 E55.9 Serum kam min B12 below reference range 883330867 R79.89 Benign pro static hyperplasia without outflow obstruction 155485535 N40.0 Seen on his c-scopeGet a referral to urologist, will see Dr Amaya 08/20/2024 Plaque psoriasis 09 L40.0 Sees dermatolog ist On SkyriziOn clobetasol [id number] Brian Amaya MD [facility] [address] [place] [address] 08/20/2024 16:04:43 08/20/2024 16:36:54 Benign prostatic hyperplasia with outflow obstruction 051982109 N40.1 [id number] Cameron Zuleta DPM [facility] [place] [address] [address] [place] [address] 08/25/2024 15:52:10 08/26/2024 16:40:41 Peripheral neuropathy due to type 2 diabetes mellitus 1935342155 107 E11.42 Pain in right foot 61495 77376 39029 M79.639 [id number] Cameron Zuleta DPM [facility] [place] [address] [address] [place] [address] 08/31/2024 16:20:55 09/13/2024 10:26:06 [id number] Cameron Zuleta DPM [facility] [place] [address] [address] 09/14/2024 16:13:02 09/15/2024 15:01:04 [id number] Freddy zhou MD [facility] [address] [place] [address] 12/01/2024 17:11:55 12/01/2024 17:49:35 Type 2 diabetes mellitus without complication 534456786 E11.9 On metformin 1000mg bidOn trulicity will d/c this as his insurance is not paying for this, will start on MounjaroNo hx of MEN2 or MCT or thyroid or parathyroi d or pancreatic complaints Will bring the pen for teachingGe t labs OV 2024 :On Mounjaro, all side effects explained, demonstrat ed the use of the pen, must hydrate and take his supplement sIs to see Dr Zuleta 08/25/2024 OV 12/01/2024 :On metformin 1000mg dailyOn Mounjaro 5mg weeklyOn losartan-H CTZGet labs Screening - NAD 76215333 3 Z13.9 C-scope: Dr Amber Gilliam MD 06/11/2024 , next in 6 years Get yearly flu shotGet tdap if not doneCan do shingrix vaccineCan do COVID 19 boostersGe t RSV vaccine RTC in 3 months, do labs, ER if worse, he did verbalize his understand ing of the above Ex-cigarette smoker 2810 91977 Z87.891 LDCT 08/25/2024 Get [place] AAA at age 66 years Hyperlipidemia 55463011 E78.5 On rosuvastat in 40mg dailyGet labs Coronary arteriosclerosis 10282170 I25.10 On ASAOn amlodipine 10mg dailyOn plavixOn isosorbide ER 30mg dailyOn losartan-H CTZ 100-12.5mg dailyOn metoprolol 50mg bidOn NTG Sees cardiologi st Dr Berman Vitamin D deficiency 347 76406 E55.9 Serum kam min B12 below reference range 396882663 R79.89 Benign pro static hyperplasia without outflow obstruction 500845104 N40.0 Seen on his c-scopeGet a referral to urologist, will see Dr Amaya 08/20/2024 Plaque psoriasis 3105241 09 L40.0 Sees dermatolog ist On SkyriziOn clobetasol Upper resp iratory infection 32958875 J06.9 Has noted sinus drainage and congestion Does use OTC flonase and has not had much relief, did have the flu, wants to get an antibiotic Will start on augmentin, notify if not better, ER if worse [id number] Freddy zhou MD [facility] [address] [facility] [address] [place] [address] 03/30/2025 16:43:06 03/30/2025 18:09:04 Type 2 diabetes mellitus without complication 855707395 E11.9 No hx of MEN2 or MCT or thyroid or parathyroi d or pancreatic complaints Hydrate and take supplement s On metformin 1000mg daily, d/c 03/30/2025 On Mounjaro 5mg weeklyOn losartan-H CTZGet labs Screening - NAD 44916354 3 Z13.9 C-scope: Dr Amber Gilliam MD 06/11/2024 , next in 6 years Get yearly flu shotGet tdap if not doneCan do shingrix vaccineCan do COVID 19 boostersGe t RSV vaccine RTC in 3 months, do labs, ER if worse, he did verbalize his understand ing of the above Ex-cigarette smoker 2810 59501 Z87.891 LDCT 08/25/2024 Get [place] AAA at age 66 years Hyperlipidemia 53284112 E78.5 On rosuvastat in 40mg daily, d/cGet on atorvastat in 80mg dailyMore diet and exercise Get labs Coronary arteriosclerosis 61796774 I25.10 On ASAOn amlodipine 10mg dailyOn plavixOn isosorbide ER 30mg daily, increased by Dr Berman to 60mg daily 03/18/2025 On losartan-H CTZ 100-12.5mg dailyOn metoprolol 50mg bidOn NTG Sees cardiologi st Dr Berman, last 03/18/2025 and to wear 48 hour Holter and f/u in 4 months Vitamin D deficiency 347 21734 E55.9 Serum kam min B12 below reference range 196962692 R79.89 Benign pro static hyperplasia without outflow obstruction 693620446 N40.0 Seen on his c-scopeGet a referral to urologist Plaque psoriasis 7632367 09 L40.0 Sees dermatolog ist On SkyriziOn clobetasol Chronic ki dney disease 660211461 N18.9 [address]48[address] Refer to nephrologi st Liver enzy mes level above reference range 837131534 R74.8 [id number] Get labs and US liver Pain of hip region 57367 002 M25.551 M25.552 [id number] Get a referral Dr Lopez [id number] Les Lopez MD [facility] Kayleen Osorio [address] [place] [address] 04/06/2025 15:25:01 04/06/2025 16:26:40 Pain of hip region 51797721 M25.551 M25.552 [id number] Freddy zhou MD [facility] [address] [facility] [address] [place] [address] 06/29/2025 16:53:57 06/29/2025 18:15:47 Type 2 diabetes mellitus without complication 362208273 E11.9 No hx of MEN2 or MCT or thyroid or parathyroi d or pancreatic complaints Hydrate and take supplement s On metformin 1000mg daily, d/c 03/30/2025 On Mounjaro 5mg weekly, will increase to 7.5mg weekly, does wellOn losartan-H CTZGet labs Screening - NAD 49042001 3 Z13.9 C-scope: Dr Amber Gilliam MD 06/11/2024 , next in 6 years Get yearly flu shotGet tdap if not doneCan do shingrix vaccineCan do COVID 19 boostersGe t RSV vaccine RTC in 3 months, do labs, ER if worse, he did verbalize his understand ing of the above Ex-cigarette smoker 2810 64342 Z87.891 LDCT 08/25/2024 Get [place] AAA at age 66 years Hyperlipidemia 59531156 E78.5 On rosuvastat in 40mg daily, d/cNot on atorvastat in 80mg dailyOn fenofibrat eMore diet and exercise Get labs Coronary arteriosclerosis 09626069 I25.10 On ASAOn amlodipine 10mg dailyOn plavixOn isosorbide ER 30mg daily, increased by Dr Berman to 60mg daily 03/18/2025 On losartan-H CTZ 100-12.5mg dailyOn metoprolol 50mg bidOn NTG Sees cardiologi st Dr Berman Vitamin D deficiency 347 42439 E55.9 Serum kam min B12 below reference range 107087106 R79.89 Benign pro static hyperplasia without outflow obstruction 066198482 N40.0 Seen on his c-scopeOn flomax bidSees [place] [employer] Plaque psoriasis 1278473 09 L40.0 Sees dermatolog ist On SkyriziOn clobetasol Chronic ki dney disease 948589172 N18.9 [id number] Refer to nephrologi st Liver enzy mes level above reference range 607287631 R74.8 [id number] Get labsUS liver: 04/28/2025 : Fatty liver Pain of hip region 12189 002 M25.551 M25.552 [id number] Get a referral [address] Lopez Daytime somnolence 44772 97217 00 G47.19 [id number] See pulmonary Disorder o f respiratory system suspected 622231956 R29.818 [id number] See pulmonary Health Concerns Section Related Observation LastModified by Organization Detai ls LastModified Time None Recorded Concern Status LastModified by Organization Details LastModified Time None Recorded Advance Directives Directive None Recorded Payers Insurance Date Sequence Insurance Name Policy Number Policy Dsouza Covered Member ID Dsouza Member ID Guarantor Name 06/27/2025 1 [place] 113 Alberto Cristina [id number] Alberto Cristina Notes Date Note Type Note Provider Name and Address Organization Details Recorded Time 09/14/2024 text/html Pt RTC for c/o neuropathies sherrell LE, 80% improved w/ previous injections trigger sherrell. Pt is very satisfied at this time and conducting normal activity and WB w/ very little pain. Cameron Zuleta DPM [address], [place], [address], [employer] 09/15/2024 13:08:25 12/01/2024 text/html OV 08/05/2024: Here to establish care Present Hx:Yoseph asisEx smoker Here to discuss above and get labs, he has noted also R ear ache, no ear d/c, no fevers or chills, no dizziness OV 2024: Here to discuss his use of Mounjaro, he feels well, he did do the labs and he did bring the pen to the office OV 12/01/2024: Here for his f/u apt, he has noted some URI sx, nasal and sinus congestion, no fevers or chills, no chest pain or SOB, he does see his cytotechnologist/histotechnologist Fredyd Simon MD [address], [place], [address], [employer] [facility] [employer] 12/01/2024 17:50:32 03/30/2025 text/html OV 08/05/2024: Here to establish care Present Hx:Yoseph asisEx smoker Here to discuss above and get labs, he has noted also R ear ache, no ear d/c, no fevers or chills, no dizziness OV 2024: Here to discuss his use of Mounjaro, he feels well, he did do the labs and he did bring the pen to the office OV 12/01/2024: Here for his f/u apt, he has noted some URI sx, nasal and sinus congestion, no fevers or chills, no chest pain or SOB, he does see his cytotechnologist/histotechnologist OV 03/30/2025: Here for his f/u apt, he is doing well today, he did do the labsHas noted some sherrell hip pain states that it occurs with walking Freddy Simon MD [address], [address], [place], [address], Join The Wellness Team [facility] [employer] 04/08/2025 15:12:13 06/29/2025 text/html OV 08/05/2024: Here to establish care Present Hx:ELEAZARMIHarshaori asisEx smoker Here to discuss above and get labs, he has noted also R ear ache, no ear d/c, no fevers or chills, no dizziness OV 2024: Here to discuss his use of Mounjaro, he feels well, he did do the labs and he did bring the pen to the office OV 12/01/2024: Here for his f/u apt, he has noted some URI sx, nasal and sinus congestion, no fevers or chills, no chest pain or SOB, he does see his cytotechnologist/histotechnologist OV 03/30/2025: Here for his f/u apt, he is doing well today, he did do the labsHas noted some sherrell hip pain states that it occurs with walking OV 06/29/2025: Here for his f/u aptHe is doing well todayHe is c/o EDSHe did see urology and nephrology Freddy Simon MD [address], [place], [address], In [facility] [employer] 06/29/2025 18:21:14
--- NOTE | 2025-07-08 11:00 | PC.NURSE ---
Patient denies all chest pain
--- NOTE | 2025-07-08 12:31 | ECG_ITS ---
Test Date: 2025-07-08 12:39:51 Measurements Intervals [place] Rate: 64 P: 26 MD: 133 QRS: -40 QRSD: 114 T: 8 QT: 403 QTc: 419 Interpretive Statements SINUS RHYTHM WITH OCCASIONAL VENTRICULAR PREMATURE COMPLEXES LEFT AXIS DEVIATION INCOMPLETE RIGHT BUNDLE BRANCH BLOCK POSSIBLE ANTERIOR MYOCARDIAL INFARCTION , OF INDETERMINATE AGE BORDERLINE ST-T WAVE ABNORMALITY- ANT/HIGH LAT LEADS BASELINE ARTIFACT- I, II, III, AVR, AVL, AVF ABNORMAL ECG Compared to ECG 07/08/2025 09:26:01 NO SIGNIFICANT CHANGE Electronically Signed On 07-08-2025 12:45:43 CDT by Per Hernandez D.O.
[2025-07-08 13:03] LABS: Troponin I < 0.012 ng/mL (0.000-0.034)
--- NOTE | 2025-07-08 15:20 | ECG_ITS ---
Test Date: 2025-07-08 15:25:02 Measurements Intervals [place] Rate: 64 P: 99 IA: 166 QRS: -42 QRSD: 92 T: 9 QT: 336 QTc: 347 Interpretive Statements SINUS RHYTHM WITH SINUS ARRHYTHMIA INCOMPLETE RIGHT BUNDLE BRANCH BLOCK CONSIDER ANTERIOR INFARCT, AGE INDETERMINATE BORDERLINE T WAVE ABNORMALITY- ANTERIOR LEADS BASELINE ARTIFACT- I, II, III, AVR, AVL, AVF ABNORMAL ECG Compared to ECG 07/08/2025 12:39:51 Ventricular premature complex(es) no longer present Electronically Signed On 07-08-2025 15:42:07 CDT by Per Hernandez D.O.
[2025-07-08 15:51] LABS: Troponin I < 0.012 ng/mL (0.000-0.034)
--- NOTE | 2025-07-08 15:54 | PM.CNCAR ---
Assessment and Plan Assessment and plan (1) Chest pain: Code(s): R07.9 - Chest pain, unspecified Status: Acute (2) CAD (coronary artery disease): Code(s): I25.10 - Atherosclerotic heart disease of [place] coronary artery without angina pectoris Status: Acute (3) Benign hypertension with chronic kidney disease: Code(s): I12.9 - Hypertensive chronic kidney disease with stage 1 through stage 4 chronic kidney disease, or unspecified chronic kidney disease Status: Acute (4) Hyperlipidemia: Code(s): E78.5 - Hyperlipidemia, unspecified Status: Acute (5) Diabetes mellitus with chronic kidney disease: Code(s): E11.22 - Type 2 diabetes mellitus with diabetic chronic kidney disease Status: Acute Plan Chest pain. concerning for ACS as patient has anginal equivalent in patient with known CAD. His troponin have been negative x 2 and EKG demonstrates NSR with no acute ST/T wave changes. His CXR is with no acute cardiopulmonary process. His lipase is mildly elevated would check amylase as well. Would resume patient home aspirin 81 mg, metoprolol 50 mg BID, plavix 75 mg and atorvastatin 80 mg daily. Add isosorbide 30 mg daily. Will plan for LHC on Friday at 7:15. Can use therapeutic lovenox 1mg/kg BID in setting of ACS. Will do f/u echo to look for any new LV dysfunction or WMA. Mildly elevated LFTs and lipase. Will check amylase. Further evaluation and management as per primary team. History of CAD. With history of stents and CABG. Last cath in 2022 showed patent GOLD to the LAD, patent SVG to the diagonal and patent SVG to the posterior lateral. His pLAD had 60% stenosis, mLAD 70% stenosis and LPDA 60-70% stenosis. He had RCA disease and had stents x 2 placed in pRCA, with 3 covered stents to the RCA to seal perforation. Last echo showed EF of 60%. continue aspirin, plavix and atorvastatin Hypertension. Blood pressure with reasonable control would resume home meds and monitor Hyperlipidemia. On atorvastatin. Would update lipid panel Chronic kidney disease. Cr of 1.53 today. Appears at baseline. Will monitor. May benefit from IV hydration prior to LHC Diabetes Mellitus. glycemic control per primary team Obesity. Weight loss encouraged Plan: will check echo check lipid panel check amylase lovenox 1mg/kg BID in setting of ACS plan for LHC on Friday or sooner if needed. History of Present Illness History of Present Illness Consult date/time: 07/08/25 15:54 Requesting physician: Hubert Arambula MD Consult reason: chest pain Reason For Visit: chest pain Narrative: Alberto Schroeder is a 64 y.o. male with a known history of CAD s/p stents and CABG. He presents to the ER today with complaints of mid sternal chest pressure. He reports this am he got up and had dizziness and chest discomfort. Discomfort radiated up the right side of his jaw and into the left arm. He states dizziness was made worse with position changes. He denies any associated shortness of breath or palpitations. No diaphoresis. Did have some nausea, but no vomiting. Reports symptoms were similar to how he felt prior to his last cardiac cath in 2022 when he had stents. He states he has been compliant with all medications and after taking his isosorbide this am pain lessened. He reports that he has been having this chest pain on and off for the last couple of months. Pain is made worse with exertion and better with rest. Review of Systems Review of Systems: All systems reviewed & are unremarkable except as noted in HPI and below PMFSH Past Medical History Medical History Chronic renal disease, stage 3, moderately decreased glomerular filtration rate (GFR) between 30-59 mL/min/1.73 square meter Hemorrhage following tonsillectomy and adenoidectomy Psoriatic arthritis Arthritis Chronic pain syndrome Myocardial infarction Hypertension Hyperlipidemia Diabetes CAD (coronary artery disease) Bloating Irritable bowel syndrome with diarrhea Colon cancer screening GERD (gastroesophageal reflux disease) Psoriasis Alternating constipation and diarrhea Surgical History Surgical History History of foot surgery History of eyelid surgery Hx of cholecystectomy S/P CABG x 3 Stented coronary artery Family History Family History Father Family history of heart disease in male family member before age 55 Diabetes mellitus Family history of diabetes mellitus in first degree relative Hypertension Heart disease Acute myocardial infarction Mother Diabetes mellitus Family history of diabetes mellitus in first degree relative Hyperlipemia Hypertension Heart disease Acute myocardial infarction Grandparent Family history of malignant neoplasm Other Family history of allergic disorder Family history of tuberculosis Social History Social History Social History: the patient works at [employer] 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 He has 3 children. The patient quit smoking in approximately 2015. He lives with his Linda and she is the durable power claims attorney for healthcare. He denies any marijuana alcohol or illicit drugs. Code status full code Smoking packs per day: 0.75 Smoking cigarettes per day: 15.0 Years smoked: 30 Smoking pack-years: 22.50 Smoking status: Former smoker Tobacco type: cigarettes Second hand tobacco smoke exposure: No Additional smoking assessment comments: 3/ PPD for 40 years Alcohol intake: never Drinks per week: 1 Alcohol use details: socially Substance use: never Substance use type: does not use Lack of Transportation: No Lack of Food: Never True Current Housing: I Have Housing Concerned About Future Housing: No Difficulty Paying Gas/Electric Bills: No Difficulty Paying for Meds: No Currently Unemployed: No Education: Decline to Answer Difficulty w/ Childcare or Family Care: Decline to Answer Living arrangements: with family Additional living arrangements comments: with linda Gender identity (if verbalized by the patient): Male Sexual Orientation (if Verbalized by the Patient): Straight or Heterosexual Spiritual care concerns: No Meds Home Medications and Allergies Home Medications ?Medication ?Instructions ?Recorded ?Confirmed ?Type amlodipine 10 mg tablet 10 mg PO DAILY 02/08/21 05/16/25 History aspirin 81 mg tablet,delayed 81 mg PO DAILY 02/08/21 05/16/25 History release fenofibrate 40 mg tablet 48 mg PO HS 02/08/21 05/16/25 History losartan 100 1 tablet PO DAILY 02/08/21 05/16/25 History mg-hydrochlorothiazide 12.5 mg tablet metoprolol tartrate 50 mg tablet 50 mg PO Q12H 02/08/21 05/16/25 History clopidogrel 75 mg tablet 75 mg PO DAILY 07/20/21 05/16/25 History metformin 500 mg tablet 1,000 mg PO BID 07/20/21 05/16/25 History ergocalciferol (vitamin D2) 1,000 1,000 unit PO DAILY 08/08/22 05/16/25 History unit capsule omeprazole 20 mg capsule,delayed 20 mg PO DAILY 08/08/22 05/16/25 History release atorvastatin 80 mg tablet 80 mg PO DAILY 05/16/25 05/16/25 History meloxicam 15 mg tablet 15 mg PO DAILY 05/16/25 05/16/25 History risankizumab-rzaa 150 mg/mL mg subcut ONCE 05/16/25 05/16/25 History subcutaneous pen injector (Skyrizi) tirzepatide 5 mg/0.5 mL mg subcut 05/16/25 05/16/25 History subcutaneous pen injector (Mounjaro) Allergies Allergy/AdvReac Type Severity Reaction Status Date / Time lisinopril AdvReac Cough Verified 07/08/25 09:26 Vital Signs Vital Signs - 24 hr 07/08/25 09:22 07/08/25 09:26 07/08/25 09:28 Temperature 36.5 C Pulse Rate 69 65 Respiratory Rate 19 Blood Pressure 164/67 H Pulse Oximetry 99 Oxygen Delivery Room Air 07/08/25 09:28 07/08/25 11:13 Temperature Pulse Rate 59 L Respiratory Rate 18 Blood Pressure 119/58 L Pulse Oximetry 97 100 Oxygen Delivery Room Air Exam Const: General: comfortable and no acute distress Eyes: General: appearance normal, both eyes and all related structures Neck: Neck: supple and no JVD Thyroid: thyroid normal Carotids: no bruits Resp: Effort & Inspection: normal respiratory effort Auscultation: clear to auscultation bilaterally Cardio: Rate: regular rate Rhythm: regular rhythm Heart sounds: no gallops, no murmurs and no rubs Skin: General skin exam: normal color Lesions: no lesions noted Extrem: General: normal to inspection Psych: Mental Status: mental status grossly normal Affect: normal affect Results Labs and Meds 07/08/25 09:32 07/08/25 09:32 Lab results: Cardiac Enzymes 07/08/25 07/08/25 07/08/25 Range/Units 09:32 12:35 15:25 AST 85 H (17-59) U/L Troponin I < 0.012 < 0.012 < 0.012 (0.000-0.034) ng/mL Coagulation 07/08/25 Range/Units 09:32 PT 13.1 (11.1-14.7) Seconds APTT 26.4 (22.3-36.8) Seconds CBC 07/08/25 Range/Units 09:32 WBC 6.4 (4.5-10.0) K/mm3 RBC 4.75 (4.6-6.20) M/mm3 Hgb 12.0 L (14.0-18.0) g/dL Hct 38.1 L (42.0-52.0) % Plt Count 259 (150-375) k/mm3 Lymph # (Auto) 1.94 (0.9-3.2) K/mm3 [place] # (Auto) 0.5 (0.1-0.6) K/mm3 Eos # (Auto) 0.2 (0-0.3) K/mm3 Baso # (Auto) 0.1 (0.0-0.1) K/mm3 Comprehensive Metabolic Panel 07/08/25 Range/Units 09:32 Sodium 135 L (137-145) mmol/L Potassium 4.5 (3.4-5.0) mmol/L Chloride 102 (98-107) mmol/L Carbon Dioxide 20 L (22-30) mmol/L BUN 30 H D (9-20) mg/dL Creatinine 1.53 H (0.7-1.3) mg/dL Glucose 216 H (65-110) mg/dL Calcium 9.9 (8.4-10.2) mg/dL AST 85 H (17-59) U/L ALT 96 H (6-50) U/L Alkaline Phosphatase 74 (38-126) U/L Total Protein 8.7 H (6.3-8.2) g/dL Albumin 4.8 (3.5-5.1) g/dL Patient Weight 07/08/25 23:59 Weight 98.9 kg Imaging and Cardiology Echo: report reviewed (2023 EF of 60% with mild MR, mild AR and mild TR ) Cardiac cath: report reviewed (07/29/23 with ALLEN to distal proximal RCA with overlapping proximal RCA stent, 3 covered stents in pRCA to sealed perforation, pLAD 60%, mLAD 70%, LPDA 60-70%, patent GOLD to LAD, patent SVG to diagonal, patent SVG to posterior lateral ) EKG Interpretation EKG: sinus rhythm and no acute changes EKG shows: sinus rhythm
--- NOTE | 2025-07-08 16:40 | PC.NURSE ---
lab called to add on amylase
[2025-07-08 16:47] LABS: Amylase 104 U/L (30-110)
--- NOTE | 2025-07-08 18:34 | ADMGEN ---
This patient, Alberto Schroeder, was admitted to IMU Room 200-01. Patient/family oriented to hospital policies and general routines including ID bracelet, bed and alarms, visiting hours, pain management, procedures, bathroom and other care routines, personal items, smoking policy, room service/diet, and visiting hours. Information on how to activate the Rapid Response Team has been discussed. Patient/Family are encouraged to report perceived risks to care and to ask questions if they do not understand what they are told or what they should do.
[2025-07-08 19:12] LABS: Cholesterol 150 mg/dL (0-200); HDL Direct 42 mg/dL; Triglycerides 226 mg/dL (<150)
--- NOTE | 2025-07-08 20:45 | PM.IMHP ---
H&P: HPI History of Present Illness Date/Time: 07/08/25 20:45 Chief Complaint: Chest pain Narrative: This is a 64-year-old male patient with a history of coronary artery disease she is status post 3 vessel CABG in 2020, one stent 2012, and 5 stents in 2022. The patient came into the emergency room today to be evaluated for chest pain that started last night. The patient stated that he turned over in bed to 30 and he developed left chest pain with left arm and neck pain as well. His H&H was 12.0 in 38.1. Sodium slightly low at 135. BUN 30 and creatinine 1.53. GFR is 46 and blood glucose 216. Troponins are negative x 3. Triglycerides are 226. Lipase 404. Chest x-ray was read as no acute cardiopulmonary abnormality. EKG was read as sinus rhythm with sinus arrhythmia incomplete right bundle branch block. Consider anterior infarct, age indeterminate. Borderline T-wave abnormal T-anterior leads The patient was given subcu Lovenox, aspirin, morphine, and nitroglycerin. Cardiology has been consulted. The patient seated that he has constant pressure in his chest at this time. He stated that the pain gets worse when he gets up and moves around or gross the bathroom. He stated that the pain comes and goes when he moves. He stated that than left neck pain is pretty much gone and has some mild left arm pain. The patient is being admitted to observation status on 07/08/2025 Review of Systems Constitutional: Constitutional: Reports as per HPI and Reports no additional constitutional complaints Eyes: Eyes: Reports as per HPI and Reports no additional eye complaints ENT: Reports system reviewed and no additional complaints, except as documented and Reports Normal hearing present Cardiovascular: Cardiovascular: Reports no additional cardiovascular complaints Respiratory: Respiratory: Reports as per HPI and Reports no additional respiratory complaints Gastrointestinal: Gastrointestinal: Reports as per HPI and Reports no additional gastrointestinal complaints Musculoskeletal: Musculoskeletal: Reports no additional musculoskeletal complaints Integumentary/Breasts: Skin/Breast: Reports system reviewed and no additional complaints, except as docu Neurologic: Reports system reviewed and no additional complaints, except as documented and Reports Normal hearing present Psychiatric: Psychiatric: Reports no additional psychiatric complaints and Reports as per HPI Hematologic/Lymphatic: Hematologic/Lymphatic: Reports no additional hematologic/lymphatic complaints Allergic/Immunologic: Allergic/Immunologic: Reports no additional allergic/immunologic complaints [facility] Past Medical History Medical History (Updated 07/09/25 @ 11:00 by Dany Jack MD) Chronic renal disease, stage 3, moderately decreased glomerular filtration rate (GFR) between 30-59 mL/min/1.73 square meter Psoriatic arthritis Arthritis Chronic pain syndrome Myocardial infarction Hypertension Hyperlipidemia Diabetes CAD (coronary artery disease) Bloating Irritable bowel syndrome with diarrhea Colon cancer screening GERD (gastroesophageal reflux disease) Psoriasis Alternating constipation and diarrhea Surgical History Surgical History (Updated 07/09/25 @ 11:00 by Dany Jack MD) H/O cervical spinal arthrodesis 2009 History of tonsillectomy and adenoidectomy History of foot surgery History of eyelid surgery Hx of cholecystectomy S/P CABG x 3 2020 Stented coronary artery 1 stent in 2012 and 5 stents in 2022 Family History Family History Father Family history of heart disease in male family member before age 55 Diabetes mellitus Family history of diabetes mellitus in first degree relative Hypertension Heart disease Acute myocardial infarction Mother Diabetes mellitus Family history of diabetes mellitus in first degree relative Hyperlipemia Hypertension Heart disease Acute myocardial infarction Grandparent Family history of malignant neoplasm Other Family history of allergic disorder Family history of tuberculosis Social History Social History Social History: the patient works at [employer] 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 He has 3 children. The patient quit smoking in approximately 2015. He lives with his Linda and she is the durable power contract attorney for healthcare. He denies any marijuana alcohol or illicit drugs. Code status full code Smoking packs per day: 0.75 Smoking cigarettes per day: 15.0 Years smoked: 30 Smoking pack-years: 22.50 Smoking status: Former smoker Tobacco type: cigarettes Second hand tobacco smoke exposure: No Smoking end date: 09/24/16 Additional smoking assessment comments: 3/4 PPD for 40 years Alcohol intake: never Drinks per week: 1 Alcohol use details: socially Substance use: never Substance use type: does not use Lack of Transportation: No Lack of Food: Never True Current Housing: I Have Housing Concerned About Future Housing: No Difficulty Paying Gas/Electric Bills: No Difficulty Paying for Meds: No Currently Unemployed: No Education: Decline to Answer Difficulty w/ Childcare or Family Care: Decline to Answer Living arrangements: with family Additional living arrangements comments: with linda Gender identity (if verbalized by the patient): Male Sexual Orientation (if Verbalized by the Patient): Straight or Heterosexual Spiritual care concerns: No Meds Home Medications and Allergies Home Medications ?Medication ?Instructions ?Recorded ?Confirmed ?Type amlodipine 10 mg tablet 10 mg PO DAILY 02/08/21 07/08/25 History aspirin 81 mg tablet,delayed 81 mg PO DAILY 02/08/21 07/08/25 History release fenofibrate 40 mg tablet 48 mg PO HS 02/08/21 07/08/25 History losartan 100 1 tablet PO DAILY 02/08/21 07/08/25 History mg-hydrochlorothiazide 12.5 mg tablet metoprolol tartrate 50 mg tablet 50 mg PO Q12H 02/08/21 07/08/25 History clopidogrel 75 mg tablet 75 mg PO DAILY 07/20/21 07/08/25 History metformin 500 mg tablet 1,000 mg PO BID 07/20/21 07/08/25 History ergocalciferol (vitamin D2) 1,000 1,000 unit PO DAILY 08/08/22 07/08/25 History unit capsule omeprazole 20 mg capsule,delayed 20 mg PO DAILY 08/08/22 07/08/25 History release atorvastatin 80 mg tablet 80 mg PO DAILY 05/16/25 07/08/25 History meloxicam 15 mg tablet 15 mg PO DAILY 05/16/25 07/08/25 History risankizumab-rzaa 150 mg/mL 150 mg subcut ONCE 05/16/25 07/08/25 History subcutaneous pen injector (Skyrizi) tirzepatide 5 mg/0.5 mL 5 mg subcut WEEKLY 05/16/25 07/08/25 History subcutaneous pen injector (Silveriounjaro) Allergies Allergy/AdvReac Type Severity Reaction Status Date / Time lisinopril AdvReac Cough Verified 07/08/25 18:40 Vital Signs Vital Signs - 24 hr 07/08/25 09:22 07/08/25 09:26 07/08/25 09:28 Temperature 97.7 F Pulse Rate 69 65 Respiratory Rate 19 Blood Pressure 164/67 H Pulse Oximetry 99 Oxygen Delivery Room Air 07/08/25 09:28 07/08/25 11:13 07/08/25 16:10 Temperature Pulse Rate 59 L 82 Respiratory Rate 18 18 Blood Pressure 119/58 L 140/61 Pulse Oximetry 97 100 99 Oxygen Delivery Room Air 07/08/25 17:38 07/08/25 19:00 07/08/25 20:09 Temperature 98.2 F 97.9 F Pulse Rate 71 69 82 Respiratory Rate 18 14 15 Blood Pressure 138/53 L 173/70 H 150/44 H Pulse Oximetry 99 100 97 Oxygen Delivery Exam Const: General: cooperative, healthy appearing, comfortable, no acute distress, well developed, awake, Physically active, average body habitus and well nourished Nutritional Appearance: average body habitus and well nourished Orientation/consciousness: oriented to person, oriented to place, oriented to time and patient oriented x3 Limitations: no limitations HENMT: Head: normal to inspection, No palpable skull fracture present, normocephalic, atraumatic and abrasion Ears: hearing grossly normal bilaterally and external ears normal Eyes: General: appearance normal, both eyes and all related structures Alignment and Position: alignment normal Periorbital: periorbital findings normal Eyelids: eyelids normal Neck: Neck: normal visual inspection, full ROM and no lymphadenopathy Chest: Chest palpation & inspection: normal inspection of the chest Resp: Effort & Inspection: normal respiratory effort Auscultation: clear to auscultation bilaterally Cardio: Palpation: normal PMI Rate: regular rate Rhythm: regular rhythm Heart sounds: S1 normal heart sound present and S2 normal heart sound present Peripheral pulses: Peripheral pulses 2+ throughout GI: Inspection: normal to inspection Percussion: Yes normal to percussion Auscultation: normal bowel sounds Rectal Exam: deferred : General: Yes no CVA tenderness Back/Spine/Pelvis: Back: no CVA tenderness Cervical Spine: cervical ROM normal Skin: General skin exam: normal color Lesions: no lesions Rashes: no rashes Trauma: no lacerations or abrasions Wounds: no wounds Hair: normal Nails: normal Neuro: General: oriented to person, oriented to place, oriented to time and patient oriented x3 Cranial nerves: Yes Equal, round and reactive pupils present and Yes Normal hearing present Cognition (Neuro): normal cognition Speech: normal speech Gait exam (Neuro): Normal gait present Motor exam (neuro): 5/5 motor strength present throughout Sensory Exam: normal sensation Extrem: General: normal to inspection Right upper extremity: normal to inspection and shoulder/upper arm Left upper extremity: normal to inspection and shoulder/upper arm Right lower extremity: normal to inspection Left lower extremity: normal to inspection Psych: Appearance: grossly normal Mental Status: mental status grossly normal Speech and movement: Normal speech and movement present Affect: normal affect Attitude: cooperative Thought process: Normal thought process present Thought content: Yes Normal thought content present Insight: Good insight present (Psych) Judgement: Good judgement present (Psych) H&P: Results Labs Labs: Short CBC 07/08/25 Range/Units 09:32 WBC 6.4 (4.5-10.0) K/mm3 Hgb 12.0 L (14.0-18.0) g/dL Hct 38.1 L (42.0-52.0) % Plt Count 259 (150-375) k/mm3 BMP 07/08/25 09:32 Sodium 135 L Potassium 4.5 Chloride 102 Carbon Dioxide 20 L BUN 30 H D Creatinine 1.53 H Glucose 216 H Calcium 9.9 Cardiac Enzymes 07/08/25 07/08/25 07/08/25 Range/Units 09:32 12:35 15:25 Troponin I < 0.012 < 0.012 < 0.012 (0.000-0.034) ng/mL Liver Function 07/08/25 Range/Units 09:32 Total Bilirubin 0.5 (0.2-1.3) mg/dL AST 85 H (17-59) U/L ALT 96 H (6-50) U/L Alkaline Phosphatase 74 (38-126) U/L Albumin 4.8 (3.5-5.1) g/dL ECG Interpretation: Test Date: 2025-07-08 15:25:02 Measurements Intervals [place] Rate: 64 P: 99 AR: 166 QRS: -42 QRSD: 92 T: 9 QT: 336 QTc: 347 Interpretive Statements SINUS RHYTHM WITH SINUS ARRHYTHMIA INCOMPLETE RIGHT BUNDLE BRANCH BLOCK CONSIDER ANTERIOR INFARCT, AGE INDETERMINATE BORDERLINE T WAVE ABNORMALITY- ANTERIOR LEADS BASELINE ARTIFACT- I, II, III, AVR, AVL, AVF ABNORMAL ECG Compared to ECG 07/08/2025 12:39:51 Ventricular premature complex(es) no longer present Imaging Chest x-ray: Radiologist's impression: Impressions Chest X-Ray 07/08/25 09:53 Impression: No acute cardiopulmonary abnormality. Assessment and Plan Assessment and plan (1) Chest pain: Code(s): R07.9 - Chest pain, unspecified Status: Acute Assessment and Plan: -cardiac enzymes have been negative x3. -cardiology has been consulted and it was recommended to resume patient's home medication of aspirin 81 mg, metoprolol 50 mg BID, plavix 75 mg and atorvastatin 80 mg daily. Add isosorbide 30 mg daily. Will plan for LHC on Friday at 7:15. Can use therapeutic lovenox 1mg/kg BID in setting of ACS. Will do f/u echo to look for any new LV dysfunction or WMA. -the patient has an extensive cardiac history with a 3 vessel CABG and a total of 6 stents.History of CAD. With history of stents and CABG. Last cath in 2022 showed patent GOLD to the LAD, patent SVG to the diagonal and patent SVG to the posterior lateral. His pLAD had 60% stenosis, mLAD 70% stenosis and LPDA 60-70% stenosis. He had RCA disease and had stents x 2 placed in pRCA, with 3 covered stents to the RCA to seal perforation. Last echo showed EF of 60%. continue aspirin, plavix and atorvastatin chronic kidney disease. Cr of 1.53 today. Appears at baseline. Will monitor. May benefit from IV hydration prior to LHC -the patient continues to have some discomfort when he is up moving around but becomes much less when he is laying still. -continue with Lovenox (2) CAD (coronary artery disease): Code(s): I25.10 - Atherosclerotic heart disease of [place] coronary artery without angina pectoris Status: Acute Assessment and Plan: -the patient has a total of 6 stents and 3 vessel CABG. Cardiology has seen the patient already and recommend that we continue the aspirin and Plavix. -continue atorvastatin (3) Hypertension: Code(s): I10 - Essential (primary) hypertension Status: Acute Assessment and Plan: -continue with amlodipine if blood pressure allows -I am holding losartan with hydrochlorothiazide due to renal function. -continue with metoprolol (4) Hyperlipidemia: Code(s): E78.5 - Hyperlipidemia, unspecified Status: Acute Assessment and Plan: -continue with atorvastatin (5) Diabetes mellitus with chronic kidney disease: Code(s): E11.22 - Type 2 diabetes mellitus with diabetic chronic kidney disease Status: Acute Assessment and Plan: -check A1c -hold mounjaro -the patient stated he no longer takes metformin. However will place an on hold as it is on his med list is he is having a possible cardiac catheterization on Friday. -Accu-Cheks AC and HS with sliding scale insulin. (6) Stage 3a chronic kidney disease: Code(s): N18.31 - Chronic kidney disease, stage 3a Status: Acute Assessment and Plan: -the patient stated that he was going to have a renal ultrasound next week. However since he is currently in the hospital 1 has been ordered. -nephrology consult with greatly be appreciated. The patient stated he typically sees Dr. Gonsalez -daily BMPs -am going to hold losartan and hydrochlorothiazide for today. -I would recommend that the patient receive IV fluids prior to going to catheterization. -his creatinine is 1.53 which appears to be his baseline. His BUN is 30 which is slightly higher than his baseline. His GFR is 46 which is within his baseline. Quality VTE Prophylaxis VTE prophylaxis: pharmacologic ordered
[2025-07-08] MEDS: ENOXAPARIN 100 MG/ML SYRINGE SUB-Q (21:17)
[2025-07-08] MEDS: METOPROLOL TARTRATE 50 MG TAB PO (21:52)
[2025-07-09] VITALS (20 sets, daily range): BP systolic 131–161; BP diastolic 57–61; PULSE 57–93; RESP 14–20; TEMP 36.3–36.8; O2SAT 95–100
--- NOTE | 2025-07-09 | ECHO_ITS ---
Patient Info Name: Alberto Schroeder Age: 64 years : 1960 Gender: Male Ht: 71 in Wt: 218 lbs BSA: 2.25 m2 HR: 68 bpm BP: 135 / 58 mmHg Technical Quality: Good Exam Date: 07/09/2025 8:35 AM Patient Status: I Admit Date: 07/08/2025 Exam Type: CA echo doppler color flow Complete two-dimensional, color flow and Doppler transthoracic echocardiogram is performed. Staff Referring Physician: Josefina Wu REHABILITATION PSYCHOLOGIST Underwear Hemmer: Elana Du Attending Provider: Andres Rivas Summary 1. Complete two-dimensional, color flow and Doppler transthoracic echocardiogram is performed. 2. Left ventricular systolic function is normal, estimated at 55-60. 3. The left ventricular diastolic function is normal. 4. There is mild aortic valve regurgitation. Left Ventricle Left ventricular chamber dimension is normal. Left ventricular systolic function is normal, estimated at 55-60. There is no increased left ventricular wall thickness. Left ventricular septal wall motion is normal. The left ventricular diastolic function is normal. Right Ventricle Right ventricular chamber dimension is normal. Right ventricular systolic function is normal. Left Atria Left atrial chamber dimension is normal. Right Atria Right atrial chamber dimension is normal. Aortic Valve The aortic valve is trileaflet. There is mild aortic valve sclerosis. There is no aortic valve stenosis. There is mild aortic valve regurgitation. Pulmonic Valve The pulmonic valve is normal. There is no pulmonic valve stenosis. There is no pulmonic regurgitation. Mitral Valve The mitral valve has normal leaflets. There is no mitral valve stenosis. There is no mitral valve regurgitation. Tricuspid Valve The tricuspid valve leaflets are normal. There is no significant tricuspid valve stenosis. There is no tricuspid valve regurgitation. Pericardium/Pleural The pericardium appears normal. There is no pericardial effusion. Inferior Vena Cava Normal inferior vena cava with >50% collapse upon inspiration consistent with normal right atrial pressure, 5 mmHg. Aorta The aortic root size at the sinus of Valsalva is normal. The prox ascending aorta size is normal. Left Ventricular Outflow Tract Name Value Normal LVOT 2D LVOT Diameter 2.0 cm LVOT Doppler LVOT Peak Velocity 140 cm/s LVOT Peak Gradient 8 mmHg LVOT Mean Gradient 4 mmHg LVOT VTI 31 cm LVOT Stroke Volume 93 ml LVOT CO 6.4 l/min LVOT CI 2.8 l/min/m2 Pulmonic Valve Name Value Normal RVOT Doppler RVOT Peak Velocity 73 cm/s RVOT Peak Gradient 2 mmHg PV Doppler PV Peak Velocity 96 cm/s PV Peak Gradient 4 mmHg Mitral Valve Name Value Normal MV Diastolic Function MV E Peak Velocity 101 cm/s MV A Peak Velocity 95 cm/s MV E/A 1.1 MV Decel Time (PW) 264 ms MV Annular TDI MV E/e' (Septal) 11.0 MV E/e' (Lateral) 9.0 MV E/e' (Average) 10.0 Tricuspid Valve Name Value Normal Estimated PAP/RSVP RA Pressure 5 mmHg <=5 Aortic Valve Name Value Normal AV Doppler AV Peak Velocity 152 cm/s AV Peak Gradient 9 mmHg AV Area (Cont Eq Az) 2.8 cm2 AV DI (Az) 0.92 AV Regurgitation 2D LVOT Area 3.0 cm2 Ventricles Name Value Normal LV Dimensions 2D/MM IVS Diastolic Thickness (2D) 1.1 cm 0.6-1.0 LVID Diastole (2D) 4.7 cm 4.2-5.8 LVIW Diastolic Thickness (2D) 1.2 cm 0.6-1.0 LVID Systole (2D) 3.1 cm 2.5-4.0 LVOT Diameter 2.0 cm LV Mass (2D Cubed) 189.98 g 88.00-224.00 LV Mass Index (2D Cubed) 84 g/m2 49-115 Relative Wall Thickness (2D) 0.50 <=0.42 LV Fractional Shortening/Ejection Fraction 2D/MM LV Fractional Shortening (2D) 33 % 25-43 LV EF (2D Teichholz) 61 % LV Diastolic Volume (4C MOD) 112 ml LV EF (4C MOD) 61 % LV Diastolic Volume (2C MOD) 96 ml LV EF (2C MOD) 54 % LV Diastolic Volume (BP MOD) 108 ml 62-150 LV Diastolic Volume Index (BP MOD) 48 ml/m2 34-74 LV Systolic Volume (BP MOD) 44 ml 21-61 LV Systolic Volume Index (BP MOD) 19 ml/m2 11-31 LV EF (BP MOD) 60 % 52-72 LV Diastolic Length (4C) 8.5 cm LV Systolic Length (4C) 7.6 cm LV Stroke Volume (4C MOD) 68 ml Atria Name Value Normal LA Dimensions LA Volume (4C A-L) 47 ml LA Volume (BP A-L) 53 ml RA Dimensions RA Systolic Major [place] Length (4C) 6.5 cm 2.1-2.7 RA Area (4C) 22.9 cm2 <=18.0 Report Signatures
[2025-07-09 04:10] LABS: Hematocrit 35.4 % (42.0-52.0); Hemoglobin 11.1 g/dL (14.0-18.0); Mean Corpuscular HGB Conc 31.4 g/dl (32-36); Mean Corpuscular Hemoglobin 25.3 pg (26-34); Mean Corpuscular Volume 80.6 fl (80-100); Platelet Count Result 238 k/mm3 (150-375); Red Blood Count 4.39 M/mm3 (4.6-6.20); White Blood Count 6.8 K/mm3 (4.5-10.0)
[2025-07-09 04:24] LABS: Anion Gap 11 mmol/L (4-12); Blood Urea Nitrogen 26 mg/dL (9-20); Calcium 9.2 mg/dL (8.4-10.2); Carbon Dioxide 21 mmol/L (22-30); Chloride 103 mmol/L (98-107); Estimated CRCL calculation 52 ml/min; Estimated Glomerular Filt Rate 51; Glucose 115 mg/dL (65-110); Lipase 233 U/L (23-300); Potassium 4.0 mmol/L (3.4-5.0); Sodium 135 mmol/L (137-145)
[2025-07-09 04:32] LABS: Hemoglobin A1C 7.1 % (<5.7)
[2025-07-09] MEDS: ATORVASTATIN 40 MG TABLET 80 MG PO (08:28)
[2025-07-09] MEDS: PANTOPRAZOLE SOD SESQUIHYDRATE 20 MG TAB PO (08:28)
[2025-07-09] MEDS: METOPROLOL TARTRATE 50 MG TAB PO ×2 (08:28→20:28)
[2025-07-09] MEDS: CLOPIDOGREL BISULFATE 75 MG TABLET PO (08:28)
[2025-07-09] MEDS: ENOXAPARIN 100 MG/ML SYRINGE SUB-Q ×2 (08:28→20:26)
[2025-07-09] MEDS: ASPIRIN 81 MG ENTERIC TABLET PO (08:29)
--- NOTE | 2025-07-09 09:53 | PM.IMPN ---
Progress Note: A&P Assessment and Plan (1) Chest pain: Code(s): R07.9 - Chest pain, unspecified Status: Acute Assessment and Plan: -cardiac enzymes have been negative x3. Treatment as ACS unstable angina -cardiology has been consulted. And recommended Would resume patient home aspirin 81 mg, metoprolol 50 mg BID, plavix 75 mg and atorvastatin 80 mg daily. Add isosorbide 30 mg daily. Planned for LHC on Friday at 7:15. Can use therapeutic lovenox 1mg/kg BID in setting of ACS. Will do f/u echo to look for any new LV dysfunction or WMA. -the patient has an extensive cardiac history with a 3 vessel CABG and a total of 6 stents.History of CAD. With history of stents and CABG. Last cath in 2022 showed patent GOLD to the LAD, patent SVG to the diagonal and patent SVG to the posterior lateral. His pLAD had 60% stenosis, mLAD 70% stenosis and LPDA 60-70% stenosis. He had RCA disease and had stents x 2 placed in pRCA, with 3 covered stents to the RCA to seal perforation. Last echo showed EF of 60%. continue aspirin, plavix and atorvastatin chronic kidney disease. Cr of 1.53. Appears at baseline. Will monitor. May benefit from IV hydration prior to LHC -the patient continues to have some discomfort when he is up moving around but becomes much less when he is laying still. (2) CAD (coronary artery disease): Code(s): I25.10 - Atherosclerotic heart disease of [place] coronary artery without angina pectoris Status: Acute Assessment and Plan: -the patient has a total of 6 stents and 3 vessel CABG. Cardiology has seen the patient already and recommend that we continue the aspirin and Plavix. -continue atorvastatin (3) Hypertension: Code(s): I10 - Essential (primary) hypertension Status: Acute Assessment and Plan: -continue with amlodipine if blood pressure allows -holding losartan with hydrochlorothiazide due to renal function. -continue with metoprolol (4) Hyperlipidemia: Code(s): E78.5 - Hyperlipidemia, unspecified Status: Acute Assessment and Plan: -continue with atorvastatin (5) Diabetes mellitus with chronic kidney disease: Code(s): E11.22 - Type 2 diabetes mellitus with diabetic chronic kidney disease Status: Acute Assessment and Plan: -A1c 7.1 -hold mounjaro -the patient stated he no longer takes metformin. However will place an on hold as it is on his med list is he is having a possible cardiac catheterization on Friday. (6) Stage 3a chronic kidney disease: Code(s): N18.31 - Chronic kidney disease, stage 3a Status: Acute Assessment and Plan: -the patient stated that he was going to have a renal ultrasound next week. However since he is currently in the hospital 1 has been ordered. -nephrology consult with greatly be appreciated. The patient stated he typically sees Dr. Gonsalez -daily BMPs -holding losartan and hydrochlorothiazide. -his creatinine is 1.53 which appears to be his baseline. His BUN is 30 which is slightly higher than his baseline. His GFR is 46 which is within his baseline. Subjective Date/time seen: 07/09/25 09:53 Interval history: No overnight events. Intermittent chest pain. No shortness of breath nausea vomiting. Review of Systems Review of Systems: All systems reviewed & are unremarkable except as noted in HPI and below Exam Narrative: APPEARANCE: Well appearing, no pain, no distress, well-nourished. HEAD: normocephalic, atraumatic. EYES: PERRLA/EOMI, conjunctivae clear. NOSE: Normal no drainage EARS:TMS clear with good light reflex. THROAT: Pharynx clear, no exudate. NECK: Supple. No adenopathy, no masses. RESPIRATORY: Airway patent, respirations nonlabored. Clear to auscultation bilaterally, no rales, rhonchi, wheezing. CARDIOVASCULAR: Regular rate and rhythm without murmurs rubs or gallops. ABDOMINAL: Soft, nontender, nondistended, normal bowel sounds MUSCULOSKELETAL: Moves all extremities. Strength/ROM intact, No edema, No calf tenderness. NEURO: Alert. Cranial nerves II through XII intact. Grossly intact SKIN: Warm, dry. Normal Color Objective Data Vital Signs Vital Signs: Vital Signs - 24 hr 07/08/25 11:13 07/08/25 16:10 07/08/25 17:38 Temperature Pulse Rate 59 L 82 71 Respiratory Rate 18 18 18 Blood Pressure 119/58 L 140/61 138/53 L Pulse Oximetry 100 99 99 Oxygen Delivery 07/08/25 19:00 07/08/25 20:00 07/08/25 20:00 Temperature 98.2 F Pulse Rate 69 70 Respiratory Rate 14 Blood Pressure 173/70 H Pulse Oximetry 100 Oxygen Delivery Room Air 07/08/25 20:09 07/08/25 21:52 07/08/25 22:00 Temperature 97.9 F Pulse Rate 82 70 65 Respiratory Rate 15 Blood Pressure 150/44 H Pulse Oximetry 97 Oxygen Delivery 07/08/25 23:56 07/09/25 00:00 07/09/25 00:00 Temperature 97.9 F Pulse Rate 64 93 Respiratory Rate 16 Blood Pressure 134/55 L Pulse Oximetry 97 Oxygen Delivery Room Air 07/09/25 02:00 07/09/25 04:00 07/09/25 04:00 Temperature Pulse Rate 57 L 63 Respiratory Rate Blood Pressure Pulse Oximetry Oxygen Delivery Room Air 07/09/25 04:19 07/09/25 06:00 07/09/25 07:13 Temperature 97.8 F 97.6 F Pulse Rate 61 64 64 Respiratory Rate 14 18 Blood Pressure 132/59 L 135/58 L Pulse Oximetry 95 97 Oxygen Delivery 07/09/25 08:00 07/09/25 08:00 07/09/25 08:28 Temperature Pulse Rate 69 58 L Respiratory Rate Blood Pressure Pulse Oximetry Oxygen Delivery Room Air Intake/Output Intake/Output: Intake & Output 07/06/25 07/07/25 07/08/25 07/09/25 23:59 23:59 23:59 23:59 Intake Total 790 Balance 790 Meds/Results Medications: Active Medications Generic Name Dose Route Start Last Admin Trade Name Freq PRN Reason Stop Dose Admin Amlodipine Besylate 10 mg 07/09/25 09:00 07/09/25 08:29 Amlodipine Besylate 10 Mg Tablet PO 10 mg DAILY JESUS Administration Aspirin 81 mg 07/09/25 09:00 07/09/25 08:29 Aspirin 81 Mg Enteric Tablet PO 81 mg DAILY JESUS Administration Atorvastatin Calcium 80 mg 07/09/25 09:00 07/09/25 08:28 Atorvastatin 40 Mg Tablet PO 80 mg DAILY JESUS Administration Clopidogrel Bisulfate 75 mg 07/09/25 09:00 07/09/25 08:28 Clopidogrel Bisulfate 75 Mg Tablet PO 75 mg DAILY JESUS Administration Dextrose 12.5 gm 07/08/25 21:23 Dextrose 50% 25 Gm/50 Ml Syringe IV PUSH PRN PRN Hypoglycemia Protocol Enoxaparin Sodium 100 mg 07/08/25 21:00 07/09/25 08:28 Enoxaparin 100 Mg/Ml Syringe SUB-Q 100 mg Q12HR JESUS Administration Glucagon 1 mg 07/08/25 21:23 Glucagon For Inj 1 Mg Vial IM PRN PRN Hypoglycemia Protocol Glucose 15 gm 07/08/25 21:23 Glucose Oral Gel 15 Gm Of Glucse In 37.5 Gm Tube PO PRN PRN Hypoglycemia Protocol Dextrose 1,000 mls @ 100 mls/hr 07/08/25 21:23 Dextrose 5% 1,000 Ml IVPB PRN PRN Hypoglycemia Protocol Insulin Aspart 2 - 5 units 07/09/25 08:00 07/09/25 07:55 Insulin Aspart (*Bkc) 100 Units/Ml SUB-Q Not Given TIDWM JESUS Protocol Metoprolol Tartrate 50 mg 07/08/25 21:30 07/09/25 08:28 Metoprolol Tartrate 50 Mg Tab PO 50 mg Q12HR JESUS Administration Pantoprazole Sodium 20 mg 07/09/25 09:00 07/09/25 08:28 Pantoprazole Sod Sesquihydrate 20 Mg Tab PO 20 mg QAM JESUS Administration Perflutren Lipid Microsphere 0 ml 07/08/25 16:19 Perflutren Lipid Microspheres 1.5 Ml Vial Diluted To 10 Ml Total Volume IV PUSH 07/11/25 16:19 ONCE PRN adequate visualization Protocol Radiology Results: ITS Impressions Chest X-Ray 07/08/25 09:53 Impression: No acute cardiopulmonary abnormality. Labs Labs: Laboratory Results - last 24 hr 07/08/25 07/08/25 07/08/25 09:32 12:35 15:25 WBC RBC Hgb Hct MCV MCH MCHC RDW Plt Count MPV PT 13.1 INR 1.0 APTT 26.4 Sodium 135 L Potassium 4.5 Chloride 102 Carbon Dioxide 20 L Anion Gap 13 H BUN 30 H D Creatinine 1.53 H Estim Creat Clear Calc 53 Estimated GFR 46 L Glucose 216 H POC Capillary Glucose Hemoglobin A1c Calcium 9.9 Total Bilirubin 0.5 AST 85 H ALT 96 H Alkaline Phosphatase 74 Troponin I < 0.012 < 0.012 < 0.012 Total Protein 8.7 H Albumin 4.8 Triglycerides 226 H Cholesterol 150 LDL Cholesterol Direct 72 HDL Direct 42 Amylase 104 Lipase 404 H 07/09/25 07/09/25 03:44 07:14 WBC 6.8 RBC 4.39 L Hgb 11.1 L Hct 35.4 L MCV 80.6 MCH 25.3 L MCHC 31.4 L RDW 15.3 H Plt Count 238 MPV 10.1 PT INR APTT Sodium 135 L Potassium 4.0 Chloride 103 Carbon Dioxide 21 L Anion Gap 11 BUN 26 H Creatinine 1.40 H Estim Creat Clear Calc 52 Estimated GFR 51 L Glucose 115 H POC Capillary Glucose 137 H Hemoglobin A1c 7.1 H Calcium 9.2 Total Bilirubin AST ALT Alkaline Phosphatase Troponin I Total Protein Albumin Triglycerides Cholesterol LDL Cholesterol Direct HDL Direct Amylase Lipase 233
--- NOTE | 2025-07-09 10:53 | P.PNCA_ITS ---
Progress Note: A&P Assessment and Plan (1) Anginal equivalent: Code(s): I20.89 - Other forms of angina pectoris Status: Acute (2) Chest pain: Code(s): R07.9 - Chest pain, unspecified Status: Acute (3) Hypertension: Code(s): I10 - Essential (primary) hypertension Status: Acute (4) Hyperlipidemia: Code(s): E78.5 - Hyperlipidemia, unspecified Status: Acute (5) History of coronary artery bypass surgery: Code(s): Z95.1 - Presence of aortocoronary bypass graft Status: Acute (6) Diabetes mellitus with chronic kidney disease: Code(s): E11.22 - Type 2 diabetes mellitus with diabetic chronic kidney disease Status: Acute (7) Stage 3a chronic kidney disease: Code(s): N18.31 - Chronic kidney disease, stage 3a Status: Acute Plan Impression; 1. Patient with known coronary disease with history of CABG and multiple angioplasty in the past now presents with the chest pain with characteristics of anginal equivalent. EKG shows normal sinus rhythm without of 63 per minute, incomplete right bundle-branch block and nonspecific T changes. Low voltage is noted. Cardiac troponin negative x2. 2. Known history of hypertension, hyperlipidemia and type 2 diabetes. Hemoglobin A1c is 7.1. 3. Chronic stage IIIA kidney disease. Creatinine on admission was 1.4. Recommendations: #.Hydrate the patient gently with normal saline at 40 cc/hour for 12 hours prior to angiogram. #. Cardiac catheterization scheduled for Interventional Cardiology for Friday. #. Currently patient is stable at rest on full-dose of subQ Lovenox without chest pain at rest. Vital signs are stable. #. Current medication reviewed. Patient is on isosorbide mononitrate 30 mg daily, aspirin 81 mg daily, Toprol 50 mg b.i.d., Plavix 75 mg daily and a torvastatin 80 mg daily. Patient is also on therapeutic dose of Lovenox at 1 milligram/kg q.12 hours. Subjective Date/time seen: 07/09/25 10:53 Interval history: Review of HPI: History of CAD. With history of stents and CABG. Last cath in 2022 showed patent GOLD to the LAD, patent SVG to the diagonal and patent SVG to the posterior lateral. His pLAD had 60% stenosis, mLAD 70% stenosis and LPDA 60-70% stenosis. He had RCA disease and had stents x 2 placed in pRCA, with 3 covered stents to the RCA to seal perforation. Last echo showed EF of 60%. continue aspirin, plavix and atorvastatin Chest pain. concerning for ACS as patient has anginal equivalent in patient with known CAD. His troponin have been negative x 2 and EKG demonstrates NSR with no acute ST/T wave changes. His CXR is with no acute cardiopulmonary process. His lipase is mildly elevated would check amylase as well. Would resume patient home aspirin 81 mg, metoprolol 50 mg BID, plavix 75 mg and atorvastatin 80 mg daily. Add isosorbide 30 mg daily. Will plan for LHC on Friday at 7:15. Can use the rapeutic lovenox 1mg/kg BID in setting of ACS. Will do f/u echo to look for any new LV dysfunction or WMA. Past medical history also significant for history of chronic kidney disease with creatinine 1.5, hyperlipidemia, hypertension and diabetes. Patient also is morbidly obese with BMI of 29.8. Subjective: Patient was examined at the bedside. Patient is feeling better without any chest pain. Patient does have chest pain on exertion or going to the bathroom. No shortness of breath orthopnea. Case has been discussed with interventional cardiology and plan is to go ahead with coronary angiography on Friday. Blood pressure is 135/58 and 164 per minute blood. Will start gently hydrating patient tomorrow for cardiac catheterization since creatinine is borderline at 1.5. Review of Systems Review of Systems: 12 point review of system was completed. Pertinent positive and negative findings per HPI. Exam Narrative: Patient was examined at the bedside. Patient is awake alert oriented x3. Not in any acute distress. No shortness of breath, chest pain at rest or orthopnea. Vital signs were reviewed. Head and neck examination is unremarkable. Head is atraumatic. Sclerae is nonicteric. ENT examination is negative. Lungs are clear to auscultation percussion. Heart sounds reveal normal S1-S2 there is no significant murmurs S3 or S4. Abdomen is obese without abdominal wall edema. There is no ascites. There is no hepatosplenomegaly. There is no tenderness. Bowel sounds present. Extremities reveal no pedal edema at this time. Neurological examination is intact. Objective Data Vital Signs Vital Signs: Vital Signs - 24 hr 07/08/25 11:13 07/08/25 16:10 07/08/25 17:38 Temperature Pulse Rate 59 L 82 71 Respiratory Rate 18 18 18 Blood Pressure 119/58 L 140/61 138/53 L Pulse Oximetry 100 99 99 Oxygen Delivery 07/08/25 19:00 07/08/25 20:00 07/08/25 20:00 Temperature 36.8 C Pulse Rate 69 70 Respiratory Rate 14 Blood Pressure 173/70 H Pulse Oximetry 100 Oxygen Delivery Room Air 07/08/25 20:09 07/08/25 21:52 07/08/25 22:00 Temperature 36.6 C Pulse Rate 82 70 65 Respiratory Rate 15 Blood Pressure 150/44 H Pulse Oximetry 97 Oxygen Delivery 07/08/25 23:56 07/09/25 00:00 07/09/25 00:00 Temperature 36.6 C Pulse Rate 64 93 Respiratory Rate 16 Blood Pressure 134/55 L Pulse Oximetry 97 Oxygen Delivery Room Air 07/09/25 02:00 07/09/25 04:00 07/09/25 04:00 Temperature Pulse Rate 57 L 63 Respiratory Rate Blood Pressure Pulse Oximetry Oxygen Delivery Room Air 07/09/25 04:19 07/09/25 06:00 07/09/25 07:13 Temperature 36.6 C 36.4 C Pulse Rate 61 64 64 Respiratory Rate 14 18 Blood Pressure 132/59 L 135/58 L Pulse Oximetry 95 97 Oxygen Delivery 07/09/25 08:00 07/09/25 08:00 07/09/25 08:28 Temperature Pulse Rate 69 58 L Respiratory Rate Blood Pressure Pulse Oximetry Oxygen Delivery Room Air 07/09/25 10:00 Temperature Pulse Rate 65 Respiratory Rate Blood Pressure Pulse Oximetry Oxygen Delivery Intake/Output Intake/Output: Intake & Output 07/06/25 07/07/25 07/08/25 07/09/25 23:59 23:59 23:59 23:59 Intake Total 790 Balance 790 Meds/Results Medications: Active Medications Generic Name Dose Route Start Last Admin Trade Name Freq PRN Reason Stop Dose Admin Amlodipine Besylate 10 mg 07/09/25 09:00 07/09/25 08:29 Amlodipine Besylate 10 Mg Tablet PO 10 mg DAILY [facility] Administration Aspirin 81 mg 07/09/25 09:00 07/09/25 08:29 Aspirin 81 Mg Enteric Tablet PO 81 mg DAILY JESUS Administration Atorvastatin Calcium 80 mg 07/09/25 09:00 07/09/25 08:28 Atorvastatin 40 Mg Tablet PO 80 mg DAILY JESUS Administration Clopidogrel Bisulfate 75 mg 07/09/25 09:00 07/09/25 08:28 Clopidogrel Bisulfate 75 Mg Tablet PO 75 mg DAILY JESUS Administration Dextrose 12.5 gm 07/08/25 21:23 Dextrose 50% 25 Gm/50 Ml Syringe IV PUSH PRN PRN Hypoglycemia Protocol Enoxaparin Sodium 100 mg 07/08/25 21:00 07/09/25 08:28 Enoxaparin 100 Mg/Ml Syringe SUB-Q 100 mg Q12HR JESUS Administration Glucagon 1 mg 07/08/25 21:23 Glucagon For Inj 1 Mg Vial IM PRN PRN Hypoglycemia Protocol Glucose 15 gm 07/08/25 21:23 Glucose Oral Gel 15 Gm Of Glucse In 37.5 Gm Tube PO PRN PRN Hypoglycemia Protocol Dextrose 1,000 mls @ 100 mls/hr 07/08/25 21:23 Dextrose 5% 1,000 Ml IVPB PRN PRN Hypoglycemia Protocol Insulin Aspart 2 - 5 units 07/09/25 08:00 07/09/25 07:55 Insulin Aspart (*Bkc) 100 Units/Ml SUB-Q Not Given TIDWM JESUS Protocol Metoprolol Tartrate 50 mg 07/08/25 21:30 07/09/25 08:28 Metoprolol Tartrate 50 Mg Tab PO 50 mg Q12HR JESUS Administration Pantoprazole Sodium 20 mg 07/09/25 09:00 07/09/25 08:28 Pantoprazole Sod Sesquihydrate 20 Mg Tab PO 20 mg QAM JESUS Administration Perflutren Lipid Microsphere 0 ml 07/08/25 16:19 Perflutren Lipid Microspheres 1.5 Ml Vial Diluted To 10 Ml Total Volume IV PUSH 07/11/25 16:19 ONCE PRN adequate visualization Protocol Radiology Results: ITS Impressions Chest X-Ray 07/08/25 09:53 Impression: No acute cardiopulmonary abnormality. Labs Labs: Laboratory Results - last 24 hr 07/08/25 07/08/25 07/09/25 12:35 15:25 03:44 WBC 6.8 RBC 4.39 L Hgb 11.1 L Hct 35.4 L MCV 80.6 MCH 25.3 L MCHC 31.4 L RDW 15.3 H Plt Count 238 MPV 10.1 Sodium 135 L Potassium 4.0 Chloride 103 Carbon Dioxide 21 L Anion Gap 11 BUN 26 H Creatinine 1.40 H Estim Creat Clear Calc 52 Estimated GFR 51 L Glucose 115 H POC Capillary Glucose Hemoglobin A1c 7.1 H Calcium 9.2 Troponin I < 0.012 < 0.012 Triglycerides 226 H Cholesterol 150 LDL Cholesterol Direct 72 HDL Direct 42 Amylase 104 Lipase 233 07/09/25 07:14 WBC RBC Hgb Hct MCV MCH MCHC RDW Plt Count MPV Sodium Potassium Chloride Carbon Dioxide Anion Gap BUN Creatinine Estim Creat Clear Calc Estimated GFR Glucose POC Capillary Glucose 137 H Hemoglobin A1c Calcium Troponin I Triglycerides Cholesterol LDL Cholesterol Direct HDL Direct Amylase Lipase
--- NOTE | 2025-07-09 11:05 | P.PNCROSS_ITS ---
Event Note Event Note Event Note: Courtesy Visit. Patient admitted with chest pain and concerns for ACS. No apparent distress when seen. Discussed case with Dr. Rivas -- formal consultation not requested at this time. Clinic patient of mine with established CKD with renal function/creatinine that is at baseline. Recommendations: * agree with holding losartan and HCTZ at least 24 hours prior to cardiac catheterization * pre/post IVFs with cardiac catheterization (within the limits of respiratory status) for prevention of contrast nephropathy - i.e. normal saline 75cc/hr 1 hour prior to, during, and 1 hour after cardiac catheterization... Please call (place formal consult) if needed.
[2025-07-10] VITALS (20 sets, daily range): BP systolic 129–146; BP diastolic 58–63; PULSE 52–68; RESP 16–20; TEMP 36.4–37.2; O2SAT 93–99
[2025-07-10 04:36] LABS: Hematocrit 37.4 % (42.0-52.0); Hemoglobin 11.9 g/dL (14.0-18.0); Immature Granulocyte Percent A 0.2 % (0-0.5); Lymphocytes Absolute Auto 2.05 K/mm3 (0.9-3.2); Mean Corpuscular HGB Conc 31.8 g/dl (32-36); Mean Corpuscular Hemoglobin 25.6 pg (26-34); Mean Corpuscular Volume 80.6 fl (80-100); Nucleated Red Blood Cells Absolute Auto 0.000 K/mm3 (0.0-0.012); Nucleated Red Blood Cells Perc 0.0 % (0.0-0.2); Platelet Count Result 254 k/mm3 (150-375); Red Blood Count 4.64 M/mm3 (4.6-6.20); White Blood Count 5.6 K/mm3 (4.5-10.0)
[2025-07-10 05:07] LABS: Alanine Aminotransferase 101 U/L (6-50); Albumin Level 4.2 g/dL (3.5-5.1); Alkaline Phosphatase 75 U/L (38-126); Anion Gap 11 mmol/L (4-12); Aspartate Amino Transferase 97 U/L (17-59); Bilirubin,Total 0.6 mg/dL (0.2-1.3); Blood Urea Nitrogen 23 mg/dL (9-20); Calcium 9.1 mg/dL (8.4-10.2); Carbon Dioxide 22 mmol/L (22-30); Chloride 101 mmol/L (98-107); Estimated CRCL calculation 51 ml/min; Estimated Glomerular Filt Rate 50; Glucose 155 mg/dL (65-110); Magnesium 1.4 mg/dL (1.6-2.3); Potassium 3.7 mmol/L (3.4-5.0); Sodium 134 mmol/L (137-145); Total Protein 7.8 g/dL (6.3-8.2)
[2025-07-10] MEDS: ENOXAPARIN 100 MG/ML SYRINGE SUB-Q ×2 (08:31→21:03)
[2025-07-10] MEDS: PANTOPRAZOLE SOD SESQUIHYDRATE 20 MG TAB PO (08:33)
[2025-07-10] MEDS: METOPROLOL TARTRATE 50 MG TAB PO ×2 (08:33→21:03)
[2025-07-10] MEDS: CLOPIDOGREL BISULFATE 75 MG TABLET PO (08:33)
[2025-07-10] MEDS: MAGNESIUM SULF 1 GM/D5W 100 ML 1 GM/100 ML BAG IVPB (08:33)
[2025-07-10] MEDS: ATORVASTATIN 40 MG TABLET 80 MG PO (08:33)
[2025-07-10] MEDS: ASPIRIN 81 MG ENTERIC TABLET PO (08:33)
--- NOTE | 2025-07-10 12:30 | P.PNCA_ITS ---
Progress Note: A&P Assessment and Plan (1) Anginal equivalent: Code(s): I20.89 - Other forms of angina pectoris Status: Acute (2) Chest pain: Code(s): R07.9 - Chest pain, unspecified Status: Acute (3) Hypertension: Code(s): I10 - Essential (primary) hypertension Status: Acute (4) Hyperlipidemia: Code(s): E78.5 - Hyperlipidemia, unspecified Status: Acute (5) History of coronary artery bypass surgery: Code(s): Z95.1 - Presence of aortocoronary bypass graft Status: Acute (6) Diabetes mellitus with chronic kidney disease: Code(s): E11.22 - Type 2 diabetes mellitus with diabetic chronic kidney disease Status: Acute (7) Stage 3a chronic kidney disease: Code(s): N18.31 - Chronic kidney disease, stage 3a Status: Acute Plan Impression; 1. Patient with known coronary disease with history of CABG and multiple angioplasty in the past now presents with the chest pain with characteristics of anginal equivalent. EKG shows normal sinus rhythm without of 63 per minute, incomplete right bundle-branch block and nonspecific T changes. Low voltage is noted. Cardiac troponin negative x2. 2. Known history of hypertension, hyperlipidemia and type 2 diabetes. Hemoglobin A1c is 7.1. 3. Chronic stage IIIA kidney disease. Creatinine on admission was 1.4. Recommendations: #.Hydrate the patient gently with normal saline at 40 cc/hour for 12 hours prior to angiogram. #. Cardiac catheterization scheduled for Interventional Cardiology for Friday. #. Currently patient is stable at rest on full-dose of subQ Lovenox without chest pain at rest. Vital signs are stable. #. Current medication reviewed. Patient is on isosorbide mononitrate 30 mg daily, aspirin 81 mg daily, Toprol 50 mg b.i.d., Plavix 75 mg daily and a torvastatin 80 mg daily. Patient is also on therapeutic dose of Lovenox at 1 milligram/kg q.12 hours. #. Laboratory data reviewed from 07/10/2025. Sodium is 134, BUN 23, creatinine 1.42. Will start hydrating patient hydrating at 60 cc/hour after midnight. Subjective Date/time seen: 07/10/25 12:30 Interval history: Review of HPI: History of CAD. With history of stents and CABG. Last cath in 2022 showed patent GOLD to the LAD, patent SVG to the diagonal and patent SVG to the posterior lateral. His pLAD had 60% stenosis, mLAD 70% stenosis and LPDA 60-70% stenosis. He had RCA disease and had stents x 2 placed in pRCA, with 3 covered stents to the RCA to seal perforation. Last echo showed EF of 60%. continue aspirin, plavix and atorvastatin Chest pain. concerning for ACS as patient has anginal equivalent in patient with known CAD. His troponin have been negative x 2 and EKG demonstrates NSR with no acute ST/T wave changes. His CXR is with no acute cardiopulmonary process. His lipase is mildly elevated would check amylase as well. Would resume patient home aspirin 81 mg, metoprolol 50 mg BID, plavix 75 mg and atorvastatin 80 mg daily. Add isosorbide 30 mg daily. Will plan for LHC on Friday at 7:15. Can use therapeutic lovenox 1mg/kg BID in setting of ACS. Will do f/u echo to look for any new LV dysfunction or WMA. Past medical history also significant for history of chronic kidney disease with creatinine 1.5, hyperlipidemia, hypertension and diabetes. Patient also is morbidly obese with BMI of 29.8. Subjective: Patient was examined at the bedside. Patient is feeling better without any chest pain. Patient does have chest pain on exertion or going to the bathroom. No shortness of breath orthopnea. Case has been discussed with interventional cardiology and plan is to go ahead with coronary angiography on Friday. Blood pressure is 135/58 and 164 per minute blood. Will start gently hydrating patient tomorrow for cardiac catheterization since creatinine is borderline at 1.5. Review of Systems Review of Systems: 12 point review of system was completed. Pertinent positive and negative findings per HPI. Cardiac negative for chest pain or shortness of breath. Pulmonary negative for shortness of breath, cough or hemoptysis. Exam Narrative: Patient was examined at the bedside. Patient is awake alert oriented x3. Not in any acute distress. No shortness of breath, chest pain at rest or orthopnea. Vital signs were reviewed. Head and neck examination is unremarkable. Head is atraumatic. Sclerae is nonicteric. ENT examination is negative. Lungs are clear to auscultation percussion. Heart sounds reveal normal S1-S2 there is no significant murmurs S3 or S4. Abdomen is obese without abdominal wall edema. There is no ascites. There is no hepatosplenomegaly. There is no tenderness. Bowel sounds present. Extremities reveal no pedal edema at this time. Neurological examination is intact. Objective Data Vital Signs Vital Signs: Vital Signs - 24 hr 07/09/25 14:00 07/09/25 16:00 07/09/25 16:00 Temperature Pulse Rate 61 61 Respiratory Rate Blood Pressure Pulse Oximetry Oxygen Delivery Room Air 07/09/25 16:24 07/09/25 18:00 07/09/25 19:20 Temperature 36.3 C L 36.7 C Pulse Rate 59 L 65 60 Respiratory Rate 20 15 Blood Pressure 161/57 H 131/58 L Pulse Oximetry 100 97 Oxygen Delivery 07/09/25 19:58 07/09/25 20:00 07/09/25 20:00 Temperature Pulse Rate 60 Respiratory Rate Blood Pressure Pulse Oximetry 97 Oxygen Delivery Room Air Room Air 07/09/25 20:28 07/09/25 22:00 07/10/25 00:00 Temperature 36.6 C Pulse Rate 66 64 66 Respiratory Rate 17 Blood Pressure 132/60 Pulse Oximetry 96 Oxygen Delivery 07/10/25 00:00 07/10/25 00:00 07/10/25 02:00 Temperature Pulse Rate 54 L 52 L Respiratory Rate Blood Pressure Pulse Oximetry Oxygen Delivery Room Air 07/10/25 03:26 07/10/25 04:00 07/10/25 04:00 Temperature 36.5 C Pulse Rate 63 65 Respiratory Rate 17 Blood Pressure 138/63 Pulse Oximetry 97 Oxygen Delivery Room Air 07/10/25 06:00 07/10/25 07:18 07/10/25 08:00 Temperature 36.4 C Pulse Rate 52 L 59 L Respiratory Rate 18 Blood Pressure 140/63 Pulse Oximetry 98 Oxygen Delivery Room Air 07/10/25 08:00 07/10/25 08:33 07/10/25 10:00 Temperature Pulse Rate 68 61 55 L Respiratory Rate Blood Pressure Pulse Oximetry Oxygen Delivery 07/10/25 12:00 Temperature 37.2 C Pulse Rate 55 L Respiratory Rate 18 Blood Pressure 132/58 L Pulse Oximetry 99 Oxygen Delivery Intake/Output Intake/Output: Intake & Output 07/07/25 07/08/25 07/09/25 07/10/25 23:59 23:59 23:59 23:59 Intake Total 1720 540 Balance 1720 540 Meds/Results Medications: Active Medications Generic Name Dose Route Start Last Admin Trade Name Freq PRN Reason Stop Dose Admin Amlodipine Besylate 10 mg 07/09/25 09:00 07/10/25 08:33 Amlodipine Besylate 10 Mg Tablet PO 10 mg DAILY JESUS Administration Aspirin 81 mg 07/09/25 09:00 07/10/25 08:33 Aspirin 81 Mg Enteric Tablet PO 81 mg DAILY JESUS Administration Atorvastatin Calcium 80 mg 07/09/25 09:00 07/10/25 08:33 Atorvastatin 40 Mg Tablet PO 80 mg DAILY JESUS Administration Clopidogrel Bisulfate 75 mg 07/09/25 09:00 07/10/25 08:33 Clopidogrel Bisulfate 75 Mg Tablet PO 75 mg DAILY JESUS Administration Dextrose 12.5 gm 07/08/25 21:23 Dextrose 50% 25 Gm/50 Ml Syringe IV PUSH PRN PRN Hypoglycemia Protocol Enoxaparin Sodium 100 mg 07/08/25 21:00 07/10/25 08:31 Enoxaparin 100 Mg/Ml Syringe SUB-Q 100 mg Q12HR JESUS Administration Glucagon 1 mg 07/08/25 21:23 Glucagon For Inj 1 Mg Vial IM PRN PRN Hypoglycemia Protocol Glucose 15 gm 07/08/25 21:23 Glucose Oral Gel 15 Gm Of Glucse In 37.5 Gm Tube PO PRN PRN Hypoglycemia Protocol Dextrose 1,000 mls @ 100 mls/hr 07/08/25 21:23 Dextrose 5% 1,000 Ml IVPB PRN PRN Hypoglycemia Protocol Insulin Aspart 2 - 5 units 07/09/25 08:00 07/10/25 12:10 Insulin Aspart (*Bkc) 100 Units/Ml SUB-Q Not Given TIDWM JESUS Protocol Metoprolol Tartrate 50 mg 07/08/25 21:30 07/10/25 08:33 Metoprolol Tartrate 50 Mg Tab PO 50 mg Q12HR JESUS Administration Pantoprazole Sodium 20 mg 07/09/25 09:00 07/10/25 08:33 Pantoprazole Sod Sesquihydrate 20 Mg Tab PO 20 mg QAM JESUS Administration Perflutren Lipid Microsphere 0 ml 07/08/25 16:19 Perflutren Lipid Microspheres 1.5 Ml Vial Diluted To 10 Ml Total Volume IV PUSH 07/11/25 16:19 ONCE PRN adequate visualization Protocol Radiology Results: ITS Impressions Chest X-Ray 07/08/25 09:53 Impression: No acute cardiopulmonary abnormality. Renal Ultrasound 07/09/25 15:06 Impression: No acute abnormality. Labs Labs: Laboratory Results - last 24 hr 07/09/25 07/09/25 07/10/25 16:17 19:25 03:56 WBC 5.6 RBC 4.64 Hgb 11.9 L Hct 37.4 L MCV 80.6 MCH 25.6 L MCHC 31.8 L RDW 14.9 H Plt Count 254 MPV 9.9 Immature Gran % (Auto) 0.2 Neut % (Auto) 49.7 Lymph % (Auto) 36.7 [place] % (Auto) 8.2 Eos % (Auto) 4.1 Baso % (Auto) 1.1 Lymph # (Auto) 2.05 [place] # (Auto) 0.5 Eos # (Auto) 0.2 Baso # (Auto) 0.1 Abs Immat Gran (auto) 0.01 Absolute Neuts (auto) 2.8 Absolute Nucleated RBC 0.000 Nucleated RBC % 0.0 Sodium 134 L Potassium 3.7 Chloride 101 Carbon Dioxide 22 Anion Gap 11 BUN 23 H Creatinine 1.42 H Estim Creat Clear Calc 51 Estimated GFR 50 L Glucose 155 H POC Capillary Glucose 140 H 158 H Calcium 9.1 Magnesium 1.4 L Total Bilirubin 0.6 AST 97 H ALT 101 H Alkaline Phosphatase 75 Total Protein 7.8 Albumin 4.2 07/10/25 07/10/25 06:48 11:45 WBC RBC Hgb Hct MCV MCH MCHC RDW Plt Count MPV Immature Gran % (Auto) Neut % (Auto) Lymph % (Auto) [place] % (Auto) Eos % (Auto) Baso % (Auto) Lymph # (Auto) [place] # (Auto) Eos # (Auto) Baso # (Auto) Abs Immat Gran (auto) Absolute Neuts (auto) Absolute Nucleated RBC Nucleated RBC % Sodium Potassium Chloride Carbon Dioxide Anion Gap BUN Creatinine Estim Creat Clear Calc Estimated GFR Glucose POC Capillary Glucose 137 H 189 H Calcium Magnesium Total Bilirubin AST ALT Alkaline Phosphatase Total Protein Albumin
--- NOTE | 2025-07-10 13:09 | P.PNIM_ITS ---
Progress Note: A&P Assessment and Plan (1) Chest pain: Code(s): R07.9 - Chest pain, unspecified Status: Acute Assessment and Plan: -cardiac enzymes have been negative x3. Treatment as ACS unstable angina -cardiology has been consulted. And recommended Would resume patient home aspirin 81 mg, metoprolol 50 mg BID, plavix 75 mg and atorvastatin 80 mg daily. Add isosorbide 30 mg daily. Planned for LHC on Friday at 7:15. Can use therapeutic lovenox 1mg/kg BID in setting of ACS. Will do f/u echo to look for any new LV dysfunction or WMA. -the patient has an extensive cardiac history with a 3 vessel CABG and a total of 6 stents.History of CAD. With history of stents and CABG. Last cath in 2022 showed patent GOLD to the LAD, patent SVG to the diagonal and patent SVG to the posterior lateral. His pLAD had 60% stenosis, mLAD 70% stenosis and LPDA 60-70% stenosis. He had RCA disease and had stents x 2 placed in pRCA, with 3 covered stents to the RCA to seal perforation. Last echo showed EF of 60%. continue aspirin, plavix and atorvastatin chronic kidney disease. Cr of 1.53. Appears at baseline. Will monitor. May benefit from IV hydration prior to LHC -the patient continues to have some discomfort when he is up moving around but becomes much less when he is laying still. Plan for cardiac catheterization in a.m. (2) CAD (coronary artery disease): Code(s): I25.10 - Atherosclerotic heart disease of [place] coronary artery without angina pectoris Status: Acute Assessment and Plan: -the patient has a total of 6 stents and 3 vessel CABG. Cardiology has seen the patient already and recommend that we continue the aspirin and Plavix. -continue atorvastatin (3) Hypertension: Code(s): I10 - Essential (primary) hypertension Status: Acute Assessment and Plan: -continue with amlodipine if blood pressure allows -holding losartan with hydrochlorothiazide due to renal function. -continue with metoprolol (4) Hyperlipidemia: Code(s): E78.5 - Hyperlipidemia, unspecified Status: Acute Assessment and Plan: -continue with atorvastatin (5) Diabetes mellitus with chronic kidney disease: Code(s): E11.22 - Type 2 diabetes mellitus with diabetic chronic kidney disease Status: Acute Assessment and Plan: -A1c 7.1 -hold mounjaro -the patient stated he no longer takes metformin. However will place an on hold as it is on his med list is he is having a possible cardiac catheterization on Friday. (6) Stage 3a chronic kidney disease: Code(s): N18.31 - Chronic kidney disease, stage 3a Status: Acute Assessment and Plan: -the patient stated that he was going to have a renal ultrasound next week. However since he is currently in the hospital 1 has been ordered. -nephrology consult with greatly be appreciated. The patient stated he typically sees Dr. Gonsalez -daily BMPs -holding losartan and hydrochlorothiazide. -his creatinine is 1.53 which appears to be his baseline. His BUN is 30 which is slightly higher than his baseline. His GFR is 46 which is within his baseline. Subjective Date/time seen: 07/10/25 13:09 Interval history: no new complaints. No overnight events. Plan for catheterization in a.m.. Review of Systems Review of Systems: All systems reviewed & are unremarkable except as noted in HPI and below Exam Narrative: APPEARANCE: Well appearing, no pain, no distress, well-nourished. HEAD: normocephalic, atraumatic. EYES: PERRLA/EOMI, conjunctivae clear. NOSE: Normal no drainage EARS:TMS clear with good light reflex. THROAT: Pharynx clear, no exudate. NECK: Supple. No adenopathy, no masses. RESPIRATORY: Airway patent, respirations nonlabored. Clear to auscultation bilaterally, no rales, rhonchi, wheezing. CARDIOVASCULAR: Regular rate and rhythm without murmurs rubs or gallops. ABDOMINAL: Soft, nontender, nondistended, normal bowel sounds MUSCULOSKELETAL: Moves all extremities. Strength/ROM intact, No edema, No calf tenderness. NEURO: Alert. Cranial nerves II through XII intact. Grossly intact SKIN: Warm, dry. Normal Color Objective Data Vital Signs Vital Signs: Vital Signs - 24 hr 07/09/25 14:00 07/09/25 16:00 07/09/25 16:00 Temperature Pulse Rate 61 61 Respiratory Rate Blood Pressure Pulse Oximetry Oxygen Delivery Room Air 07/09/25 16:24 07/09/25 18:00 07/09/25 19:20 Temperature 97.4 F L 98.1 F Pulse Rate 59 L 65 60 Respiratory Rate 20 15 Blood Pressure 161/57 H 131/58 L Pulse Oximetry 100 97 Oxygen Delivery 07/09/25 19:58 07/09/25 20:00 07/09/25 20:00 Temperature Pulse Rate 60 Respiratory Rate Blood Pressure Pulse Oximetry 97 Oxygen Delivery Room Air Room Air 07/09/25 20:28 07/09/25 22:00 07/10/25 00:00 Temperature 97.9 F Pulse Rate 66 64 66 Respiratory Rate 17 Blood Pressure 132/60 Pulse Oximetry 96 Oxygen Delivery 07/10/25 00:00 07/10/25 00:00 07/10/25 02:00 Temperature Pulse Rate 54 L 52 L Respiratory Rate Blood Pressure Pulse Oximetry Oxygen Delivery Room Air 07/10/25 03:26 07/10/25 04:00 07/10/25 04:00 Temperature 97.7 F Pulse Rate 63 65 Respiratory Rate 17 Blood Pressure 138/63 Pulse Oximetry 97 Oxygen Delivery Room Air 07/10/25 06:00 07/10/25 07:18 07/10/25 08:00 Temperature 97.6 F Pulse Rate 52 L 59 L Respiratory Rate 18 Blood Pressure 140/63 Pulse Oximetry 98 Oxygen Delivery Room Air 07/10/25 08:00 07/10/25 08:33 07/10/25 10:00 Temperature Pulse Rate 68 61 55 L Respiratory Rate Blood Pressure Pulse Oximetry Oxygen Delivery 07/10/25 12:00 07/10/25 12:00 07/10/25 12:40 Temperature 98.9 F Pulse Rate 55 L 54 L 57 L Respiratory Rate 18 Blood Pressure 132/58 L Pulse Oximetry 99 Oxygen Delivery Intake/Output Intake/Output: Intake & Output 07/07/25 07/08/25 07/09/25 07/10/25 23:59 23:59 23:59 23:59 Intake Total 1720 780 Balance 1720 780 Meds/Results Medications: Active Medications Generic Name Dose Route Start Last Admin Trade Name Freq PRN Reason Stop Dose Admin Amlodipine Besylate 10 mg 07/09/25 09:00 07/10/25 08:33 Amlodipine Besylate 10 Mg Tablet PO 10 mg DAILY JESUS Administration Aspirin 81 mg 07/09/25 09:00 07/10/25 08:33 Aspirin 81 Mg Enteric Tablet PO 81 mg DAILY JESUS Administration Atorvastatin Calcium 80 mg 07/09/25 09:00 07/10/25 08:33 Atorvastatin 40 Mg Tablet PO 80 mg DAILY JESUS Administration Clopidogrel Bisulfate 75 mg 07/09/25 09:00 07/10/25 08:33 Clopidogrel Bisulfate 75 Mg Tablet PO 75 mg DAILY JESUS Administration Dextrose 12.5 gm 07/08/25 21:23 Dextrose 50% 25 Gm/50 Ml Syringe IV PUSH PRN PRN Hypoglycemia Protocol Enoxaparin Sodium 100 mg 07/08/25 21:00 07/10/25 08:31 Enoxaparin 100 Mg/Ml Syringe SUB-Q 100 mg Q12HR JESUS Administration Glucagon 1 mg 07/08/25 21:23 Glucagon For Inj 1 Mg Vial IM PRN PRN Hypoglycemia Protocol Glucose 15 gm 07/08/25 21:23 Glucose Oral Gel 15 Gm Of Glucse In 37.5 Gm Tube PO PRN PRN Hypoglycemia Protocol Dextrose 1,000 mls @ 100 mls/hr 07/08/25 21:23 Dextrose 5% 1,000 Ml IVPB PRN PRN Hypoglycemia Protocol Sodium Chloride 250 mls @ 60 mls/hr 07/10/25 12:33 Normal Saline Iv IV CONT 07/10/25 16:42 .Q4H10M ONE Insulin Aspart 2 - 5 units 07/09/25 08:00 07/10/25 12:10 Insulin Aspart (*Bkc) 100 Units/Ml SUB-Q Not Given TIDWM JESUS Protocol Metoprolol Tartrate 50 mg 07/08/25 21:30 07/10/25 08:33 Metoprolol Tartrate 50 Mg Tab PO 50 mg Q12HR JESUS Administration Pantoprazole Sodium 20 mg 07/09/25 09:00 07/10/25 08:33 Pantoprazole Sod Sesquihydrate 20 Mg Tab PO 20 mg QAM JESUS Administration Perflutren Lipid Microsphere 0 ml 07/08/25 16:19 Perflutren Lipid Microspheres 1.5 Ml Vial Diluted To 10 Ml Total Volume IV PUSH 07/11/25 16:19 ONCE PRN adequate visualization Protocol Radiology Results: ITS Impressions Chest X-Ray 07/08/25 09:53 Impression: No acute cardiopulmonary abnormality. Renal Ultrasound 07/09/25 15:06 Impression: No acute abnormality. Labs Labs: Laboratory Results - last 24 hr 10/04/25 10/04/25 10/05/25 16:17 19:25 03:56 WBC 5.6 RBC 4.64 Hgb 11.9 L Hct 37.4 L MCV 80.6 MCH 25.6 L MCHC 31.8 L RDW 14.9 H Plt Count 254 MPV 9.9 Immature Gran % (Auto) 0.2 Neut % (Auto) 49.7 Lymph % (Auto) 36.7 [place] % (Auto) 8.2 Eos % (Auto) 4.1 Baso % (Auto) 1.1 Lymph # (Auto) 2.05 [place] # (Auto) 0.5 Eos # (Auto) 0.2 Baso # (Auto) 0.1 Abs Immat Gran (auto) 0.01 Absolute Neuts (auto) 2.8 Absolute Nucleated RBC 0.000 Nucleated RBC % 0.0 Sodium 134 L Potassium 3.7 Chloride 101 Carbon Dioxide 22 Anion Gap 11 BUN 23 H Creatinine 1.42 H Estim Creat Clear Calc 51 Estimated GFR 50 L Glucose 155 H POC Capillary Glucose 140 H 158 H Calcium 9.1 Magnesium 1.4 L Total Bilirubin 0.6 AST 97 H ALT 101 H Alkaline Phosphatase 75 Total Protein 7.8 Albumin 4.2 07/10/25 07/10/25 06:48 11:45 WBC RBC Hgb Hct MCV MCH MCHC RDW Plt Count MPV Immature Gran % (Auto) Neut % (Auto) Lymph % (Auto) [place] % (Auto) Eos % (Auto) Baso % (Auto) Lymph # (Auto) [place] # (Auto) Eos # (Auto) Baso # (Auto) Abs Immat Gran (auto) Absolute Neuts (auto) Absolute Nucleated RBC Nucleated RBC % Sodium Potassium Chloride Carbon Dioxide Anion Gap BUN Creatinine Estim Creat Clear Calc Estimated GFR Glucose POC Capillary Glucose 137 H 189 H Calcium Magnesium Total Bilirubin AST ALT Alkaline Phosphatase Total Protein Albumin
[2025-07-11] VITALS (29 sets, daily range): BP systolic 115–150; BP diastolic 55–98; PULSE 51–64; RESP 12–17; TEMP 36.3–36.8; O2SAT 62–100
[2025-07-11] MEDS: SODIUM CHLORIDE 0.9% IV 250 ML 60 ML IV CONT (00:25)
--- NOTE | 2025-07-11 07:16 | P.SEDATION_ITS ---
Moderate Sedation Note-Pt Data Patient Data Diagnosis: Chest pain Present Complaint: Chest pain Procedure to be performed/Plan: Coronary angiogram Allergies Allergy/AdvReac Type Severity Reaction Status Date / Time lisinopril AdvReac Cough Verified 07/08/25 18:40 Home Medications ?Medication ?Instructions ?Recorded ?Confirmed ?Type amlodipine 10 mg tablet 10 mg PO DAILY 02/08/2112/28 History aspirin 81 mg tablet,delayed 81 mg PO DAILY 02/08/21 1 History release fenofibrate 40 mg tablet 48 mg PO HS 02/08/21 5 History losartan 100 1 tablet PO DAILY 02/08/21 1 History mg-hydrochlorothiazide 12.5 mg tablet metoprolol tartrate 50 mg tablet 50 mg PO Q12H 1 07/08/25 History clopidogrel 75 mg tablet 75 mg PO DAILY 07/20/2112/28 History metformin 500 mg tablet 1,000 mg PO BID 07/20/2112/28 History ergocalciferol (vitamin D2) 1,000 1,000 unit PO DAILY 08/08/22 07/08/25 History unit capsule omeprazole 20 mg capsule,delayed 20 mg PO DAILY 07/08/25 History release atorvastatin 80 mg tablet 80 mg PO DAILY 05/16/2512/28 History meloxicam 15 mg tablet 15 mg PO DAILY 05/16/2512/28 History risankizumab-rzaa 150 mg/mL 150 mg subcut ONCE 5 07/08/25 History subcutaneous pen injector (Jaylan) tirzepatide 5 mg/0.5 mL 5 mg subcut WEEKLY 05/16/25 07/08/25 History subcutaneous pen injector (Gisselle) Current Medications: Active Medications Amlodipine Besylate (Amlodipine Besylate 10 Mg Tablet) 10 mg PO DAILY [facility] Last Admin: 07/10/25 08:33 Dose: 10 mg Aspirin (Aspirin 81 Mg Enteric Tablet) 81 mg PO DAILY [facility] Last Admin: 07/10/25 08:33 Dose: 81 mg Atorvastatin Calcium (Atorvastatin 40 Mg Tablet) 80 mg PO DAILY [facility] Last Admin: 07/10/25 08:33 Dose: 80 mg Clopidogrel Bisulfate (Clopidogrel Bisulfate 75 Mg Tablet) 75 mg PO DAILY [facility] Last Admin: 07/10/25 08:33 Dose: 75 mg Dextrose (Dextrose 50% 25 Gm/50 Ml Syringe) 12.5 gm IV PUSH PRN PRN; Protocol PRN Reason: Hypoglycemia Enoxaparin Sodium (Enoxaparin 100 Mg/Ml Syringe) 100 mg SUB-Q Q12HR [facility] Last Admin: 07/10/25 21:03 Dose: 100 mg Glucagon (Glucagon For Inj 1 Mg Vial) 1 mg IM PRN PRN; Protocol PRN Reason: Hypoglycemia Glucose (Glucose Oral Gel 15 Gm Of Glucse In 37.5 Gm Tube) 15 gm PO PRN PRN; Protocol PRN Reason: Hypoglycemia Dextrose (Dextrose 5% 1,000 Ml) 1,000 mls @ 100 mls/hr IVPB PRN PRN; Protocol PRN Reason: Hypoglycemia Insulin Aspart (Insulin Aspart (*Bkc) 100 Units/Ml) 2 - 5 units SUB-Q TIDWM JESUS; Protocol Last Admin: 07/10/25 18:30 Dose: Not Given Metoprolol Tartrate (Metoprolol Tartrate 50 Mg Tab) 50 mg PO Q12HR [facility] Last Admin: 07/10/25 21:03 Dose: 50 mg Pantoprazole Sodium (Pantoprazole Sod Sesquihydrate 20 Mg Tab) 20 mg PO QAM [facility] Last Admin: 07/10/25 08:33 Dose: 20 mg Perflutren Lipid Microsphere (Perflutren Lipid Microspheres 1.5 Ml Vial Diluted To 10 Ml Total Volume) 0 ml IV PUSH ONCE PRN; Protocol PRN Reason: adequate visualization Stop: 07/11/25 16:19 Sedation/Anesthesia: No previous sedation/anesthesia problems (including family history). [facility] Past Medical History Medical History Chronic renal disease, stage 3, moderately decreased glomerular filtration rate (GFR) between 30-59 mL/min/1.73 square meter Psoriatic arthritis Arthritis Chronic pain syndrome Myocardial infarction Hypertension Hyperlipidemia Diabetes CAD (coronary artery disease) Bloating Irritable bowel syndrome with diarrhea Colon cancer screening GERD (gastroesophageal reflux disease) Psoriasis Alternating constipation and diarrhea Surgical History Surgical History H/O cervical spinal arthrodesis 2009 History of tonsillectomy and adenoidectomy History of foot surgery History of eyelid surgery Hx of cholecystectomy S/P CABG x 3 2020 Stented coronary artery 1 stent in 2012 and 5 stents in 2022 Family History Family History Father Family history of heart disease in male family member before age 55 Diabetes mellitus Family history of diabetes mellitus in first degree relative Hypertension Heart disease Acute myocardial infarction Mother Diabetes mellitus Family history of diabetes mellitus in first degree relative Hyperlipemia Hypertension Heart disease Acute myocardial infarction Grandparent Family history of malignant neoplasm Other Family history of allergic disorder Family history of tuberculosis Social History Social History Social History: the patient works at [employer] 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 He has 3 children. The patient quit smoking in approximately 2015. He lives with his Linda and she is the [employer]. He denies any marijuana alcohol or illicit drugs. Code status full code Smoking packs per day: 0.75 Smoking cigarettes per day: 15.0 Years smoked: 30 Smoking pack-years: 22.50 Smoking status: Former smoker Tobacco type: cigarettes Second hand tobacco smoke exposure: No Smoking end date: 09/24/16 Additional smoking assessment comments: 3/4 PPD for 40 years Alcohol intake: never Drinks per week: 1 Alcohol use details: socially Substance use: never Substance use type: does not use Lack of Transportation: No Lack of Food: Never True Current Housing: I Have Housing Concerned About Future Housing: No Difficulty Paying Gas/Electric Bills: No Difficulty Paying for Meds: No Currently Unemployed: No Education: Decline to Answer Difficulty w/ Childcare or Family Care: Decline to Answer Living arrangements: with family Additional living arrangements comments: with linda Gender identity (if verbalized by the patient): Male Sexual Orientation (if Verbalized by the Patient): Straight or Heterosexual Spiritual care concerns: No Mod Sed Physical Exam Physical Exam Pre Procedural Exam: Normal: Appearance, Eyes, Ears, Nose, Neck, Throat, Airway, Lungs, Heart Size, Heart Rate, Heart Rhythm, Neuro Exam, Abdomen, Liver, Kidneys, Spleen, Breasts, Genitalia, Extremities and Skin Hours since solid foods: 8 Hours since liquid intake: 8 Mallampati Classification: class 1 Internal Medicine - PN: Obj Da Vital Signs Vital Signs: Vital Signs - 24 hr 07/10/25 07:18 07/10/25 08:00 07/10/25 08:00 Temperature 36.4 C Pulse Rate 59 L 68 Respiratory Rate 18 Blood Pressure 140/63 Pulse Oximetry 98 Oxygen Delivery Room Air Fraction of Inspired Oxygen 07/10/25 08:33 07/10/25 10:00 07/10/25 12:00 Temperature 37.2 C Pulse Rate 61 55 L 55 L Respiratory Rate 18 Blood Pressure 132/58 L Pulse Oximetry 99 Oxygen Delivery Fraction of Inspired Oxygen 07/10/25 12:00 07/10/25 12:00 07/10/25 12:40 Temperature Pulse Rate 54 L 57 L Respiratory Rate Blood Pressure Pulse Oximetry Oxygen Delivery Room Air Fraction of Inspired Oxygen 07/10/25 14:00 07/10/25 16:00 07/10/25 16:00 Temperature 36.8 C Pulse Rate 56 L 56 L Respiratory Rate 18 Blood Pressure 146/63 H Pulse Oximetry 96 Oxygen Delivery Room Air Fraction of Inspired Oxygen 07/10/25 16:00 07/10/25 18:00 07/10/25 19:26 Temperature 36.4 C L Pulse Rate 57 L 58 L 57 L Respiratory Rate 16 Blood Pressure 136/60 Pulse Oximetry 99 Oxygen Delivery Fraction of Inspired Oxygen 07/10/25 19:52 07/10/25 20:00 07/10/25 20:00 Temperature Pulse Rate 54 L 62 Respiratory Rate 20 Blood Pressure Pulse Oximetry 97 Oxygen Delivery Room Air Room Air Fraction of Inspired Oxygen 21 07/10/25 21:03 07/10/25 22:00 07/10/25 23:23 Temperature 36.6 C Pulse Rate 66 56 L 64 Respiratory Rate 16 Blood Pressure 129/61 Pulse Oximetry 93 Oxygen Delivery Fraction of Inspired Oxygen 07/11/25 00:00 07/11/25 00:00 07/11/25 02:00 Temperature Pulse Rate 58 L 58 L Respiratory Rate Blood Pressure Pulse Oximetry Oxygen Delivery Room Air Fraction of Inspired Oxygen 07/11/25 03:26 07/11/25 04:00 07/11/25 04:00 Temperature 36.8 C Pulse Rate 51 L 52 L Respiratory Rate 17 Blood Pressure 115/73 Pulse Oximetry 96 Oxygen Delivery Room Air Fraction of Inspired Oxygen 07/11/25 06:00 Temperature Pulse Rate 51 L Respiratory Rate Blood Pressure Pulse Oximetry Oxygen Delivery Fraction of Inspired Oxygen Intake/Output Intake/Output: Intake & Output 07/08/25 07/09/25 07/10/25 07/11/25 23:59 23:59 23:59 23:59 Intake Total 1720 1020 400 Output Total 600 Balance 1720 1020 -200 Meds/Results Medications: Active Medications Generic Name Dose Route Start Last Admin Trade Name Freq PRN Reason Stop Dose Admin Amlodipine Besylate 10 mg 07/09/25 09:00 07/10/25 08:33 Amlodipine Besylate 10 Mg Tablet PO 10 mg DAILY JESUS Administration Aspirin 81 mg 07/09/25 09:00 07/10/25 08:33 Aspirin 81 Mg Enteric Tablet PO 81 mg DAILY JESUS Administration Atorvastatin Calcium 80 mg 07/09/25 09:00 07/10/25 08:33 Atorvastatin 40 Mg Tablet PO 80 mg DAILY JESUS Administration Clopidogrel Bisulfate 75 mg 07/09/25 09:00 07/10/25 08:33 Clopidogrel Bisulfate 75 Mg Tablet PO 75 mg DAILY JESUS Administration Dextrose 12.5 gm 07/08/25 21:23 Dextrose 50% 25 Gm/50 Ml Syringe IV PUSH PRN PRN Hypoglycemia Protocol Enoxaparin Sodium 100 mg 07/08/25 21:00 07/10/25 21:03 Enoxaparin 100 Mg/Ml Syringe SUB-Q 100 mg Q12HR JESUS Administration Glucagon 1 mg 07/08/25 21:23 Glucagon For Inj 1 Mg Vial IM PRN PRN Hypoglycemia Protocol Glucose 15 gm 07/08/25 21:23 Glucose Oral Gel 15 Gm Of Glucse In 37.5 Gm Tube PO PRN PRN Hypoglycemia Protocol Dextrose 1,000 mls @ 100 mls/hr 07/08/25 21:23 Dextrose 5% 1,000 Ml IVPB PRN PRN Hypoglycemia Protocol Insulin Aspart 2 - 5 units 07/09/25 08:00 07/10/25 18:30 Insulin Aspart (*Bkc) 100 Units/Ml SUB-Q Not Given TIDWM JESUS Protocol Metoprolol Tartrate 50 mg 07/08/25 21:30 07/10/25 21:03 Metoprolol Tartrate 50 Mg Tab PO 50 mg Q12HR JESUS Administration Pantoprazole Sodium 20 mg 07/09/25 09:00 07/10/25 08:33 Pantoprazole Sod Sesquihydrate 20 Mg Tab PO 20 mg QAM JESUS Administration Perflutren Lipid Microsphere 0 ml 07/08/25 16:19 Perflutren Lipid Microspheres 1.5 Ml Vial Diluted To 10 Ml Total Volume IV PUSH 07/11/25 16:19 ONCE PRN adequate visualization Protocol Radiology Results: ITS Impressions Chest X-Ray 07/08/25 09:53 Impression: No acute cardiopulmonary abnormality. Renal Ultrasound 07/09/25 15:06 Impression: No acute abnormality. Labs 07/10/25 03:56 07/10/25 03:56 Labs: Laboratory Results - last 24 hr 07/10/25 07/10/25 07/10/25 11:45 16:28 19:29 POC Capillary Glucose 189 H 127 H 141 H ASA Classification/Sedation ASA Classification/Sedation ASA Class: I Emergent: No Risks: Risks, benefits and alternatives explained and patient/family accepted plan for sedation. Patient re-evaluated immediately prior to sedation.
--- NOTE | 2025-07-11 07:17 | WPDHPUPDATE1 ---
History and Physical Update Update Date/Time: 07/11/25 07:17 History and Physical has been reviewed, including an updated exam of the patient. There are NO changes in the patient's condition. Risks, benefits, and alternatives have been discussed and questions answered. Patient agrees to proceed with procedure.
--- NOTE | 2025-07-11 07:18 | P.PCNCC_ITS ---
Cardiac Cath Procedure Note Date of procedure:: 07/11/25 Performing physician:: Mireille Ley MD Date of service 07/11/2025 Indication:: Chest pain Brief clinical history:: This 64-year-old patient with history of hypertension, hyperlipidemia, prior CABG with GOLD to LAD, SVG to diagonal SVG to left PDA. He had a heart catheterization 202 4or with dissection to RCA that was medium in caliber. Was treated by 2 drug-eluting sent but complicated by perforation and then 3 covered stents were used. He is here for chest pain Procedure Procedure performed:: 1-Moderate sedation that started at 7:24 a.m. and ended at 8:04 a.m. total duration 40 minutes using 4mg of Versed and [id number] fentanyl. The registered nurse was ingrid gimenez 2-Selective left and right coronary angiogram. 3-selective coronary bypass graft angiogram 3-Left heart catheterization with measurement of LVEDP and measurement of gradient across aortic valve. 4-Right common femoral arterial angiogram. Sedation/Medication given:: Moderate sedation. Access site:: Right common femoral artery. Estimated blood loss:: 10cc Procedure note:: After informed consent patient was brought in to label sewer with the was draped and prepped in usual manner. Moderate sedation was given and the right groin was infiltrated using 1% lidocaine. Five Burmese sheath was obtained using micropuncture needle and the modified Seldinger technique. Selective left coronary angiogram was done using JL4 catheter with the tip of the catheter placed in the left main coronary artery. Selective right coronary angiogram was done using JR4 catheter with the tip of the catheter placed to the right coronary artery. JR4 catheter was used for grafts to the GOLD, the SVG grafts. After that 5 Burmese pigtail catheter was advanced across the aortic valve into the left ventricle with measurement of LVEDP and measurement of gradient across aortic valve. GOLD catheter was used to image the GOLD to LAD, JR4 was used to image SVG to diagonal and left PDA Right common femoral arterial angiogram was done. Findings:: 1- left coronary artery is a large artery that divides into large LAD, large circumflex artery. Left main has minimal irregularities 2- left anterior descending artery is totally occluded mid segment 3- leftcircumflex artery is a large artery and dominant. Minimal irregularities. Left PDA is occluded and supplied by SVG graft 4- right coronary artery is medium in caliber and with patent stents proximally. Small run of. 5-SVG to diagonal is very large without significant obstruction 6-SVG to left PDA is very large. You can see dye hanging distally. The runoff is small. 7-gold to LAD is widely patent 5- LVEDP was 15 mm Hg and no gradient across aortic valve. 6- opening arterial pressure was 116/67 and closing pressure was 132/84 7- right femoral artery angiogram shows no significant disease in the right common femoral artery. Conclusion:: -patent SVG to diagonal. -patent SVG to left PDA however there is dye hanging the distal end of the graft I think due to poor run off -patent GOLD to LAD -patent stents proximal RCA Assessment and Plan Assessment and plan (1) CAD (coronary artery disease): Code(s): I25.10 - Atherosclerotic heart disease of [place] coronary artery without angina pectoris Status: Acute Plan Optimize antianginal medications. -continue aspirin Plavix
--- NOTE | 2025-07-11 10:13 | PM.PNCARD ---
Progress Note: A&P Assessment and Plan (1) Anginal equivalent: Code(s): I20.89 - Other forms of angina pectoris Status: Acute (2) Chest pain: Code(s): R07.9 - Chest pain, unspecified Status: Acute (3) Hypertension: Code(s): I10 - Essential (primary) hypertension Status: Acute (4) Hyperlipidemia: Code(s): E78.5 - Hyperlipidemia, unspecified Status: Acute (5) History of coronary artery bypass surgery: Code(s): Z95.1 - Presence of aortocoronary bypass graft Status: Acute (6) Diabetes mellitus with chronic kidney disease: Code(s): E11.22 - Type 2 diabetes mellitus with diabetic chronic kidney disease Status: Acute (7) Stage 3a chronic kidney disease: Code(s): N18.31 - Chronic kidney disease, stage 3a Status: Acute Plan Impression; 1. Patient with known coronary disease with history of CABG and multiple angioplasty in the past now presents with the chest pain with characteristics of anginal equivalent. EKG shows normal sinus rhythm without of 63 per minute, incomplete right bundle-branch block and nonspecific T changes. Low voltage is noted. Cardiac troponin negative x2. 2. Known history of hypertension, hyperlipidemia and type 2 diabetes. Hemoglobin A1c is 7.1. 3. Chronic stage IIIA kidney disease. Creatinine on admission was 1.4. Recommendations: #. Status post cardiac catheterization today which showed patent saphenous venous graft to diagonal and PDA and patent GOLD to LAD. There is a stent in proximal RCA which is also patent. #. Will DC full-dose subcu Lovenox. Continue with Toprol 50 mg b.i.d., isosorbide mononitrate 30 mg daily, aspirin 81 mg daily and Plavix 75 mg daily and atorvastatin 80 mg daily. Currently blood pressure 137/55 mm mercury and heart rate is 51 per minute . #. Laboratory data reviewed from 07/10/2025. Echocardiogram from 07/09/2025 reveals normal left ventricular size and systolic function estimated 55-60%. Left ventricle wall thickness is normal and left ventricular diastolic function is also normal without significant valvular problems. #. Follow-up post cardiac cath orders for right groin cardiac catheterization with rest for 4-6 hours. Overall patient did well with negative coronary angiography and patent cardiac graft and stents. Continue medical management And okay to discharge patient home on current medications. Follow up with his patient admitting representative as an outpatient. Subjective Date/time seen: 07/11/25 10:13 Interval history: Review of HPI: History of CAD. With history of stents and CABG. Last cath in 2022 showed patent GOLD to the LAD, patent SVG to the diagonal and patent SVG to the posterior lateral. His pLAD had 60% stenosis, mLAD 70% stenosis and LPDA 60-70% stenosis. He had RCA disease and had stents x 2 placed in pRCA, with 3 covered stents to the RCA to seal perforation. Last echo showed EF of 60%. continue aspirin, plavix and atorvastatin Chest pain. concerning for ACS as patient has anginal equivalent in patient with known CAD. His troponin have been negative x 2 and EKG demonstrates NSR with no acute ST/T wave changes. His CXR is with no acute cardiopulmonary process. His lipase is mildly elevated would check amylase as well. Would resume patient home aspirin 81 mg, metoprolol 50 mg BID, plavix 75 mg and atorvastatin 80 mg daily. Add isosorbide 30 mg daily. Will plan for LHC on Friday at 7:15. Can use therapeutic lovenox 1mg/kg BID in setting of ACS. Will do f/u echo to look for any new LV dysfunction or WMA. Past medical history also significant for history of chronic kidney disease with creatinine 1.5, hyperlipidemia, hypertension and diabetes. Patient also is morbidly obese with BMI of 29.8. Subjective: Patient was examined at the bedside. Patient is feeling better without any chest pain. Status post cardiac catheterization this morning. Cardiac catheterization revealed patent saphenous venous graft to diagonal, left PDA and GOLD to LAD with patent stent in proximal RCA. Right groin is stable post catheterization without hematoma and intact femoral flow. Review of Systems Review of Systems: 12 point review of system was completed. Pertinent positive and negative findings per HPI. Cardiac negative for chest pain or shortness of breath. Pulmonary negative for shortness of breath, cough or hemoptysis. Exam Narrative: Patient was examined at the bedside. Patient is awake alert oriented x3. Not in any acute distress. No shortness of breath, chest pain at rest or orthopnea. Vital signs were reviewed. Head and neck examination is unremarkable. Head is atraumatic. Sclerae is nonicteric. ENT examination is negative. Lungs are clear to auscultation percussion. Heart sounds reveal normal S1-S2 there is no significant murmurs S3 or S4. Healed central chest carpal Abdomen is obese without abdominal wall edema. There is no ascites. There is no hepatosplenomegaly. There is no tenderness. Bowel sounds present. Extremities reveal no pedal edema at this time. Intact dressing on the right groin without hematoma. Good femoral and distal pulses. Neurological examination is intact. Objective Data Vital Signs Vital Signs: Vital Signs - 24 hr 07/10/25 12:00 07/10/25 12:00 07/10/25 12:00 Temperature 37.2 C Pulse Rate 55 L 54 L Pulse Rate [Bilateral Pedal (Dorsalis Pedis)] Respiratory Rate 18 Blood Pressure 132/58 L Pulse Oximetry 99 Oxygen Delivery Room Air Fraction of Inspired Oxygen 07/10/25 12:40 07/10/25 14:00 07/10/25 16:00 Temperature 36.8 C Pulse Rate 57 L 56 L 56 L Pulse Rate [Bilateral Pedal (Dorsalis Pedis)] Respiratory Rate 18 Blood Pressure 146/63 H Pulse Oximetry 96 Oxygen Delivery Fraction of Inspired Oxygen 07/10/25 16:00 07/10/25 16:00 07/10/25 18:00 Temperature Pulse Rate 57 L 58 L Pulse Rate [Bilateral Pedal (Dorsalis Pedis)] Respiratory Rate Blood Pressure Pulse Oximetry Oxygen Delivery Room Air Fraction of Inspired Oxygen 07/10/25 19:26 07/10/25 19:52 07/10/25 20:00 Temperature 36.4 C L Pulse Rate 57 L 54 L Pulse Rate [Bilateral Pedal (Dorsalis Pedis)] Respiratory Rate 16 20 Blood Pressure 136/60 Pulse Oximetry 99 97 Oxygen Delivery Room Air Room Air Fraction of Inspired Oxygen 21 07/10/25 20:00 07/10/25 21:03 07/10/25 22:00 Temperature Pulse Rate 62 66 56 L Pulse Rate [Bilateral Pedal (Dorsalis Pedis)] Respiratory Rate Blood Pressure Pulse Oximetry Oxygen Delivery Fraction of Inspired Oxygen 07/10/25 23:23 07/11/25 00:00 07/11/25 00:00 Temperature 36.6 C Pulse Rate 64 58 L Pulse Rate [Bilateral Pedal (Dorsalis Pedis)] Respiratory Rate 16 Blood Pressure 129/61 Pulse Oximetry 93 Oxygen Delivery Room Air Fraction of Inspired Oxygen 07/11/25 02:00 07/11/25 03:26 07/11/25 04:00 Temperature 36.8 C Pulse Rate 58 L 51 L Pulse Rate [Bilateral Pedal (Dorsalis Pedis)] Respiratory Rate 17 Blood Pressure 115/73 Pulse Oximetry 96 Oxygen Delivery Room Air Fraction of Inspired Oxygen 07/11/25 04:00 07/11/25 06:00 07/11/25 08:40 Temperature Pulse Rate 52 L 51 L 56 L Pulse Rate [Bilateral Pedal (Dorsalis Pedis)] Respiratory Rate 17 Blood Pressure 143/62 H Pulse Oximetry 99 Oxygen Delivery Room Air Fraction of Inspired Oxygen 07/11/25 08:40 07/11/25 08:55 07/11/25 08:55 Temperature Pulse Rate 53 L Pulse Rate [Bilateral Pedal (Dorsalis Pedis)] 56 L 53 L Respiratory Rate 12 Blood Pressure 143/68 H Pulse Oximetry 99 Oxygen Delivery Room Air Fraction of Inspired Oxygen 07/11/25 09:10 07/11/25 09:10 07/11/25 09:25 Temperature Pulse Rate 52 L 51 L Pulse Rate [Bilateral Pedal (Dorsalis Pedis)] 52 L Respiratory Rate 12 13 Blood Pressure 131/69 149/63 H Pulse Oximetry 99 96 Oxygen Delivery Room Air Room Air Fraction of Inspired Oxygen 07/11/25 09:25 07/11/25 09:40 07/11/25 09:40 Temperature Pulse Rate 51 L Pulse Rate [Bilateral Pedal (Dorsalis Pedis)] 51 L 51 L Respiratory Rate 12 Blood Pressure 137/55 L Pulse Oximetry 97 Oxygen Delivery Room Air Fraction of Inspired Oxygen Intake/Output Intake/Output: Intake & Output 07/08/25 07/09/25 07/10/25 07/11/25 23:59 23:59 23:59 23:59 Intake Total 1720 1020 400 Output Total 600 Balance 1720 1020 -200 Meds/Results Medications: Active Medications Generic Name Dose Route Start Last Admin Trade Name Freq PRN Reason Stop Dose Admin Amlodipine Besylate 10 mg 07/09/25 09:00 07/10/25 08:33 Amlodipine Besylate 10 Mg Tablet PO 10 mg DAILY JESUS Administration Aspirin 81 mg 07/09/25 09:00 07/10/25 08:33 Aspirin 81 Mg Enteric Tablet PO 81 mg DAILY JESUS Administration Atorvastatin Calcium 80 mg 07/09/25 09:00 07/10/25 08:33 Atorvastatin 40 Mg Tablet PO 80 mg DAILY JESUS Administration Clopidogrel Bisulfate 75 mg 07/09/25 09:00 07/10/25 08:33 Clopidogrel Bisulfate 75 Mg Tablet PO 75 mg DAILY JESUS Administration Dextrose 12.5 gm 07/08/25 21:23 Dextrose 50% 25 Gm/50 Ml Syringe IV PUSH PRN PRN Hypoglycemia Protocol Glucagon 1 mg 07/08/25 21:23 Glucagon For Inj 1 Mg Vial IM PRN PRN Hypoglycemia Protocol Glucose 15 gm 07/08/25 21:23 Glucose Oral Gel 15 Gm Of Glucse In 37.5 Gm Tube PO PRN PRN Hypoglycemia Protocol Sodium Chloride 1,000 mls @ 125 mls/hr 07/11/25 08:26 Normal Saline Iv IV CONT 07/11/25 16:25 .Q8H ONE Insulin Aspart 2 - 5 units 07/09/25 08:00 07/10/25 18:30 Insulin Aspart (*Bkc) 100 Units/Ml SUB-Q Not Given TIDWM JESUS Protocol Metoprolol Tartrate 50 mg 07/08/25 21:30 07/10/25 21:03 Metoprolol Tartrate 50 Mg Tab PO 50 mg Q12HR JESUS Administration Pantoprazole Sodium 20 mg 07/09/25 09:00 07/10/25 08:33 Pantoprazole Sod Sesquihydrate 20 Mg Tab PO 20 mg QAM JESUS Administration Radiology Results: ITS Impressions Chest X-Ray 07/08/25 09:53 Impression: No acute cardiopulmonary abnormality. Renal Ultrasound 07/09/25 15:06 Impression: No acute abnormality. Labs Labs: Laboratory Results - last 24 hr 07/10/25 07/10/25 07/10/25 11:45 16:28 19:29 POC Capillary Glucose 189 H 127 H 141 H
[2025-07-11] MEDS: SODIUM CHLORIDE 0.9% IV 1,000 ML 125 ML IV CONT (10:15)
[2025-07-11] MEDS: ASPIRIN 81 MG ENTERIC TABLET PO (10:16)
[2025-07-11] MEDS: PANTOPRAZOLE SOD SESQUIHYDRATE 20 MG TAB PO (10:16)
[2025-07-11] MEDS: METOPROLOL TARTRATE 50 MG TAB PO (10:16)
[2025-07-11] MEDS: CLOPIDOGREL BISULFATE 75 MG TABLET PO (10:16)
[2025-07-11] MEDS: ATORVASTATIN 40 MG TABLET 80 MG PO (10:16)
--- NOTE | 2025-07-11 14:35 | P.DS_ITS ---
DS: Admitting Diagnosis Discharge Date 07/11/2025 Admitting Diagnosis Chest pain DS: Discharge Diagnosis Discharge Diagnosis (1) Chest pain: Code(s): R07.9 - Chest pain, unspecified Status: Acute (2) CAD (coronary artery disease): Code(s): I25.10 - Atherosclerotic heart disease of [place] coronary artery without angina pectoris Status: Acute (3) Hypertension: Code(s): I10 - Essential (primary) hypertension Status: Acute (4) Hyperlipidemia: Code(s): E78.5 - Hyperlipidemia, unspecified Status: Acute (5) Diabetes mellitus with chronic kidney disease: Code(s): E11.22 - Type 2 diabetes mellitus with diabetic chronic kidney disease Status: Acute (6) Stage 3a chronic kidney disease: Code(s): N18.31 - Chronic kidney disease, stage 3a Status: Acute DS: Summary Hospital Course Hospital Course: # Chest pain: Delete -cardiac enzymes have been negative x3. Treatment as ACS unstable angina -cardiology has been consulted. And recommended Would resume patient home aspirin 81 mg, metoprolol 50 mg BID, plavix 75 mg and atorvastatin 80 mg daily. Add isosorbide 30 mg daily. Planned for LHC on Friday at 7:15. Can use therapeutic lovenox 1mg/kg BID in setting of ACS. Will do f/u echo to look for any new LV dysfunction or WMA. -the patient has an extensive cardiac history with a 3 vessel CABG and a total of 6 stents.History of CAD. With history of stents and CABG. Last cath in 2022 showed patent GOLD to the LAD, patent SVG to the diagonal and patent SVG to the posterior lateral. His pLAD had 60% stenosis, mLAD 70% stenosis and LPDA 60-70% stenosis. He had RCA disease and had stents x 2 placed in pRCA, with 3 covered stents to the RCA to seal perforation. Last echo showed EF of 60%. continue aspirin, plavix and atorvastatin chronic kidney disease. Cr of 1.53. Appears at baseline. Will monitor. May benefit from IV hydration prior to LHC -the patient continues to have some discomfort when he is up moving around but becomes much less when he is laying still. Status post cardiac catheterization on 07/11/2025 -patent SVG to diagonal. -patent SVG to left PDA however there is dye hanging the distal end of the graft I think due to poor run off -patent GOLD to LAD -patent stents proximal RCA Plan to optimize antianginal medication and aspirin Plavix for which he will continue to follow up with Dr. Berman # CAD (coronary artery disease): -the patient has a total of 6 stents and 3 vessel CABG. Cardiology has seen the patient already and recommend that we continue the aspirin and Plavix. -continue atorvastatin # Hypertension: -continue with amlodipine if blood pressure allows -holding losartan with hydrochlorothiazide due to renal function. -continue with metoprolol # Hyperlipidemia: -continue with atorvastatin # Diabetes mellitus with chronic kidney disease: -A1c 7.1 -hold mounjaro -the patient stated he no longer takes metformin. # Stage 3a chronic kidney disease: -the patient stated that he was going to have a renal ultrasound next week. However since he is currently in the hospital 1 has been ordered. Renal ultrasound with no hydronephrosis -nephrology consult with greatly be appreciated. The patient stated he typically sees Dr. Gonsalez -daily BMPs -holding losartan and hydrochlorothiazide. -his creatinine is 1.53 which appears to be his baseline. His BUN is 30 which is slightly higher than his baseline. His GFR is 46 which is within his baseline. Time Spent with Patient Time attestation: Total time spent providing and/or coordinating discharge services: 40 minutes Exam Narrative: APPEARANCE: Well appearing, no pain, no distress, well-nourished. HEAD: normocephalic, atraumatic. EYES: PERRLA/EOMI, conjunctivae clear. NOSE: Normal no drainage NECK: Supple. No adenopathy, no masses. RESPIRATORY: Airway patent, respirations nonlabored. Clear to auscultation bilaterally, no rales, rhonchi, wheezing. CARDIOVASCULAR: Regular rate and rhythm without murmurs rubs or gallops. ABDOMINAL: Soft, nontender, nondistended, normal bowel sounds MUSCULOSKELETAL: Moves all extremities. Strength/ROM intact, No edema, No calf tenderness. NEURO: Alert. Cranial nerves II through XII intact. Grossly intact SKIN: Warm, dry. Normal Color DS: Data Data Completed and Pending Labs on day of discharge: Labs from last 24 hours 07/11/25 07/10/25 07/10/25 10:15 19:29 16:28 POC Capillary Glucose 115 H 141 H 127 H Procedures/Treatments: Cardiac Cath Procedure Note Date of procedure:: 07/11/25 Performing physician:: Mireille Ley MD Date of service 07/11/2025 Indication:: Chest pain Brief clinical history:: This 64-year-old patient with history of hypertension, hyperlipidemia, prior CABG with GOLD to LAD, SVG to diagonal SVG to left PDA. He had a heart catheterization 202 4or with dissection to RCA that was medium in caliber. Was treated by 2 drug-eluting sent but complicated by perforation and then 3 covered stents were used. He is here for chest pain Procedure Procedure performed:: 1-Moderate sedation that started at 7:24 a.m. and ended at 8:04 a.m. total duration 40 minutes using 4mg of Versed and [id number] fentanyl. The registered nurse was ingrid gimenez 2-Selective left and right coronary angiogram. 3-selective coronary bypass graft angiogram 3-Left heart catheterization with measurement of LVEDP and measurement of gradient across aortic valve. 4-Right common femoral arterial angiogram. Sedation/Medication given:: Moderate sedation. Access site:: Right common femoral artery. Estimated blood loss:: 10cc Procedure note:: After informed consent patient was brought in to paving and surfacing labourer with the was draped and prepped in usual manner. Moderate sedation was given and the right groin was infiltrated using 1% lidocaine. Five Albanian sheath was obtained using micropuncture needle and the modified Seldinger technique. Selective left coronary angiogram was done using JL4 catheter with the tip of the catheter placed in the left main coronary artery. Selective right coronary angiogram was done using JR4 catheter with the tip of the catheter placed to the right co ronary artery. JR4 catheter was used for grafts to the GOLD, the SVG grafts. After that 5 Albanian pigtail catheter was advanced across the aortic valve into the left ventricle with measurement of LVEDP and measurement of gradient across aortic valve. GOLD catheter was used to image the GOLD to LAD, JR4 was used to image SVG to diagonal and left PDA Right common femoral arterial angiogram was done. Findings:: 1- left coronary artery is a large artery that divides into large LAD, large circumflex artery. Left main has minimal irregularities 2- left anterior descending artery is totally occluded mid segment 3- leftcircumflex artery is a large artery and dominant. Minimal irregularities. Left PDA is occluded and supplied by SVG graft 4- right coronary artery is medium in caliber and with patent stents proximally. Small run of. 5-SVG to diagonal is very large without significant obstruction 6-SVG to left PDA is very large. You can see dye hanging distally. The runoff is small. 7-gold to LAD is widely patent 5- LVEDP was 15 mm Hg and no gradient across aortic valve. 6- opening arterial pressure was 116/67 and closing pressure was 132/84 7- right femoral artery angiogram shows no significant disease in the right common femoral artery. Conclusion:: -patent SVG to diagonal. -patent SVG to left PDA however there is dye hanging the distal end of the graft I think due to poor run off -patent GOLD to LAD -patent stents proximal RCA Assessment and Plan Assessment and plan (1) CAD (coronary artery disease): Code(s): I25.10 - Atherosclerotic heart disease of [place] coronary artery without angina pectoris Status: Acute Plan Optimize antianginal medications. -continue aspirin Plavix Imaging Radiologist's impression: ITS Impressions Chest X-Ray 07/08/25 09:53 Impression: No acute cardiopulmonary abnormality. Renal Ultrasound 07/09/25 15:06 Impression: No acute abnormality. Discharge Plan Discharge Attending physician on discharge: Andres Rivas Consulting providers: Dany Jack Discharging Clinician: Andres Rivas Anticipated Discharge Date/Time: 07/11/25 14:39 Patient Disposition: Home Activity: as tolerated Diet: heart healthy and diabetic Patient Instructions: Antibiotic Form, Clopidogrel (By mouth), Chest Pain (DC) Patient Language: Indonesian Stand Alone Forms: General Discharge Information Follow-up/Referrals: [facility],MD Freddy [Primary Care Provider, Unknown] - 1 Week Gerard Berman MD [Physician, Cardiology] - 2 Weeks Discharge Medications: Continued metoprolol tartrate 50 mg tablet 50 mg PO Q12H amlodipine 10 mg tablet 10 mg PO DAILY losartan-hydrochlorothiazide 100-12.5 mg tablet 1 tablet PO DAILY fenofibrate 40 mg tablet 48 mg PO HS aspirin 81 mg tablet,delayed release (DR/EC) 81 mg PO DAILY Mounjaro 5 mg/0.5 mL pen injector 5 mg subcut WEEKLY meloxicam 15 mg tablet 15 mg PO DAILY Skyrizi 150 mg/mL pen injector 150 mg subcut ONCE Patient Comments: Next dose due 07/29 Rx Instructions: Q every 12 weeks atorvastatin 80 mg tablet 80 mg PO DAILY clopidogrel 75 mg Tablet 75 mg PO DAILY omeprazole 20 mg Capsule,Delayed Release(Dr/Ec) 20 mg PO DAILY ergocalciferol (vitamin D2) 1,000 unit Capsule 1,000 unit PO DAILY Discontinued metformin 500 mg Tablet 1,000 mg PO BID Date of admission: 07/09/25 16:28 Primary Care Provider: Aurora,Freddy Admitting Provider: Andres Rivas Attending physician on admission: Andres Rivas Condition: Improved
--- NOTE | 2025-07-11 15:39 | PC.NURSE ---
On 07/11/25, the student, Marifer Kyle and Clay Carrero, provided care and completed [facility] documentation on this patient. I have reviewed the student's documentation and agree with the findings.Jessy MSN, RN
--- NOTE | 2025-07-11 17:13 | PC.NURSE ---
Patient discharged to home. Discussed all discharge instructions with patient and family member including post cardiac cath instructions, and medications, last dose taken and when next dose is due. Patient and family member verbalize understanding at this time. Patient IV removed intact. amf mechanic removed and patient dressed in street clothes. Taken to personal vehicle.
== END 2025-07-11 16:13 | disposition home or self-care (01) | DRG 287 ==
LOC: ANHED 16:01 → ANHIMU 17:17
PROVIDERS: Internal Medicine Cardiovascular Disease; Nurse Practitioner; Nurse Practitioner Gerontology; Admitting Provider Internal Medicine; Emergency Provider Emergency Medicine; PCP Internal Medicine; Visit Provider Internal Medicine
PROC: 4A023N7 Measurement of Cardiac Sampling and Pressure, Left Heart, Percutaneous Approach (ICD-10-PCS; CPT 93459; principal; 2025-07-11 07:15)
DX: I25.810 Atherosclerosis of coronary artery bypass graft(s) without angina pectoris (principal); I20.89 Other forms of angina pectoris; I12.9 Hypertensive chronic kidney disease with stage 1 through stage 4 chronic kidney disease, or unspecified chronic kidney disease; N18.31 Chronic kidney disease, stage 3a; E66.9 Obesity, unspecified; E78.5 Hyperlipidemia, unspecified; E11.22 Type 2 diabetes mellitus with diabetic chronic kidney disease; G89.4 Chronic pain syndrome; I25.2 Old myocardial infarction; K58.9 Irritable bowel syndrome, unspecified; K21.9 Gastro-esophageal reflux disease without esophagitis; L40.50 Arthropathic psoriasis, unspecified; Z95.1 Presence of aortocoronary bypass graft; Z95.5 Presence of coronary angioplasty implant and graft; Z90.49 Acquired absence of other specified parts of digestive tract; Z87.891 Personal history of nicotine dependence; Z79.85 Long-term (current) use of injectable non-insulin antidiabetic drugs; Z79.82 Long term (current) use of aspirin; Z79.02 Long term (current) use of antithrombotics/antiplatelets; Z68.29 Body mass index [BMI] 29.0-29.9, adult
CPT/HCPCS: 36415; 71046; 76770; 80048; 80053; 80061; 82150; 82948; 83036; 83690; 83735; 84484; 85025; 85027; 85610; 85730; 93005; 93306; 93459; 96372; 99285; A9270; C1769; C1887; C1894; G0269; G0378; J1644; J1650; J2003; J2250; J2270; J3010; J3475; J7030; J7040; J7050